=== PATIENT | male | born 1930 | race Caucasian/White ===

== ENCOUNTER → 2016-11-27 | Outpatient (CLI) | payer OTHER, BC ==
[~2016-11-27] MED LIST: ACET325T96 PO; ACET650S10 PR; ALEN70TA4 PO; ALL100 PO; AMB5 PO; ASCO1CAP3 PO; ASPI81TA28 PO; BACI500O11 NAE; BISA10SU5 PR; CARB0.5D8 OP; CHOL20009 PO; COEN100C7 PO; CYAN100020 PO; DSY/150 PO; FERR1TAB13 PO; FINA5TAB4 PO; FLUT1SPR12 NAE; FRS/40 PO; FURO40TA3 PO; GABA-112 PO; GABA1CAP4 PO; GABA1CAP5 PO; HYDRAER4 PR; LCTS240 PO; LPR25 PO; LPT40 PO; LSX20 PO; MAGN1TAB19 PO; MAGN400T6 PO; MAGNSUS5 PO; METO1TAB54 PO; METO25TA3 PO; MOMLX PO; ONDA4TAB46 PO; OXYC-57 PO; PRLSR20 PO; PROP20TA66 PO; PYRI100T4 PO; RXC5 PO; SALI0.658 NAE; SALI1SPR3 NAE; SODIENE PR; SPIR25TA PO; SPIR50TA2 PO; TRAZ50TA35 PO
[2016-11-27 10:22] LABS: BLOOD UREA NITROGEN 75 mg/dl (7-18); BUN/CREATININE RATIO 41.4 (10-20); CARBON DIOXIDE 25 mmol/L (21-32); CHLORIDE 102 mmol/L (98-107); GLUCOSE 106 mg/dl (70-99); POTASSIUM 4.9 mmol/L (3.5-5.1); SODIUM 137 mmol/L (136-145)
== END | disposition home or self-care (01) ==
LOC: C.LABFOXAC 09:09 → EDSTATUS 12-01 11:40
PROVIDERS: ATTEND Internal Medicine
DX: I50.9 Heart failure, unspecified (principal)

== ENCOUNTER → 2016-12-04 | Outpatient (CLI) | payer OTHER, BC ==
[2016-12-04 08:30] LABS: BLOOD UREA NITROGEN 57 mg/dl (7-18); BUN/CREATININE RATIO 29.7 (10-20); CALCIUM 8.1 mg/dl (8.5-10.1); CARBON DIOXIDE 23 mmol/L (21-32); CHLORIDE 108 mmol/L (98-107); GLUCOSE 128 mg/dl (70-99); POTASSIUM 5.1 mmol/L (3.5-5.1); SODIUM 140 mmol/L (136-145)
[2016-12-04 08:32] LABS: HEMATOCRIT 27.3 % (42-52); MEAN CELL VOLUME 96.5 fL (80-100); MEAN CORPUSCULAR HGB CONC 31.1 g/dl (32-36); MEAN PLATELET VOLUME 9.9 fL (7.4-10.4); PLATELET COUNT 102 K/uL (130-400); RED BLOOD COUNT 2.83 M/uL (4.7-6.1)
== END | disposition home or self-care (01) ==
LOC: C.LABFOXDH 07:57
PROVIDERS: ATTEND Internal Medicine
DX: D64.9 Anemia, unspecified (principal)

== ENCOUNTER → 2016-12-12 | Outpatient (CLI) | payer OTHER, BC ==
[2016-12-12 09:39] LABS: MEAN CELL VOLUME 94.3 fL (80-100); MEAN CORPUSCULAR HEMOGLOBIN 29.6 pg (25-34); MEAN CORPUSCULAR HGB CONC 31.4 g/dl (32-36); RED BLOOD COUNT 2.97 M/uL (4.7-6.1); WHITE BLOOD COUNT 3.95 K/uL (4.8-10.8)
[2016-12-12 09:55] LABS: BLOOD UREA NITROGEN 52 mg/dl (7-18); BUN/CREATININE RATIO 30.6 (10-20); CALCIUM 8.3 mg/dl (8.5-10.1); CARBON DIOXIDE 19 mmol/L (21-32); CHLORIDE 111 mmol/L (98-107); GLUCOSE 102 mg/dl (70-99); POTASSIUM 5.5 mmol/L (3.5-5.1); SODIUM 140 mmol/L (136-145)
[2016-12-12 10:06] LABS: MEAN PLATELET VOLUME 10.4 fL (7.4-10.4); PLATELET COUNT 91 K/uL (130-400)
== END | disposition home or self-care (01) ==
LOC: C.LABFOXDH 08:56
PROVIDERS: ATTEND Internal Medicine
DX: I50.22 Chronic systolic (congestive) heart failure (principal)

== ENCOUNTER → 2017-02-09 | Outpatient (CLI) | payer OTHER, BC ==
[~2017-02-09] MED LIST changes: +HYDR1AER23 PR; -HYDRAER4 PR
[2017-02-09 08:01] LABS: HEMATOCRIT 30.3 % (42-52); MEAN CELL VOLUME 91.8 fL (80-100); MEAN CORPUSCULAR HGB CONC 32.7 g/dl (32-36); MEAN PLATELET VOLUME 12.4 fL (7.4-10.4); PLATELET COUNT 83 K/uL (130-400); WHITE BLOOD COUNT 3.54 K/uL (4.8-10.8)
[2017-02-09 08:08] LABS: BLOOD UREA NITROGEN 72 mg/dl (7-18); MAGNESIUM 2.8 mg/dl (1.8-2.4)
[2017-02-09 08:15] LABS: FERRITIN 101.4 ng/ml (8.0-388.0); TOTAL IRON BINDING CAPACITY 347 mcg/dl (250-450)
[2017-02-09 08:17] LABS: BASO % 0.3 %; BASO ABS # 0.01 K/uL (0-0.2); COMPLETE YES; EOS % 2.5 %; IG% 0.3 %; LYMPH % 27.7 %; LYMPH ABS # 0.98 K/uL (1.2-3.4); MONO % 9.6 %; NEUT % 59.6 %
[2017-02-09 08:19] LABS: PLT ESTIMATE DECREASED; POIKILOCYTOSIS PRESENT
--- NOTE | 2017-03-07 13:37 | EDITING REQUIRED CODING QUERY ---
CQSUPPORTING DIAGNOSIS NEEDED A supporting diagnosis is required for the test/procedure performed on this patient in order for us to be reimbursed by the patient's insurance. Please provide a supporting diagnosis for the following test/procedure listed below next to the test name along with your signature. *If there is no additional diagnosis for this patient that would support the following test/procedure please document that below next to the test/procedure. Test(s)/Procedure(s) that require a supporting diagnosis: DOS 02/09/17 FOUR TESTS FOR SERUM IRON STUDIES DX: D64.9 Anemia, unspecified Provider Signature: Date: Thank you Robina Gurrola Health Information Management Once completed, please kindly fax back to [phone] For questions please call [phone]
== END | disposition home or self-care (01) ==
LOC: C.LABFOXDH 07:40
PROVIDERS: ATTEND Internal Medicine Cardiovascular Disease
DX: N18.3 Chronic kidney disease, stage 3 (moderate) (principal); N25.81 Secondary hyperparathyroidism of renal origin; I25.10 Atherosclerotic heart disease of native coronary artery without angina pectoris; D64.9 Anemia, unspecified

== ENCOUNTER → 2017-02-12 | Outpatient (CLI) | payer OTHER, BC ==
[2017-02-12 15:03] LABS: URINE APPEARANCE CLEAR (CLEAR); URINE BILIRUBIN NEG (NEG); URINE COLOR YELLOW; URINE EPITHELIAL CELL AUTO 0-5 /lpf (0-5); URINE NITRITE NEG (NEG); URINE SPECIFIC GRAVITY 1.018 (1.000-1.030); UROBILINOGEN NEG (NEG); ZZUR CULT IF INDIC CLEAN CATCH NO
[2017-02-12 15:08] LABS: MANUAL MICROSCOPIC REQUIRED? NO; REVIEW REQ? NO
[2017-02-12 15:23] LABS: URINE PROTIEN/CREAT RATIO 0.6 (0-0.2); URINE TOTAL PROTEIN 40.4 mg/dl (0-11.9)
== END | disposition home or self-care (01) ==
LOC: C.LAB1850 13:43
PROVIDERS: ATTEND Internal Medicine Nephrology
DX: N28.9 Disorder of kidney and ureter, unspecified (principal)

== ENCOUNTER → 2017-02-14 | Outpatient (CLI) | payer OTHER, BC ==
[~2017-02-14] MED LIST changes: -MAGN1TAB19 PO
--- NOTE | 2017-02-14 13:21 | DIAGNOSTIC IMAGING REPORT ---
C-SPINE ROUTINE W/FLEX EXT CLINICAL HISTORY: NECK PAIN COMPARISON STUDY: Cervical spine CT 09/26/2009 FINDINGS: 8 images of the cervical spine submitted. Straightening of the cervical spine. Alignment remains intact through both flexion and extension. Prevertebral soft tissues and the C1-C2 interval are maintained. No fracture or subluxation. Mild disc space narrowing at C2-C3 and C3-C4. Moderate disc space narrowing at C4-C5. Severe disc space narrowing and small endplate osteophytes at C5-C6 and C6-C7. Severe bilateral neural foraminal narrowing at C3-C4 and C4-C5. IMPRESSION: 1. Straightening of the cervical spine. Alignment remains intact through both flexion and extension. 2. Multilevel degenerative disc disease as described above. 3. Severe bilateral neural foraminal narrowing at C3-C4 and C4-C5. Electronically signed by: Bryan Roman M.D. 02/14/2017 1:19 PM Dictated Date/Time: 02/14/2017 1:16 PM
--- NOTE | 2017-02-14 15:29 | Pain Clinic Return Visit ---
Pain Clinic Return Visit Date of Service Feb 13, 2017. Reason For Visit 1. Diabetic peripheral neuropathy. 2. Cervical spine pain. Subjective Abhijeet Lanza is a 86-year-old male who presents to follow up evaluation. He has history of diabetic peripheral neuropathy and has been experiencing bilateral lower extremity numbness paresthesia and dysesthesia. At the last visit, he was prescribed topical gel to apply to both feet as well as gabapentin for his peripheral neuropathy. His gabapentin dose was recently increased prior to this visit. He reports good efficacy from the combination and reports decreased in the symptoms of diabetic peripheral neuropathy in his feet. He denies any side effects to the use of gabapentin and oxycodone on a when necessary basis. He reports that his peripheral neuropathy is well controlled at present time. However, today he complains of expressing new onset of right-sided cervical spine pain. He reports that his massages next several days ago and has been experiencing moderately severe pain with left lateral rotation or left lateral tilt with the pain being localized in the lateral right cervical spine. He denies any radiation into the upper extremity. He denies any gait disturbance related to his new onset of cervical spine pain. He rates his cervical spine pain as 8/10 when severe. He reports pain to be 0/ 10 when he is immobile. Pain occurs consistently with rotation of his cervical spine to the right side. Pain improves with keeping his head immobile. Denies any fevers, chills, loss of bowel bladder control, saddle anesthesia, any upper extremity motor weakness or distal radiation of the pain. Home Medications Scheduled Alendronate Sodium (Fosamax), 70 MG PO WK Allopurinol (Allopurinol), 1 TAB PO QAM Ascorbic Acid (Vitamin C), 500 MG PO QAM Aspirin (Aspirin Ec), 81 MG PO QAM Atorvastatin (Atorvastatin Calcium), 40 MG PO QAM Cholecalciferol (Vitamin D), 1 TAB PO QAM Coenzyme Q10 (Ubidecarenone) (Coq10), 100 MG PO QAM Cyanocobalamin (Vitamin B12), 1 TAB PO QAM Ferrous Sulfate (Kp Ferrous Sulfate), 1 TAB PO DAILY Finasteride (Proscar), 5 MG PO QAM Gabapentin (Neurontin), 400 MG PO HS Gabapentin (Neurontin), 1 CAP PO HS Propranolol HCl (Propranolol HCl), 40 MG PO TID Pyridoxine (Vitamin B6), 100 MG PO QAM Zolpidem Tartrate (Zolpidem Tartrate), 1 TAB PO HS Scheduled PRN Acetaminophen Tab (Tylenol), 650 MG PO Q4H PRN for RN Carboxymethylcellulose-Glyceri (Optive Sensitive), Unknown Dose OP UD PRN for EYE DISCOMFORT Magnesium Hydroxide (Milk Of Magnesia), 30 ML PO Q2D PRN for RN Oxycodone/Acetaminophen 5MG/325MG (Percocet 5MG/325MG), 1-2 TABLETS PO Q4H PRN for Pain Miscellaneous Medications Gabapentin (Neurontin), 200 MG PO Allergies Coded Allergies: No Known Allergies (Verified , 01/02/17) Review of Systems Denies any recent history of fever, night sweats, unexplained weight loss, or constitutional symptoms. Otherwise, 8 point review of system has been reported to be negative. Objective Height feet, inches. Weight (Kilograms) (Pounds) Physical Exam: Mr. Lanza appears his stated age of 86. He is awake and alert. He is oriented time, place and person. He has poor short-term recall. He sensorium is clear. His cognition is intact. Inspection cervical spine demonstrates exaggerated cervical lordosis. He has decreased range of motion of the cervical spine, especially with right lateral rotation or right tilt. There is crepitus with rotation of the cervical spine in all planes. Provocative testing of the facet joint produces pain in the mid cervical spine on the right side. There is diffuse myofascial tenderness along the posterior and lateral cervical spine muscles. Spurling's maneuver is negative. He demonstrates intact and symmetrical motor strength and sensation in the upper extremities without deficits. Gait is unsteady, guarded and shuffling. Laboratory / Imaging Test 12/12/16 06:10 02/09/17 06:20 02/12/17 00:00 Range/Units Sodium Level 140 136-145 mmol/L Potassium Level 5.5 H 3.5-5.1 mmol/L Chloride Level 111 H 98-107 mmol/L Carbon Dioxide Level 19 L 21-32 mmol/L Anion Gap 10.0 3-11 mmol/L BUN/Creatinine Ratio 30.6 H 10-20 Random Glucose 102 H 70-99 mg/dl Calcium Level 8.3 L 8.5-10.1 mg/dl White Blood Count 3.54 L 4.8-10.8 K/uL Red Blood Count 3.30 L 4.7-6.1 M/uL Hemoglobin 9.9 L 14.0-18.0 g/dL Hematocrit 30.3 L 42-52 % Mean Corpuscular Volume 91.8 80-100 fL Mean Corpuscular Hemoglobin 30.0 25-34 pg Mean Corpuscular Hemoglobin Concent 32.7 32-36 g/dl Platelet Count 83 L 130-400 K/uL Mean Platelet Volume 12.4 H 7.4-10.4 fL Neutrophils (%) (Auto) 59.6 % Lymphocytes (%) (Auto) 27.7 % Monocytes (%) (Auto) 9.6 % Eosinophils (%) (Auto) 2.5 % Basophils (%) (Auto) 0.3 % Neutrophils # (Auto) 2.11 1.4-6.5 K/uL Lymphocytes # (Auto) 0.98 L 1.2-3.4 K/uL Monocytes # (Auto) 0.34 0.11-0.59 K/uL Eosinophils # (Auto) 0.09 0-0.5 K/uL Basophils # (Auto) 0.01 0-0.2 K/uL RDW Standard Deviation 53.8 H 36.4-46.3 fL RDW Coefficient of Variation 16.1 H 11.5-14.5 % Immature Granulocyte % (Auto) 0.3 % Immature Granulocyte # (Auto) 0.01 0.00-0.02 K/uL Platelet Estimate DECREASED L Poikilocytosis PRESENT Blood Urea Nitrogen 72 H 7-18 mg/dl Creatinine 2.30 H 0.60-1.40 mg/dl Estimated GFR () 28.3 Estimated GFR (Non- 24.4 Magnesium Level 2.8 H 1.8-2.4 mg/dl Iron Level 43 35-175 mcg/dl Total Iron Binding Capacity 347 250-450 mcg/dl Transferrin 277 200-360 mg/dl Transferrin % Saturation 11 L 20-50 % Ferritin 101.4 8.0-388.0 ng/ml 25-Hydroxy Vitamin D Total 38.5 30-100 ng/ml Parathyroid Hormone (Intact) 52.3 11.1-79.5 pg/mL Urine Color YELLOW Urine Appearance CLEAR CLEAR Urine pH 5.0 4.5-7.5 Urine Specific [place] 1.018 1.000-1.030 Urine Protein TRACE H NEG Urine Glucose (UA) NEG NEG Urine Ketones NEG NEG Urine Occult Blood NEG NEG Urine Nitrite NEG NEG Urine Bilirubin NEG NEG Urine Urobilinogen NEG NEG Urine Leukocyte Esterase NEG NEG Urine WBC (Auto) 0 0-5 /hpf Urine RBC (Auto) 0-4 0-4 /hpf Urine Hyaline Casts (Auto) 1-5 0-5 /lpf Urine Epithelial Cells (Auto) 0-5 0-5 /lpf Urine Bacteria (Auto) NEG NEG Urine Random Creatinine 71.0 mg/dl Urine Random Total Protein 40.4 H 0-11.9 mg/dl Urine Random Sodium 53 mEq/L Urine Protein/Creatinine Ratio 0.6 H 0-0.2 No cervical spine imaging available. Patient scheduled to undergo cervical spine x-rays at [facility] tomorrow. Assessment 1. Diabetic peripheral polyneuropathy. Improving symptoms her current treatment regimen. 2. Cervical spondylosis. 3. Myofascial pain cervical spine, right side. Recommendations 1. Continue current treatment regimen for the diabetic peripheral polyneuropathy. 2. Recommend physical therapy with soft tissue techniques, electrical stimulation, ultrasound, heat and active and passive range of motion for the cervical spine pain. 3. If physical therapy is not efficacious, would then recommend diagnostic medial branch blocks or intra-articular cervical facet joint injections. 4. [] 5. [] Follow-Up After physical therapy completed. Dragon Voice Recognition This chart was completed in part utilizing [employer] Voice Recognition Software. Random word insertions, pronoun errors, and incomplete sentences are an occasional consequence of this system due to software limitations and ambient noise. Any questions or concerns about the content, text or information contained within the body of this dictation should be directly addressed to the provider for clarification.
== END | disposition home or self-care (01) ==
LOC: C.RAD 11:59
PROVIDERS: ATTEND Internal Medicine
DX: M50.30 Other cervical disc degeneration, unspecified cervical region (principal)

== ENCOUNTER 2017-02-21 12:07 | Inpatient (IN) | payer OTHER, BC ==
[~2017-02-21] VITALS: Ht 175.3 cm; Wt 73.8 kg
[~2017-02-21 12:07] MED LIST changes: -ACET650S10 PR; -BACI500O11 NAE; -BISA10SU5 PR; -DSY/150 PO; -FLUT1SPR12 NAE; -FRS/40 PO; -FURO40TA3 PO; -GABA1CAP4 PO; -HYDR1AER23 PR; -LCTS240 PO; -LPR25 PO; -LSX20 PO; -MAGN400T6 PO; -METO1TAB54 PO; -METO25TA3 PO; -MOMLX PO; -ONDA4TAB46 PO; -PRLSR20 PO; -RXC5 PO; -SALI0.658 NAE; -SALI1SPR3 NAE; -SODIENE PR; -SPIR25TA PO; -SPIR50TA2 PO; -TRAZ50TA35 PO
[2017-02-21] MEDS ORDERED: RAPID SEQUENCE INDUCTION BAG ONE (12:17)
--- NOTE | 2017-02-21 12:44 | DIAGNOSTIC IMAGING REPORT ---
CT SCAN OF THE BRAIN WITHOUT IV CONTRAST CLINICAL HISTORY: Unresponsive. COMPARISON STUDY: CT of the brain dated 06/21/2015. TECHNIQUE: Unenhanced axial CT scan of the brain is performed from the vertex to the skull base. CT DOSE: 1362.80 mGy.cm FINDINGS: Brain parenchyma: There are age-related involutional changes noting moderate confluent subcortical and periventricular microangiopathic change. There is no hemorrhage, mass effect, or evidence of acute territorial ischemia by CT criteria. 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 A chronic lacunar infarct is noted in the left caudate head. Camara-white matter is preserved. No extra-axial fluid collection is seen. Ventricles, sulci, cisterns: Prominent secondary to involutional change. Intracranial vasculature: There is atherosclerotic calcification of the cavernous carotid and vertebral arteries. Calvarium: The skeletal structures are osteopenic. No depressed calvarial fracture is seen. Sinuses and mastoids: Trace mucosal thickening is seen within the left sphenoid sinus. The remaining visualized paranasal sinuses are clear. The mastoid air cells are well pneumatized. Orbits: The bony orbits are grossly intact. IMPRESSION: Senescent changes as above with no hemorrhage, mass effect, or evidence of acute territorial ischemia by CT criteria. Electronically signed by: Wolfgang Howe M.D. 02/21/2017 12:42 PM Dictated Date/Time: 02/21/2017 12:40 PM
--- NOTE | 2017-02-21 12:51 | DIAGNOSTIC IMAGING REPORT ---
CT SCAN OF THE CHEST WITHOUT IV CONTRAST CLINICAL HISTORY: Unresponsive. COMPARISON STUDY: Chest CT scan dated 10/05/2016 and 08/15/2015. CT angiogram of the chest dated 10/05/2016. TECHNIQUE: CT scan of the thorax was performed from the thoracic inlet to the upper abdomen. Images are reviewed in the axial, sagittal, and coronal planes. IV contrast was not administered for this examination as per the referring clinician. The examination is degraded by streak artifact from the patient's arms which could not be elevated above the chest. The examination is also degraded by motion artifact. FINDINGS: Thyroid: Imaged portions of the thyroid gland are normal in size and attenuation. Thoracic aorta: There is atherosclerotic calcification of the thoracic aorta. The aortic arch demonstrates standard 3-vessel anatomy. There is unchanged aneurysmal dilatation of the ascending thoracic aorta which measures up to 6.5 cm in diameter. There is no evidence of intramural hematoma or periaortic hemorrhage. The aortic arch and the descending thoracic aorta are normal in caliber. A dissection flap is again seen within the ascending thoracic aorta as seen on image #[id number]. Heart: The heart is markedly enlarged and without pericardial effusion. There is diminished attenuation of the cardiac blood pool as compared to the myocardium suggesting anemia. The coronary arteries and mitral annulus are densely calcified. Lungs and pleural spaces: Emphysema is observed. There is a small right pleural effusion with associated atelectasis. No airspace consolidation is identified typical for pneumonia. A calcified granuloma is seen at the left lung base. No left pleural effusion is identified. There is no airspace consolidation typical for pneumonia. The trachea and central airways appear clear. A tracheal diverticulum is identified at the thoracic inlet. Mediastinum: There is no mediastinal lymphadenopathy. There are calcification containing subcarinal nodes. Ana: Not well assessed without IV contrast. Axillae: There is no axillary lymphadenopathy. Upper abdomen: The liver is cirrhotic in morphology and heterogeneous in attenuation. There is nodularity of the hepatic surface contour. Upper abdominal ascites is identified. Gynecomastia is noted. Skeletal structures: The skeletal structures are osteopenic. Degenerative change is noted throughout the thoracic spine. Again seen are mild superior endplate compression deformities of T2, T3, and T4. No lytic or blastic bony lesions are identified. IMPRESSION: 1. 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 A focal dissection is unchanged as visualized on this unenhanced examination. There is no CT evidence of aneurysm rupture. 2. Emphysema. A small right pleural effusion is again noted. No airspace consolidation is identified typical for pneumonia. 3. Marked cardiomegaly. 4. Cirrhotic liver morphology and upper abdominal ascites. 5. Additional findings as above. Electronically signed by: Wolfgang Howe M.D. 02/21/2017 12:49 PM Dictated Date/Time: 02/21/2017 12:42 PM
[2017-02-21 13:08] LABS: ISTAT HEMOGLOBIN 11.6 g/dl (14.0-18.0); ISTAT IONIZED CALCIUM 1.24 mmol/l (1.12-1.32)
[2017-02-21 13:09] LABS: HEMATOCRIT 32.9 % (42-52); MEAN CELL VOLUME 94.8 fL (80-100); MEAN CORPUSCULAR HEMOGLOBIN 30.3 pg (25-34); MEAN CORPUSCULAR HGB CONC 31.9 g/dl (32-36); RED BLOOD COUNT 3.47 M/uL (4.7-6.1); WHITE BLOOD COUNT 3.62 K/uL (4.8-10.8)
[2017-02-21 13:11] LABS: MEAN PLATELET VOLUME 10.5 fL (7.4-10.4); PLATELET COUNT 70 K/uL (130-400)
--- NOTE | 2017-02-21 13:11 | DIAGNOSTIC IMAGING REPORT ---
CT SCAN OF THE ABDOMEN AND PELVIS WITHOUT CONTRAST CLINICAL HISTORY: Syncope. Renal failure. Possible ruptured abdominal aortic aneurysm. Unresponsive patient. COMPARISON STUDY: 10/05/2016 TECHNIQUE: CT scan of the abdomen and pelvis was performed from the lung bases to the proximal femurs. Images are reviewed in the axial, sagittal, and coronal planes. IV contrast was not administered for this examination. CT DOSE: FINDINGS: Lower chest: The heart is enlarged. There are coronary artery calcifications. There is a small right pleural effusion. Liver: The liver has a cirrhotic morphology. No focal masses are visualized in this noncontrast study. Gallbladder: Unremarkable. Spleen: Normal in size and attenuation. Pancreas: Unremarkable. Adrenal glands: Unremarkable. Kidneys: The unenhanced kidneys are normal in size without hydronephrosis. There is no contour deforming renal mass lesion. No renal calculi are identified. Bowel: There are no transition zones indicate bowel obstruction. There is colonic diverticulosis. Peritoneum: No free air is visualized. There is low to moderate volume ascites which is decreased when compared the preceding study Vasculature: There is a 51 mm infrarenal abdominal aortic aneurysm. Adenopathy: None. Pelvic viscera: The bladder, and pelvic viscera are unremarkable. Skeletal structures: There is a stable nonaggressive sclerotic lesion with thin the left proximal femur. There are multilevel degenerative changes within the spine IMPRESSION: 1. Cardiomegaly, coronary artery calcifications, and right pleural effusion 2. Cirrhotic liver morphology. Low to moderate volume ascites which has decreased when compared the prior study 3. Stable 51 mm infrarenal abdominal aortic aneurysm. No evidence of rupture on this noncontrast study 4. No evidence of bowel obstruction. No evidence of free air 5. Diverticulosis Electronically signed by: Manas Bautista M.D. 02/21/2017 1:09 PM Dictated Date/Time: 02/21/2017 1:02 PM
[2017-02-21 13:21] LABS: INR 1.3 (0.9-1.1); PROTHROMBIN TIME (PATIENT) 13.5 SECONDS (9.0-12.0)
[2017-02-21 13:29] LABS: CALCIUM 8.7 mg/dl (8.5-10.1); CREATININE 2.1 mg/dl (0.60-1.40)
[2017-02-21 13:35] LABS: BASO % 0.3 %; BASO ABS # 0.01 K/uL (0-0.2); COMPLETE YES; EOS % 1.7 %; IG% 0.3 %; LYMPH % 23.8 %; LYMPH ABS # 0.86 K/uL (1.2-3.4); MONO % 11.6 %; NEUT % 62.3 %; OVALOCYTES 2+
[2017-02-21] MEDS ORDERED: METO25TA3 PO (14:01)
[2017-02-21] MEDS ORDERED: SPIR25TA PO (14:01)
[2017-02-21] MEDS ORDERED: PRLSR20 PO (14:01)
[2017-02-21] MEDS ORDERED: FRS/40 PO (14:01)
[2017-02-21] MEDS ORDERED: TRAZ50TA35 PO (14:01)
[2017-02-21] MEDS ORDERED: NALOXONE HCL 0.4 MG/1 ML VIAL/CARP IV STA (14:55)
[2017-02-21] MEDS ORDERED: ACETAMINOPHEN IV 650 MG in EMPTY BAG 0 ML IV PRN (15:15)
[2017-02-21] MEDS ORDERED: ONDANSETRON INJ 2 MG/ML 2 ML VIAL IV PRN (15:15)
[2017-02-21] MEDS ORDERED: NALOXONE HCL 0.4 MG/1 ML VIAL/CARP ONE (15:42)
--- NOTE | 2017-02-21 15:54 | History and Physical ---
History & Physical Date & Time of Service: Feb 21, 2017 at 15:25 Chief Complaint: Unresponsive Primary Care Physician: Vikas Cook M.D. History of Present Illness Source: family, clinic records, hospital records 86 yo male with history of cirrhosis, aortic aneurysm, aortic stenosis, peripheral neuropathy, chronic pain who presented to the EMS today due to unresponsiveness. The history was obtained from patient's who was present at the time of his episode, however, her history is limited due to dementia. According to his the patient was acting normal this morning when he woke up. He was given his medication by the nurse at [facility] so it is highly unlikely that he took too many medications (he takes Percocet, Neurontin, Ambien which all could be sedating). The patient and his went to breakfast around 11am. While eating the patient became more and more lethargic and then it was as if he just drifted off to sleep but he was completely unresponsive. Again, I asked his if he was complaining of anything this morning like pain or nausea or chest pain or trouble breathing and she said no. He was brought to the ED by EMS and he was bradycardic and borderline hypotensive. Initially there were concerns about his ability to protect his airway so plans were made for intubation but the ED physician confirmed with his PCP that the patient is a DNR, DNI. A grimes was placed and the pain of the catheter woke the patient up and he was able to talk a little bit but quickly drifted back to sleep. CT scan of his brain, chest, abdomen/pelvis showed some chronic problems but nothing acute that would explain his presentation. EKG showed atrial fibrillation with slowed ventricular response, no obvious signs of ischemia. Troponin negative. Cr at baseline at 2.1. Electrolytes normal. WBC normal. Mild chronic anemia and chronic thrombocytopenia. Asked RN to give Narcan 0.4mg IV x 1, no response. Past Medical/Surgical History Medical Problems: (1) Abdominal aortic aneurysm Status: Chronic (2) ATRIAL FIBRILLATION Status: Chronic (3) Back pain, lumbosacral Status: Resolved (4) CA IN SITU SCALP Status: Resolved (5) CORONARY ATHEROSCLEROSIS OF [place] CORONARY VESSEL Status: Chronic (6) Diabetes Status: Chronic (7) Heart disease Status: Chronic (8) Heart murmur Status: Chronic (9) Herpes zoster Status: Resolved (10) Hypertension Status: Chronic (11) HYPERTENSION NOS Status: Chronic (12) Malignant melanoma Status: Resolved Surgical Problems: (1) History of herniorrhaphy Status: Resolved Family History Cancer Heart disease Hypertension Social History Smoking Status: Never Smoker Drug Use: none Marital Status: Housing status: lives with significant other Occupational Status: retired Multi-Drug Resistant Organisms History of MDRO: No Allergies Coded Allergies: No Known Allergies (Verified , 01/02/17) Home Medications Scheduled Alendronate Sodium (Fosamax), 70 MG PO WK Allopurinol (Allopurinol), 1 TAB PO QAM Ascorbic Acid (Vitamin C), 500 MG PO QAM Aspirin (Aspirin Ec), 81 MG PO QAM Atorvastatin (Atorvastatin Calcium), 40 MG PO QAM Cholecalciferol (Vitamin D), 1 TAB PO QAM Coenzyme Q10 (Ubidecarenone) (Coq10), 100 MG PO QAM Cyanocobalamin (Vitamin B12), 1 TAB PO QAM Ferrous Sulfate (Kp Ferrous Sulfate), 1 TAB PO DAILY Finasteride (Proscar), 5 MG PO QAM Gabapentin (Neurontin), 400 MG PO HS Gabapentin (Neurontin), 1 CAP PO HS Metoprolol Succ (Toprol Xl) (Toprol-Xl), 25 MG PO DAILY Omeprazole (Prilosec), 20 MG PO DAILY Propranolol HCl (Propranolol HCl), 40 MG PO TID Pyridoxine (Vitamin B6), 100 MG PO QAM Zolpidem Tartrate (Zolpidem Tartrate), 1 TAB PO HS Scheduled PRN Acetaminophen Tab (Tylenol), 650 MG PO Q4H PRN for RN Carboxymethylcellulose-Glyceri (Optive Sensitive), Unknown Dose OP UD PRN for EYE DISCOMFORT Oxycodone/Acetaminophen 5MG/325MG (Percocet 5MG/325MG), 1-2 TABLETS PO Q4H PRN for Pain Miscellaneous Medications Furosemide (Lasix), 40 MG PO Gabapentin (Neurontin), 200 MG PO Spironolactone (Aldactone), 25 MG PO Trazodone Hcl (Trazodone), 50 MG PO Review of Systems cannot review because patient without any verbal responses Physical Exam Vital Signs Date Time Temp Pulse Resp B/P Pulse Ox O2 Delivery O2 Flow Rate FiO2 02/21/17 13:31 56 24 115/74 Nasal Cannula 4.0 02/21/17 13:16 66 18 123/75 98 Diffusion Mask 10.0 02/21/17 12:16 36.4 64 22 115/81 83 Non-Rebreather 10.0 General Appearance: WD/WN, no apparent distress Head: normocephalic, atraumatic Eyes: normal inspection, PERRL, sclerae normal ENT: + pertinent finding (dry tongue and mucous membranes) Neck: supple, no adenopathy, no JVD, trachea midline Respiratory/Chest: chest non-tender, lungs clear, normal breath sounds, no respiratory distress, no accessory muscle use Cardiovascular: no edema, no gallop, no JVD, normal peripheral pulses, + systolic murmur (harsh, 4 of 6), + irregularly irregular Abdomen/GI: normal bowel sounds, non tender, soft, no organomegaly Back: normal inspection, no CVA tenderness, no muscle spasm, normal range of motion Neurologic/Psych: + pertinent finding (lethargic, will wake to noxious and verbal stimuli but quickly asleep again) Skin: warm/dry, no rash, + pertinent finding (venous stasis changes in lower legs) Diagnostics Laboratory Results Results Past 24 Hours Test 02/21/17 12:49 02/21/17 12:55 Range/Units White Blood Count 3.62 4.8-10.8 K/uL Red Blood Count 3.47 4.7-6.1 M/uL Hemoglobin 10.5 14.0-18.0 g/dL Hematocrit 32.9 42-52 % Mean Corpuscular Volume 94.8 80-100 fL Mean Corpuscular Hemoglobin 30.3 25-34 pg Mean Corpuscular Hemoglobin Concent 31.9 32-36 g/dl Platelet Count 70 130-400 K/uL Mean Platelet Volume 10.5 7.4-10.4 fL Neutrophils (%) (Auto) 62.3 % Lymphocytes (%) (Auto) 23.8 % Monocytes (%) (Auto) 11.6 % Eosinophils (%) (Auto) 1.7 % Basophils (%) (Auto) 0.3 % Neutrophils # (Auto) 2.26 1.4-6.5 K/uL Lymphocytes # (Auto) 0.86 1.2-3.4 K/uL Monocytes # (Auto) 0.42 0.11-0.59 K/uL Eosinophils # (Auto) 0.06 0-0.5 K/uL Basophils # (Auto) 0.01 0-0.2 K/uL RDW Standard Deviation 56.2 36.4-46.3 fL RDW Coefficient of Variation 16.2 11.5-14.5 % Immature Granulocyte % (Auto) 0.3 % Immature Granulocyte # (Auto) 0.01 0.00-0.02 K/uL Ovalocytes 2+ Prothrombin Time 13.5 9.0-12.0 SECONDS Prothromb Time International Ratio 1.3 0.9-1.1 Activated Partial Thromboplast Time 26.8 21.0-31.0 SECONDS Partial Thromboplastin Ratio 1.0 Sodium Level 140 136-145 mmol/L Potassium Level 5.0 3.5-5.1 mmol/L Chloride Level 106 98-107 mmol/L Carbon Dioxide Level 29 21-32 mmol/L Anion Gap 5.0 18.0 16-25 mmol/L Blood Urea Nitrogen 57 7-18 mg/dl Creatinine 2.10 0.60-1.40 mg/dl Est Creatinine Clear Calc Drug Dose 26.6 ml/min Estimated GFR () 31.6 Estimated GFR (Non- 27.3 BUN/Creatinine Ratio 27.0 10-20 Random Glucose 116 70-99 mg/dl Calcium Level 8.7 8.5-10.1 mg/dl Total Bilirubin 0.5 0.2-1 mg/dl Direct Bilirubin 0.2 0-0.2 mg/dl Aspartate Amino Transf (AST/SGOT) 29 15-37 U/L Alanine Aminotransferase (ALT/SGPT) 29 12-78 U/L Alkaline Phosphatase 145 45-117 U/L Troponin I 0.020 0-0.045 ng/ml Total Protein 7.7 6.4-8.2 gm/dl Albumin 3.7 3.4-5.0 gm/dl Bedside Hemoglobin 11.6 14.0-18.0 g/dl Bedside Hematocrit 34 42-52 % Bedside Sodium 140 135-144 mEq/L Bedside Potassium 5.1 3.3-5.0 mEq/L Bedside Chloride 102 101-112 mEq/L Bedside Total CO2 26 24-31 mEq/l Bedside Blood Urea Nitrogen 52 7-18 mg/dl Bedside Creatinine 2.0 0.6-1.3 mg/dl Bedside Glucose (other) 112 70-99 mg/dl Bedside Ionized Calcium (Pilar) 1.24 1.12-1.32 mmol/l Diagnostic Radiology CT HEAD IMPRESSION: Senescent changes as above with no hemorrhage, mass effect, or evidence of acute territorial ischemia by CT criteria. CT ABDOMEN/PELVIS IMPRESSION: 1. Cardiomegaly, coronary artery calcifications, and right pleural effusion 2. Cirrhotic liver morphology. Low to moderate volume ascites which has decreased when compared the prior study 3. Stable 51 mm infrarenal abdominal aortic aneurysm. No evidence of rupture on this noncontrast study 4. No evidence of bowel obstruction. No evidence of free air 5. Diverticulosis CT CHEST IMPRESSION: 1. 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 A focal dissection is unchanged as visualized on this unenhanced examination. There is no CT evidence of aneurysm rupture. 2. Emphysema. A small right pleural effusion is again noted. No airspace consolidation is identified typical for pneumonia. 3. Marked cardiomegaly. 4. Cirrhotic liver morphology and upper abdominal ascites. 5. Additional findings as above. EKG atrial fibrillation with slowed ventricular response Impression Assessment and Plan 86 yo male with unresponsiveness, started 11am, no apparent etiology - Encephalopathy, unclear etiology: no obvious infectious cause with normal WBC , no infection seen in lungs or abdomen on CT will check UA and urine culture could be cardiac ischemia, cycle enzymes and repeat EKG in the AM, admit to tele could be stroke, will check MRI brain doubt narcotics overdose as the patient does not administer his own medications and Narcan did not improve his mental state could be polypharmacy with Percocet, Ambien and Neurontin in elderly patient with CKD for now will give supportive care with fluid and follow up on testing - CKD stage IV: stable with Cr 2.1, will give gentle fluids since too lethargic to eat/drink - Aortic aneurysm: stable according to prior scans, certainly with multiple comorbidities he is too high risk for intervention - Aortic stenosis: severe on echo in 2016 with EF 50-55% - Chronic pain: follows with pain clinic, prescribed Neurontin and Percocet PRN , could be playing role in somnolence Neurontin is newer prescription - Atrial fibrillation: rates controlled, typically takes metoprolol but will hold while lethargic - Cirrhosis: evident with thrombocytopenia, INR 1.[address] scan typically takes Lasix and Spironolactone but will hold given lethargy - DVT prophylaxis: chemical contraindicated with low platelets DNR, DNI Level of Care Telemetry Advanced Directives Existing Living Will: Yes Resuscitation Status DO NOT RESUSCITATE VTE Prophylaxis VTE Risk Assessment Done? Y/N: Yes Risk Level: High Given or contraindicated: Contraindicated Additional Copies To Vikas Cook M.D.
--- NOTE | 2017-02-21 16:08 | EMERGENCY ROOM VISIT NOTE ---
History Report prepared by Rg: Elida Cunningham Under the Supervision of: Dr. Mau Loera M.D. First contact with patient: 12:11 Stated Complaint: UNRESPONSIVE History of Present Illness The patient is a 86 year old male who presents to the Emergency Room with complaints of sudden altered mental status that was noticed prior to arrival. The history is limited secondary to the patient's altered mental status. The patient came to the ED via ambulance from [facility]. [facility] were with [facility] then left to do something else and when they came back the patient was unresponsive so an ambulance was called. Per EMS , the patient was hypotensive with a blood sugar of 106. Currently, the patient responds to verbal stimuli and does not voice any complaints beside arm pain where blood work is being drawn. EMS states that the patient has a history of an abdominal aortic aneurysm. According to paperwork from [facility] the patient is DNR. Source of History: patient History Limited By: AMS Onset: EMBEDDED SOFTWARE ARCHITECT Position: other (global) Quality: other (altered mental status) Timing: other (sudden) Review of Systems See HPI for pertinent positives & negatives. A total of 10 systems reviewed and were otherwise negative. 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 (9) Diabetes (10) GI bleed (11) Heart disease (12) Heart murmur (13) Herpes zoster (14) Hypertension (15) HYPERTENSION NOS (16) Inguinal hernia (17) Malignant melanoma Surgical Problems: (1) History of herniorrhaphy Family History Cancer Heart disease Hypertension Social History Smoking Status: Never Smoker Alcohol Use: occasionally Drug Use: none Marital Status: Housing Status: lives with significant other Occupation Status: retired Current/Historical Medications Scheduled Alendronate Sodium (Fosamax), 70 MG PO WK Allopurinol (Allopurinol), 1 TAB PO QAM Ascorbic Acid (Vitamin C), 500 MG PO QAM Aspirin (Aspirin Ec), 81 MG PO QAM Atorvastatin (Atorvastatin Calcium), 40 MG PO QAM Cholecalciferol (Vitamin D), 1 TAB PO QAM Coenzyme Q10 (Ubidecarenone) (Coq10), 100 MG PO QAM Cyanocobalamin (Vitamin B12), 1 TAB PO QAM Ferrous Sulfate (Kp Ferrous Sulfate), 1 TAB PO DAILY Finasteride (Proscar), 5 MG PO QAM Gabapentin (Neurontin), 400 MG PO HS Gabapentin (Neurontin), 1 CAP PO HS Metoprolol Succ (Toprol Xl) (Toprol-Xl), 25 MG PO DAILY Omeprazole (Prilosec), 20 MG PO DAILY Propranolol HCl (Propranolol HCl), 40 MG PO TID Pyridoxine (Vitamin B6), 100 MG PO QAM Zolpidem Tartrate (Zolpidem Tartrate), 1 TAB PO HS Scheduled PRN Acetaminophen Tab (Tylenol), 650 MG PO Q4H PRN for RN Carboxymethylcellulose-Glyceri (Optive Sensitive), Unknown Dose OP UD PRN for EYE DISCOMFORT Oxycodone/Acetaminophen 5MG/325MG (Percocet 5MG/325MG), 1-2 TABLETS PO Q4H PRN for Pain Miscellaneous Medications Furosemide (Lasix), 40 MG PO Gabapentin (Neurontin), 200 MG PO Spironolactone (Aldactone), 25 MG PO Trazodone Hcl (Trazodone), 50 MG PO Allergies Coded Allergies: No Known Allergies (Verified , 01/02/17) Physical Exam Vital Signs Date Time Temp Pulse Resp B/P Pulse Ox O2 Delivery O2 Flow Rate FiO2 02/21/17 15:40 52 20 102/56 100 Nasal Cannula 4.0 02/21/17 13:31 56 24 115/74 Nasal Cannula 4.0 02/21/17 13:16 66 18 123/75 98 Diffusion Mask 10.0 02/21/17 12:16 36.4 64 22 115/81 83 Non-Rebreather 10.0 Physical Exam GENERAL: Patient is acutely ill appearing. HEENT: No acute trauma, normocephalic atraumatic, mucous membranes moist, no nasal congestion, no scleral icterus. NECK: No stridor, no adenopathy, no meningismus, trachea is midline. LUNGS: Dyspneic. Clear to auscultation and equal bilaterally. No wheeze, no rhonchi. HEART: Regular rate and rhythm. No murmurs, rubs, gallops appreciated. ABDOMEN: Soft, distended, nontender, bowel sounds positive, no masses appreciated, no peritonitis. BACK: No midline tenderness, no CVA tenderness EXTREMITIES: Weakly moves arms and legs, no cyanosis, no edema. NEUROLOGIC: Obtunded, awakens to loud verbal stimuli with simple one word answers, no acute motor or sensory deficits, no focal weakness, cranial nerves grossly intact. SKIN: Pale, no rash, no jaundice, no diaphoresis. Medical Decision & Procedures ER Provider Diagnostic Interpretation: Radiology results and stated below per my review and radiologist interpretation: CT SCAN OF THE BRAIN WITHOUT IV CONTRAST CLINICAL HISTORY: Unresponsive. COMPARISON STUDY: CT of the brain dated 06/21/2015. TECHNIQUE: Unenhanced axial CT scan of the brain is performed from the vertex to the skull base. CT DOSE: 1362.80 mGy.cm FINDINGS: Brain parenchyma: There are age-related involutional changes noting moderate confluent subcortical and periventricular microangiopathic change. There is no hemorrhage, mass effect, or evidence of acute territorial ischemia by CT criteria. 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 A chronic lacunar infarct is noted in the left caudate head. [place]-white matter is preserved. No extra-axial fluid collection is seen. Ventricles, sulci, cisterns: Prominent secondary to involutional change. Intracranial vasculature: There is atherosclerotic calcification of the cavernous carotid and vertebral arteries. Calvarium: The skeletal structures are osteopenic. No depressed calvarial fracture is seen. Sinuses and mastoids: Trace mucosal thickening is seen within the left sphenoid sinus. The remaining visualized paranasal sinuses are clear. The mastoid air cells are well pneumatized. Orbits: The bony orbits are grossly intact. IMPRESSION: Senescent changes as above with no hemorrhage, mass effect, or evidence of acute territorial ischemia by CT criteria. Electronically signed by: Wolfgang Howe M.D. 02/21/2017 12:42 PM Dictated Date/Time: 02/21/2017 12:[address] SCAN OF THE CHEST WITHOUT IV CONTRAST CLINICAL HISTORY: Unresponsive. COMPARISON STUDY: Chest CT scan dated 10/05/2016 and 08/15/2015. CT angiogram of the chest dated 10/05/2016. TECHNIQUE: CT scan of the thorax was performed from the thoracic inlet to the upper abdomen. Images are reviewed in the axial, sagittal, and coronal planes. IV contrast was not administered for this examination as per the referring clinician. The examination is degraded by streak artifact from the patient's arms which could not be elevated above the chest. The examination is also degraded by motion artifact. FINDINGS: Thyroid: Imaged portions of the thyroid gland are normal in size and attenuation. Thoracic aorta: There is atherosclerotic calcification of the thoracic aorta. The aortic arch demonstrates standard 3-vessel anatomy. There is unchanged aneurysmal dilatation of the ascending thoracic aorta which measures up to 6.5 cm in diameter. There is no evidence of intramural hematoma or periaortic hemorrhage. The aortic arch and the descending thoracic aorta are normal in caliber. A dissection flap is again seen within the ascending thoracic aorta as seen on image #[id number]. Heart: The heart is markedly enlarged and without pericardial effusion. There is diminished attenuation of the cardiac blood pool as compared to the myocardium suggesting anemia. The coronary arteries and mitral annulus are densely calcified. Lungs and pleural spaces: Emphysema is observed. There is a small right pleural effusion with associated atelectasis. No airspace consolidation is identified typical for pneumonia. A calcified granuloma is seen at the left lung base. No left pleural effusion is identified. There is no airspace consolidation typical for pneumonia. The trachea and central airways appear clear. A tracheal diverticulum is identified at the thoracic inlet. Mediastinum: There is no mediastinal lymphadenopathy. There are calcification containing subcarinal nodes. Ana: Not well assessed without IV contrast. Axillae: There is no axillary lymphadenopathy. Upper abdomen: The liver is cirrhotic in morphology and heterogeneous in attenuation. There is nodularity of the hepatic surface contour. Upper abdominal ascites is identified. Gynecomastia is noted. Skeletal structures: The skeletal structures are osteopenic. Degenerative change is noted throughout the thoracic spine. Again seen are mild superior endplate compression deformities of T2, T3, and T4. No lytic or blastic bony lesions are identified. IMPRESSION: 1. 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 A focal dissection is unchanged as visualized on this unenhanced examination. There is no CT evidence of aneurysm rupture. 2. Emphysema. A small right pleural effusion is again noted. No airspace consolidation is identified typical for pneumonia. 3. Marked cardiomegaly. 4. Cirrhotic liver morphology and upper abdominal ascites. 5. Additional findings as above. Electronically signed by: Wolfgang Howe M.D. 02/21/2017 12:49 PM Dictated Date/Time: 02/21/2017 12:[address] SCAN OF THE ABDOMEN AND PELVIS WITHOUT CONTRAST IMPRESSION: 1. Cardiomegaly, coronary artery calcifications, and right pleural effusion 2. Cirrhotic liver morphology. Low to moderate volume ascites which has decreased when compared the prior study 3. Stable 51 mm infrarenal abdominal aortic aneurysm. No evidence of rupture on this noncontrast study 4. No evidence of bowel obstruction. No evidence of free air 5. Diverticulosis Electronically signed by: Manas Bautista M.D. 02/21/2017 1:09 PM Dictated Date/Time: 02/21/2017 1:02 PM Laboratory Results 02/21/17 12:49 Red Blood Count 3.47, Mean Corpuscular Volume 94.8, Mean Corpuscular Hemoglobin 30.3, Mean Corpuscular Hemoglobin Concent 31.9, Mean Platelet Volume 10.5, Neutrophils (%) (Auto) 62.3, Lymphocytes (%) (Auto) 23.8, Monocytes (%) (Auto) 11.6, Eosinophils (%) (Auto) 1.7, Basophils (%) (Auto) 0.3, Neutrophils # (Auto ) 2.26, Lymphocytes # (Auto) 0.86, Monocytes # (Auto) 0.42, Eosinophils # (Auto ) 0.06, Basophils # (Auto) 0.01 02/21/17 12:49 Test 02/21/17 12:49 02/21/17 12:55 White Blood Count 3.62 K/uL (4.8-10.8) Red Blood Count 3.47 M/uL (4.7-6.1) Hemoglobin 10.5 g/dL (14.0-18.0) Hematocrit 32.9 % (42-52) Mean Corpuscular Volume 94.8 fL (80-100) Mean Corpuscular Hemoglobin 30.3 pg (25-34) Mean Corpuscular Hemoglobin Concent 31.9 g/dl (32-36) Platelet Count 70 K/uL (130-400) Mean Platelet Volume 10.5 fL (7.4-10.4) Neutrophils (%) (Auto) 62.3 % Lymphocytes (%) (Auto) 23.8 % Monocytes (%) (Auto) 11.6 % Eosinophils (%) (Auto) 1.7 % Basophils (%) (Auto) 0.3 % Neutrophils # (Auto) 2.26 K/uL (1.4-6.5) Lymphocytes # (Auto) 0.86 K/uL (1.2-3.4) Monocytes # (Auto) 0.42 K/uL (0.11-0.59) Eosinophils # (Auto) 0.06 K/uL (0-0.5) Basophils # (Auto) 0.01 K/uL (0-0.2) RDW Standard Deviation 56.2 fL (36.4-46.3) RDW Coefficient of Variation 16.2 % (11.5-14.5) Immature Granulocyte % (Auto) 0.3 % Immature Granulocyte # (Auto) 0.01 K/uL (0.00-0.02) Ovalocytes 2+ Prothrombin Time 13.5 SECONDS (9.0-12.0) Prothromb Time International Ratio 1.3 (0.9-1.1) Activated Partial Thromboplast Time 26.8 SECONDS (21.0-31.0) Partial Thromboplastin Ratio 1.0 Est Creatinine Clear Calc Drug Dose 26.6 ml/min Estimated GFR () 31.6 Estimated GFR (Non- 27.3 BUN/Creatinine Ratio 27.0 (10-20) Calcium Level 8.7 mg/dl (8.5-10.1) Total Bilirubin 0.5 mg/dl (0.2-1) Direct Bilirubin 0.2 mg/dl (0-0.2) Aspartate Amino Transf (AST/SGOT) 29 U/L (15-37) Alanine Aminotransferase (ALT/SGPT) 29 U/L (12-78) Alkaline Phosphatase 145 U/L (45-117) Troponin I 0.020 ng/ml (0-0.045) Total Protein 7.7 gm/dl (6.4-8.2) Albumin 3.7 gm/dl (3.4-5.0) Bedside Hemoglobin 11.6 g/dl (14.0-18.0) Bedside Hematocrit 34 % (42-52) Bedside Sodium 140 mEq/L (135-144) Bedside Potassium 5.1 mEq/L (3.3-5.0) Bedside Chloride 102 mEq/L (101-112) Bedside Total CO2 26 mEq/l (24-31) Anion Gap 18.0 mmol/L (16-25) Bedside Blood Urea Nitrogen 52 mg/dl (7-18) Bedside Creatinine 2.0 mg/dl (0.6-1.3) Bedside Glucose (other) 112 mg/dl (70-99) Bedside Ionized Calcium (Pilar) 1.24 mmol/l (1.12-1.32) Laboratory results as reviewed by me. Medications Administered Medications (Trade) Dose Ordered Sig/Jossie Route Start Time Stop Time Status Last Admin Dose Admin Naloxone HCl (Narcan Inj) 0.4 mg STK-MED ONCE .ROUTE 02/21/17 15:42 02/21/17 15:43 DC 02/21/17 15:38 0.4 MG ECG Indication: altered mental status Rate (beats per minute): 59 Rhythm: atrial fibrillation Findings: no acute ischemic change, other (decreased voltage) ED Course 1209: The patient was evaluated in room B1. A complete history and physical exam was performed. 1211: Discussed the patient's case with Dr. Cook - [facility]. He confirms that the patient is DNI and DNR. He adds that the patient was discharged from [facility] recently for a GI bleed. He was intubated there and made it clear that he does not want intubation again. 1214: FAST ultrasound revealed diffuse free fluid throughout abdomen. 1221: A review of the patient's chart makes it very clear that he is not interested in treatment of his aortic aneurysm. 1222: I discussed the patient's case with his family. They agree that the patient has made it clear to them and his PCP that he would not want to be intubated. However, the patient's family would like to consider intubation if it is only for a short while. 1317: I reassessed the patient. He is awake and answering all questions. He is also requesting a meal tray. Upon reexamination, the patient has a questionable left lower lip droop though this appears to be secondary to the mask he is wearing because it is overcome by voluntary muscles. The patient has no weakness of his arms or legs. He does not have any other neurological deficits and does not remember what happened. 1420: Discussed the patient's case with Dr. Adiel Coker [facility] [place]. The patient will be evaluated for further treatment and disposition. 1422: Upon reevaluation, the patient is resting comfortably. Discussed results and treatment plan with the patient and his family. They verbalized understanding and agreement with the treatment plan. The patient will be evaluated for further management. Medical Decision Differential: Toxicological, Infectious, Stroke, SAH, Trauma, Electrolyte Abnormality, Hypoglycemia, Alcohol Intoxication, Drug Intoxication, Cardiac Abnormality, Sepsis, Meningitis/Encephalitis, Trauma, Excited Delirium, Serotonin Syndrome, Psychiatric, amongst other pathologies entertained. 86 yr old male arrives via ems for episode of unresponsiveness. EMS notes hypotensive, hypoxic, unresponsive on their arrival. BP and oxygenation improved by arrival though essentially unresponsive. Bedside US with diffuse free fluid. Known thoracic aneurysm. Recent heavy GI bleed. Chronic renal insufficiency and thrombocytopenia. He is in no way a candidate thus in this case stroke alert not called. DNR (per pt paperwork and Dr Cook). Immediately sent to CT for head/chest/abdo without any acute things found. Labwork with similar results to that from several months ago. EKG without stemi. Initial trop negative. After 45 min in department patient began awakening and responding. Answering all questions and stable. Given prolonged unresponsive without acute findings will need to come in for further work-up and evaluation. No clear infectious etiology. Doesn't appear to have meningitis but regardless I do not feel that LP would be safe. Consults Time Called: 1210 Consulting Physician: Dr. Cook - Family Medicine Returned Call: [phone] Discussed the patient's case with Dr. Joey Coker [facility]. He confirms that the patient is DNI and DNR. He adds that the patient was discharged from [facility] recently for a GI bleed. He was intubated there and made it clear that he does not want intubation again. Additional Consults: Time Called: 1341 Consulted Physician: Dr. Adiel HANNA Returned Call: [phone] Additional Comments: Discussed the patient's case with Dr. Adiel HANNA. The patient will be evaluated for further treatment and disposition. Impression Primary Impression: Altered mental status Additional Impressions: Hypotension Hypoxia Critical Care I have personally spent greater than 35 minutes of critical care time in the direct management of this patient. This was a life/limb threatening event. This includes time spent evaluating patient, direct bedside care, chart review, placing orders, interpretation of diagnostic studies, discussion with consultants, patient, and family members, as well as other required patient management activities. This 35 minutes is in excess of all separately billable procedures. Scribe Attestation The scribe's documentation has been prepared under my direction and personally reviewed by me in its entirety. I confirm that the note above accurately reflects all work, treatment, procedures, and medical decision making performed by me. Departure Information Dispostion Being Evaluated By Hospitalist Referrals Vikas Cook M.D. (PCP) Stroke History Time Last Known Well 2 hours EMBEDDED SOFTWARE ARCHITECT Stroke t-PA Criteria Reviewed Does NOT meet criteria for t-PA Reason t-PA Not Given Treatment provided - N/A (Patient had massive hemorrhage within the last few months, so not a candidate for t-PA) Problem Qualifiers Primary Impression: Altered mental status Altered mental status type: unspecified Qualified Codes: R41.82 - Altered mental status, unspecified Additional Impressions: Hypotension Hypotension type: unspecified hypotension type Qualified Codes: I95.9 - Hypotension, unspecified
[2017-02-21 16:34] VITALS: O2SAT 100
[2017-02-21 16:36] LABS: URINE APPEARANCE CLEAR (CLEAR); URINE BILIRUBIN NEG (NEG); URINE COLOR YELLOW; URINE EPITHELIAL CELL AUTO 0-5 /lpf (0-5); URINE NITRITE NEG (NEG); URINE SPECIFIC GRAVITY 1.011 (1.000-1.030); UROBILINOGEN NEG (NEG); ZZUR CULT IF INDIC CLEAN CATCH NO
[2017-02-21 16:40] LABS: MANUAL MICROSCOPIC REQUIRED? NO; REVIEW REQ? NO
[2017-02-21 18:22] VITALS: Ht 175.3 cm; Wt 73.8 kg
[2017-02-21 19:49] VITALS: BP 85/55; PULSE 64; TEMP 36.6; O2SAT 99
[2017-02-21] MEDS: SODIUM CHLORIDE 0.9% 1000ML 1,000 ML IV SCH (20:18)
--- NOTE | 2017-02-21 20:26 | DIAGNOSTIC IMAGING REPORT ---
Brain MRI WITHOUT CONTRAST HISTORY: Mental status change Encephalopathy TECHNIQUE: Multiplanar multisequence MRI of the brain was performed without the use of contrast. COMPARISON STUDY: None. FINDINGS: Limited study due to the patient's ability to cooperate. Diffusion-weighted images show no evidence for a small remainder the study shows evidence for generalized atrophy and considerable chronic small vessel change. There is mild compensatory prominence of the ventricular system. There is no evidence of midline shift. Acute/subacute infarct anterior right thalamus. IMPRESSION: Small acute/subacute infarct anterior right thalamus. Generalized atrophy. Electronically signed by: Jim Rutherford M.D. 02/21/2017 8:23 PM Dictated Date/Time: 02/21/2017 8:21 PM
[2017-02-21 21:26] VITALS: BP 80/55; PULSE 95; O2SAT 100
[2017-02-21 23:17] VITALS: BP 96/59; PULSE 57; TEMP 36.5; O2SAT 95
[2017-02-22 04:00] VITALS: BP 102/65; PULSE 56; TEMP 36.9; O2SAT 98
[2017-02-22] MEDS: SODIUM CHLORIDE 0.9% 1000ML 1,000 ML IV SCH ×2 (06:28→11:49)
[2017-02-22 07:26] VITALS: BP 104/65; PULSE 64; TEMP 36.5; O2SAT 98
[2017-02-22 08:05] LABS: HEMATOCRIT 33.6 % (42-52); MEAN CELL VOLUME 94.1 fL (80-100); RED BLOOD COUNT 3.57 M/uL (4.7-6.1); WHITE BLOOD COUNT 4.26 K/uL (4.8-10.8)
[2017-02-22 08:14] LABS: INR 1.2 (0.9-1.1)
[2017-02-22 08:19] LABS: BASO % 0.2 %; BASO ABS # 0.01 K/uL (0-0.2); COMPLETE YES; EOS % 1.9 %; IG% 0.2 %; LYMPH % 24.6 %; LYMPH ABS # 1.05 K/uL (1.2-3.4); MEAN CORPUSCULAR HGB CONC 31.8 g/dl (32-36); MEAN PLATELET VOLUME 10.8 fL (7.4-10.4); MONO % 10.1 %; PLATELET COUNT 78 K/uL (130-400)
[2017-02-22 08:37] LABS: BUN/CREATININE RATIO 29.8 (10-20); CALCIUM 9.5 mg/dl (8.5-10.1); CREATININE 1.9 mg/dl (0.60-1.40); POTASSIUM 4.9 mmol/L (3.5-5.1)
--- NOTE | 2017-02-22 08:58 | Clinical Documentation Query ---
See documentation - patient had a massive LGI bleed on just an 81mg aspirin. This is documented in his notes as to why we're not using antithrombotic. Tried to make it clear in the notes, but please let me know if it's not as obviously documented as I thought. Please Document One of the Following Exceptions: Stroke NOT MET - Antithrombotic by end of Day 2 * Less than 18 years of age * LOS < 2 days or > 120 days * Comfort Measures Only documented by Physician/SUSTAINABILITY ENGINEER/PA on day of or after arrival * Enrolled in clinical trials * Admitted for Elective Carotid Intervention * Discharged before end of day 2 * Patients with IV OR IA Thrombolytic (t-PA) Therapy Administered at This Hospital or Within 24 Hours Prior to Arrival * Documented reason for Not giving antithrombolytic by end of Day 2 Thank You, Yoseph Li, RN [phone]
[2017-02-22 10:07] LABS: MANUAL MICROSCOPIC REQUIRED? YES; REVIEW REQ? NO; URINE APPEARANCE CLOUDY (CLEAR); URINE BILIRUBIN NEG (NEG); URINE COLOR RED; URINE NITRITE NEG (NEG); UROBILINOGEN NEG (NEG)
[2017-02-22 10:29] LABS: URINE RBC >30 /hpf (0-4)
[2017-02-22 10:30] LABS: URINE BACTERIA NEG (NEG); URINE WBC >30 /hpf (0-5)
[2017-02-22 11:23] VITALS: BP 113/67; PULSE 63; TEMP 36.5; O2SAT 98
--- NOTE | 2017-02-22 13:01 | Family Medicine Progress Note ---
Progress Note Date of Service Feb 22, 2017. Subjective Pt evaluation today including: conversation w/ patient, physical exam, chart review, lab review, review of studies, review of inpatient medication list Voiding: no voiding problems (hematuria noted), no incontinence Mr Lanza feels back to his baseline this morning when seen. Does not remember anything about unresponsive episode. He reports no change in his vision, speech , hearing, extremity weakness or sensation. He does have chronic peripheral neuropathy mainly in his toes but also in finger tips b/l. All Other Systems: Reviewed and Negative Medications Current Inpatient Medications Medications (Trade) Dose Ordered Sig/Jossie Route Start Time Stop Time Status Last Admin Dose Admin Sodium Chloride (Nss 1000ml) 1,000 ml @ 100 mls/hr Q10H IV 02/21/17 15:04 03/23/17 15:03 02/22/17 11:49 100 MLS/HR Ondansetron HCl 4 mg 4 mg Q6H PRN IV 02/21/17 15:15 03/23/17 15:14 Acetaminophen/ Empty Bag (Ofirmev Iv/ Empty Iv Bag 100ml) 65 ml @ 260 mls/hr Q6H PRN IV 02/21/17 15:15 03/23/17 15:14 Objective Vital Signs Date Time Temp Pulse Resp B/P Pulse Ox O2 Delivery O2 Flow Rate FiO2 02/22/17 11:23 36.5 63 18 113/67 98 Room Air 02/22/17 07:26 36.5 64 20 104/65 98 Room Air 02/22/17 04:48 Room Air 02/22/17 04:00 36.9 56 18 102/65 98 Room Air 02/22/17 00:01 Room Air 02/21/17 23:17 36.5 57 18 96/59 95 Nasal Cannula 2.0 02/21/17 21:26 95 22 80/55 100 Nasal Cannula 2.0 02/21/17 20:00 Nasal Cannula 2.0 02/21/17 19:49 36.6 64 18 85/55 99 Nasal Cannula 4.0 02/21/17 18:36 Nasal Cannula 2.0 02/21/17 16:34 59 20 122/76 100 02/21/17 16:27 59 20 122/76 100 Nasal Cannula 4.0 02/21/17 15:40 52 20 102/56 100 Nasal Cannula 4.0 02/21/17 13:31 56 24 115/74 Nasal Cannula 4.0 02/21/17 13:16 66 18 123/75 98 Diffusion Mask 10.0 Physical Exam General Appearance: WD/WN, no apparent distress Eyes: normal inspection, PERRL, EOMI ENT: hearing grossly normal, + pertinent finding (geographic tongue noted, moist mucus membranes) Neck: supple, + JVD Respiratory/Chest: lungs clear, normal breath sounds, no respiratory distress, no accessory muscle use Cardiovascular: no murmur, + irregularly irregular Abdomen: normal bowel sounds, non tender, soft Extremities: no pedal edema, no calf tenderness 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 as tested (no facial droop/numbness, TPZ and SCM intact, tongue movements intact, uvula central), no motor/sensory deficits (MRC 5/5 in upper and lower extremity b/l), alert, normal mood/affect, oriented x 3 Skin: normal color, warm/dry, no rash Laboratory Results 02/22/17 07:57 Red Blood Count 3.57, Mean Corpuscular Volume 94.1, Mean Corpuscular Hemoglobin 30.0, Mean Corpuscular Hemoglobin Concent 31.8, Mean Platelet Volume 10.8, Neutrophils (%) (Auto) 63.0, Lymphocytes (%) (Auto) 24.6, Monocytes (%) (Auto) 10.1, Eosinophils (%) (Auto) 1.9, Basophils (%) (Auto) 0.2, Neutrophils # (Auto ) 2.68, Lymphocytes # (Auto) 1.05, Monocytes # (Auto) 0.43, Eosinophils # (Auto ) 0.08, Basophils # (Auto) 0.01 02/22/17 07:57 Test 02/21/17 12:49 02/21/17 12:55 02/21/17 14:10 02/22/17 05:25 Ovalocytes 2+ Activated Partial Thromboplast Time 26.8 SECONDS (21.0-31.0) Partial Thromboplastin Ratio 1.0 Direct Bilirubin 0.2 mg/dl (0-0.2) Bedside Hemoglobin 11.6 g/dl (14.0-18.0) Bedside Hematocrit 34 % (42-52) Bedside Sodium 140 mEq/L (135-144) Bedside Potassium 5.1 mEq/L (3.3-5.0) Bedside Chloride 102 mEq/L (101-112) Bedside Total CO2 26 mEq/l (24-31) Bedside Blood Urea Nitrogen 52 mg/dl (7-18) Bedside Creatinine 2.0 mg/dl (0.6-1.3) Bedside Glucose (other) 112 mg/dl (70-99) Bedside Ionized Calcium ([place]ilar) 1.24 mmol/l (1.12-1.32) Urine WBC (Auto) 1-5 /hpf (0-5) Urine RBC (Auto) >30 /hpf (0-4) Urine Hyaline Casts (Auto) 0 /lpf (0-5) Urine Epithelial Cells (Auto) 0-5 /lpf (0-5) Urine Bacteria (Auto) NEG (NEG) Troponin I 0.024 ng/ml (0-0.045) Test 02/22/17 07:27 02/22/17 07:57 02/22/17 09:30 Bedside Glucose 138 mg/dl (70-99) White Blood Count 4.26 K/uL (4.8-10.8) Red Blood Count 3.57 M/uL (4.7-6.1) Hemoglobin 10.7 g/dL (14.0-18.0) Hematocrit 33.6 % (42-52) Mean Corpuscular Volume 94.1 fL (80-100) Mean Corpuscular Hemoglobin 30.0 pg (25-34) Mean Corpuscular Hemoglobin Concent 31.8 g/dl (32-36) Platelet Count 78 K/uL (130-400) Mean Platelet Volume 10.8 fL (7.4-10.4) Neutrophils (%) (Auto) 63.0 % Lymphocytes (%) (Auto) 24.6 % Monocytes (%) (Auto) 10.1 % Eosinophils (%) (Auto) 1.9 % Basophils (%) (Auto) 0.2 % Neutrophils # (Auto) 2.68 K/uL (1.4-6.5) Lymphocytes # (Auto) 1.05 K/uL (1.2-3.4) Monocytes # (Auto) 0.43 K/uL (0.11-0.59) Eosinophils # (Auto) 0.08 K/uL (0-0.5) Basophils # (Auto) 0.01 K/uL (0-0.2) RDW Standard Deviation 55.7 fL (36.4-46.3) RDW Coefficient of Variation 16.0 % (11.5-14.5) Immature Granulocyte % (Auto) 0.2 % Immature Granulocyte # (Auto) 0.01 K/uL (0.00-0.02) Prothrombin Time 13.0 SECONDS (9.0-12.0) Prothromb Time International Ratio 1.2 (0.9-1.1) Anion Gap 5.0 mmol/L (3-11) Est Creatinine Clear Calc Drug Dose 26.9 ml/min Estimated GFR () 35.7 Estimated GFR (Non- 30.8 BUN/Creatinine Ratio 29.8 (10-20) Calcium Level 9.5 mg/dl (8.5-10.1) Total Bilirubin 0.5 mg/dl (0.2-1) Aspartate Amino Transf (AST/SGOT) 30 U/L (15-37) Alanine Aminotransferase (ALT/SGPT) 28 U/L (12-78) Alkaline Phosphatase 151 U/L (45-117) Ammonia 15.0 umol/L (11-32) Total Protein 7.8 gm/dl (6.4-8.2) Albumin 3.8 gm/dl (3.4-5.0) Globulin 4.0 gm/dl (2.5-4.0) Albumin/Globulin Ratio 1.0 (0.9-2) Urine Color RED Urine Appearance CLOUDY (CLEAR) Urine pH 6.0 (4.5-7.5) Urine Specific [place] 1.020 (1.000-1.030) Urine Protein 2+ (NEG) Urine Glucose (UA) NEG (NEG) Urine Ketones NEG (NEG) Urine Occult Blood 3+ (NEG) Urine Nitrite NEG (NEG) Urine Bilirubin NEG (NEG) Urine Urobilinogen NEG (NEG) Urine Leukocyte Esterase NEG (NEG) Urine RBC >30 /hpf (0-4) Urine WBC >30 /hpf (0-5) Urine Epithelial Cells 5-10 /lpf (0-5) Urine Bacteria NEG (NEG) Assessment and Plan 86 yo with multiple co-morbidities presents with unresponsive episode, tachycardia and hypotension from [place]. Unresponsive episode secondary to hypotension likely iatrogenic - We will but back on his lasix today 40->20mg. Hold off on metoprolol unless he becomes tachycardic. Hold off spironolactone (taking for ascites). - Hold other potentially sedating medications; gabapentin, opiates, benzos - orthostatics QS Subacute stroke on MRI - likely incidental, appears asymptomatic from this on examination. No real options for treatment. Due to chronic atrial fibrillation - He is not for aspirin or anticoagulation due to severe life threatening GI bleeds (only was on aspirin at this time). Hypertension control as above ( currently is hypotensive with an episode outside hospital that brought him in and one last night). 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 d/c fluids due to aortic stenosis, UO adequate Gross hematuria - will check previous notes. Consider heme referral if ongoing. Consider vitamin K (although has potential to make CVA worse). Infrarenal aortic aneurysm - stable according to prior scans, certainly with multiple comorbidities he is too high risk for intervention Aortic stenosis - severe on echo in 2016 with EF 50-55% Chronic pain - follows with pain clinic, prescribed Neurontin and Percocet PRN, could be playing role in somnolence - holding both due to unresponsive episode Atrial fibrillation - rates controlled, typically takes metoprolol but will hold due to unresponsive hypotensive episode Liver cirrhosis - evident with thrombocytopenia, INR 1.[address] scan - typically takes Lasix and Spironolactone. Will hold spironolactone given hypotensive episodes and restart lower dose of lasix @ 20 mg today - stop statin, CVAs likely embolic from atrial fibrillation rather than atherosclerotic disease VTE Prophylaxis - falls risk with SCDs and TEDs therefore not for these - Thrombocytopenia and recent lifethretening GI bleed make chemical prophylaxis contraindicated Disposition - PT, OT, discharge planning. Will probably require a few days in hospital to stabilize BP and orthostatic risk. Then will likely need rehab placement Resident Physician Supervision Note: I interviewed and examined the patient. Discussed with Dr. Lea and agree with findings and plan as documented in the note. Any exceptions or clarifications are listed here: None Documented By: Kevin Razo feeling better, doesn't seem to remember much of yesterday's events. does remember me from prior stays, and reviews his last GI bleed stay with accuracy. ros otherwise negative except for as above vitals noted nad breathing unlabored, sitting in chair, no pallor or icterus MRI noted a/p unresponsive - appearing most likely due to small stroke (due to no other significant pathology being present) -- as he is not a candidate for tPA, anticoagulation, or even antiplatelet (his october GI bleed led to the better part of 30 units transfusion per him (and documented 13 units here prior to transfer to tertiary care)) - therefore secondary risk reduction all will be lipids, BP, sugar management - all parameters reviewed and are at goal for risk. continue to follow clinically hematuria - not appearing infected. send culture for completeness. no sx c/w stone. will have to review w pt and review outpt charts regarding ?any prior urology eval - if not then will need to refer as outpt (or if progressively worsens then as inpt) Resident Tracking Resident Involvement: Resident Care Provided Care Provided: Adult Hospital Medicine
[2017-02-22] MEDS ORDERED: FUROSEMIDE 40 MG TAB PO ONE (13:30)
[2017-02-22] MEDS ORDERED: NURSING VERBAL MED ORDER ONE (14:45)
[2017-02-22 15:38] VITALS: BP 111/70; PULSE 82; TEMP 37.2; O2SAT 94
[2017-02-22 19:21] VITALS: BP 136/81; PULSE 84; TEMP 36.9; O2SAT 97
[2017-02-22] MEDS ORDERED: TRAZODONE HCL 50 MG TAB PO SCH (21:00)
[2017-02-22] MEDS: PANTOprazole SOD 40 MG TAB PO SCH (21:54)
[2017-02-22] MEDS: ACETAMINOPHEN 325 MG TAB PO PRN (21:58)
[2017-02-23 00:28] VITALS: BP 119/74; PULSE 95; TEMP 36.5; O2SAT 94
--- NOTE | 2017-02-23 05:34 | Clinical Documentation Query ---
CLINICAL DOCUMENTATION QUERY 86 year old male who presents to the Emergency Room with complaints of sudden altered mental status manifested by unresponsiveness and lethargy. Encephalopathy was well documented at time of admission but has fallen off the record. Patient is being diagnosed with iatrogenic hypotension and stroke. (X) Encephalopathy in setting of iatrogenic hypotension treated and resolved ( ) Encephalopathy ruled out Please clarify and document your clinical opinion in the progress notes and discharge summary. Terms such as "probable", "suspected", "likely", "questionable", "possible", or "still to be ruled out" are acceptable. IF IN AGREEMENT, YOU MUST DOCUMENT ABOVE DIAGNOSTIC STATEMENT IN DAILY PROGRESS NOTES AND DISCHARGE SUMMARY. This document is not part of the patient's record. Thank You, Yoseph Li RN [phone]
[2017-02-23 08:00] VITALS: BP 120/76; PULSE 94; TEMP 36.6; O2SAT 95
[2017-02-23] MEDS ORDERED: ALLOPURINOL 100 MG TAB PO SCH (08:00)
[2017-02-23] MEDS ORDERED: FUROSEMIDE 40 MG TAB PO SCH (08:00)
[2017-02-23] MEDS ORDERED: CYANOCOBALAMIN 500 MCG TAB (VIT B-12) PO SCH (08:00)
[2017-02-23] MEDS ORDERED: FERROUS SULFATE 325 MG TAB PO SCH (08:00)
[2017-02-23] MEDS ORDERED: CHOLECALCIFEROL 1000 INTER.UNIT TAB PO SCH (08:00)
[2017-02-23] MEDS ORDERED: FINASTERIDE 5 MG TAB PO SCH (08:00)
[2017-02-23] MEDS ORDERED: PYRIDOXINE HCL 50 MG TAB PO SCH (08:00)
[2017-02-23 08:14] LABS: HEMATOCRIT 30.9 % (42-52); MEAN CELL VOLUME 93.6 fL (80-100); WHITE BLOOD COUNT 3.49 K/uL (4.8-10.8)
[2017-02-23] MEDS: PANTOprazole SOD 40 MG TAB PO SCH (08:20)
[2017-02-23 08:21] LABS: ESTIMATED AVERAGE GLUCOSE 140 mg/dl; HA1C FLAG Normal (Normal)
[2017-02-23 08:23] LABS: INR 1.3 (0.9-1.1); PARTIAL THROMBOPLASTIN RATIO 1.1; PROTHROMBIN TIME (PATIENT) 13.8 SECONDS (9.0-12.0)
[2017-02-23] MEDS: ACETAMINOPHEN 325 MG TAB PO PRN (08:23)
[2017-02-23 08:26] LABS: BASO % 0.3 %; BASO ABS # 0.01 K/uL (0-0.2); COMPLETE YES; EOS % 2.3 %; LYMPH % 20.3 %; LYMPH ABS # 0.71 K/uL (1.2-3.4); MEAN PLATELET VOLUME 11.3 fL (7.4-10.4); MONO % 11.7 %; NEUT % 65.4 %; PLATELET COUNT 81 K/uL (130-400)
[2017-02-23 08:46] LABS: BUN/CREATININE RATIO 30.6 (10-20); CHOLESTEROL/HDL RATIO 2.2; CREATININE 1.6 mg/dl (0.60-1.40); POTASSIUM 4.6 mmol/L (3.5-5.1)
[2017-02-23 08:56] LABS: CALCIUM 8.8 mg/dl (8.5-10.1)
[2017-02-23] MEDS ORDERED: ATORVASTATIN 40 MG TAB PO SCH (09:00)
[2017-02-23] MEDS ORDERED: NON-FORMULARY MEDICATION (Coenzyme Q10 (Ubidecarenone) (Coq10) 100 MG) PO SCH (09:00)
--- NOTE | 2017-02-23 10:11 | Family Medicine Progress Note ---
Progress Note Date of Service Feb 23, 2017. Medications Current Inpatient Medications Medications (Trade) Dose Ordered Sig/Jossie Route Start Time Stop Time Status Last Admin Dose Admin Ondansetron HCl 4 mg 4 mg Q6H PRN IV 02/21/17 15:15 03/23/17 15:14 Acetaminophen/ Empty Bag (Ofirmev Iv/ Empty Iv Bag 100ml) 65 ml @ 260 mls/hr Q6H PRN IV 02/21/17 15:15 03/23/17 15:14 Acetaminophen (Tylenol Tab) 650 mg Q4H PRN PO 02/22/17 12:45 03/24/17 12:44 02/23/17 08:23 650 MG Allopurinol (Zyloprim Tab) 100 mg QAM PO 02/23/17 08:00 03/25/17 08:59 02/23/17 08:18 100 MG Finasteride (Proscar Tab) 5 mg QAM PO 02/23/17 08:00 03/25/17 08:59 02/23/17 08:20 5 MG Furosemide (Lasix Tab) 40 mg DAILY PO 02/23/17 08:00 03/25/17 08:59 02/23/17 08:19 40 MG Pyridoxine HCl (Vitamin B-6 Tab) 100 mg QAM PO 02/23/17 08:00 03/25/17 08:59 02/23/17 08:19 100 MG Trazodone HCl (Desyrel Tab) 50 mg HS PO 02/22/17 21:00 03/24/17 20:59 02/22/17 21:54 50 MG Cholecalciferol (Vitamin D Tab) 2,000 inter.unit QAM PO 02/23/17 08:00 03/25/17 08:59 02/23/17 08:20 2,000 INTER.UNIT Cyanocobalamin (Vitamin B-12 Tab) 1,000 mcg QAM PO 02/23/17 08:00 03/25/17 08:59 02/23/17 08:19 1,000 MCG Ferrous Sulfate (Feosol Tab) 325 mg QAM PO 02/23/17 08:00 03/25/17 08:59 02/23/17 08:19 325 MG Pantoprazole Sodium (Protonix Tab) 40 mg BID PO 02/22/17 20:00 03/24/17 20:59 02/23/17 08:20 40 MG Objective Vital Signs Date Time Temp Pulse Resp B/P Pulse Ox O2 Delivery O2 Flow Rate FiO2 02/23/17 08:00 36.6 94 20 120/76 95 Room Air 02/23/17 00:28 36.5 95 20 119/74 94 Room Air 02/23/17 00:00 Room Air 02/22/17 19:21 36.9 84 17 136/81 97 Room Air 02/22/17 16:00 Room Air 02/22/17 15:38 37.2 82 19 111/70 94 Room Air 02/22/17 12:00 Room Air 02/22/17 11:23 36.5 63 18 113/67 98 Room Air Laboratory Results 02/23/17 08:01 Red Blood Count 3.30, Mean Corpuscular Volume 93.6, Mean Corpuscular Hemoglobin 30.0, Mean Corpuscular Hemoglobin Concent 32.0, Mean Platelet Volume 11.3, Neutrophils (%) (Auto) 65.4, Lymphocytes (%) (Auto) 20.3, Monocytes (%) (Auto) 11.7, Eosinophils (%) (Auto) 2.3, Basophils (%) (Auto) 0.3, Neutrophils # (Auto ) 2.28, Lymphocytes # (Auto) 0.71, Monocytes # (Auto) 0.41, Eosinophils # (Auto ) 0.08, Basophils # (Auto) 0.01 02/23/17 08:01 Test 02/22/17 19:59 02/23/17 08:01 Bedside Glucose 125 mg/dl (70-99) White Blood Count 3.49 K/uL (4.8-10.8) Red Blood Count 3.30 M/uL (4.7-6.1) Hemoglobin 9.9 g/dL (14.0-18.0) Hematocrit 30.9 % (42-52) Mean Corpuscular Volume 93.6 fL (80-100) Mean Corpuscular Hemoglobin 30.0 pg (25-34) Mean Corpuscular Hemoglobin Concent 32.0 g/dl (32-36) Platelet Count 81 K/uL (130-400) Mean Platelet Volume 11.3 fL (7.4-10.4) Neutrophils (%) (Auto) 65.4 % Lymphocytes (%) (Auto) 20.3 % Monocytes (%) (Auto) 11.7 % Eosinophils (%) (Auto) 2.3 % Basophils (%) (Auto) 0.3 % Neutrophils # (Auto) 2.28 K/uL (1.4-6.5) Lymphocytes # (Auto) 0.71 K/uL (1.2-3.4) Monocytes # (Auto) 0.41 K/uL (0.11-0.59) Eosinophils # (Auto) 0.08 K/uL (0-0.5) Basophils # (Auto) 0.01 K/uL (0-0.2) RDW Standard Deviation 55.2 fL (36.4-46.3) RDW Coefficient of Variation 16.1 % (11.5-14.5) Immature Granulocyte % (Auto) 0.0 % Immature Granulocyte # (Auto) 0.00 K/uL (0.00-0.02) Prothrombin Time 13.8 SECONDS (9.0-12.0) Prothromb Time International Ratio 1.3 (0.9-1.1) Activated Partial Thromboplast Time 27.7 SECONDS (21.0-31.0) Partial Thromboplastin Ratio 1.1 Anion Gap 5.0 mmol/L (3-11) Est Creatinine Clear Calc Drug Dose 31.9 ml/min Estimated GFR () 43.9 Estimated GFR (Non- 37.9 BUN/Creatinine Ratio 30.6 (10-20) Estimated Average Glucose 140 mg/dl Hemoglobin A1c 6.5 % (4.5-5.6) Calcium Level 8.8 mg/dl (8.5-10.1) Iron Level 54 mcg/dl (35-175) Total Iron Binding Capacity 323 mcg/dl (250-450) Ferritin 113.0 ng/ml (8.0-388.0) Total Bilirubin 0.7 mg/dl (0.2-1) Aspartate Amino Transf (AST/SGOT) 29 U/L (15-37) Alanine Aminotransferase (ALT/SGPT) 25 U/L (12-78) Alkaline Phosphatase 124 U/L (45-117) Total Protein 7.1 gm/dl (6.4-8.2) Albumin 3.5 gm/dl (3.4-5.0) Globulin 3.6 gm/dl (2.5-4.0) Albumin/Globulin Ratio 1.0 (0.9-2) Triglycerides Level 54 mg/dl (0-150) Cholesterol Level 82 mg/dl (0-200) HDL Cholesterol 38 mg/dl LDL Cholesterol, Calculated 33 mg/dl VLDL Cholesterol, Calculated 11 mg/dl Cholesterol/HDL Ratio 2.2 Assessment and Plan DRAFT Resident Tracking Resident Involvement: Resident Care Provided Care Provided: Adult [facility] Medicine
[2017-02-23 10:47] LABS: OVALOCYTES 2+; TEAR DROP CELLS 1+
--- NOTE | 2017-02-23 11:33 | Discharge Instructions ---
Discharge Instructions Date of Service Feb 23, 2017. Admission Reason for Admission: Altered Mental Status Discharge Discharge Diagnosis / Problem: Encephalopathy in the setting of iatrogenic hypotension Discharge Goals Goal(s): Improve function Activity Recommendations Activity Limitations: resume your previous activity (take it slowly when getting up, make sure you are not too dizzy) . Instructions / Follow-Up Instructions / Follow-Up You were diagnosed with an unresponsive episodes related to hypotension due to medications. We have stopped your spironolactone. Please continue to take the metoprolol and furosemide as prescribed. Other sedating medications have also been discontinued but may be considered restarting as long as you remain well such as gabapentin, zolpidem and Percocet. We recommend follow up in pain clinic regarding these medications. In order to obtain a urine sample a straight cath was performed while in the ER. You have had hematuria since then. As this is improving, there is no signs of you becoming more anemic from this, the post void residual was 90ml and this is a known previous problem we will investigate this further as an outpatient. It is likely traumatic related with concurrent known longstanding problems of low platelets and mildly elevated INR. Of note an MRI was done as part of your overall workup. This showed a acute/ subacute stroke in the right thalamus. You appear asymptomatic from this and back at your baseline. This is not thought to be the cause of your current admission and unresponsive episode. Unfortunately given your history of life threatening GI bleed (on aspirin) and current hematuria (on no blood thinners) anticoagulation is contraindicated despite your atrial fibrillation. Given cholesterol panel was excellent, stroke was mostly embolic rather than atherosclerotic and concurrent liver cirrhosis and advanced age we recommend stopping the statin but this should be discussed further with your PCP. Please have repeat H&H and BMP on Sunday to check the hematuria is not making you anemic and potassium is normal (as stopping spironolactone). We will arrange a follow up appointment with urology for next week regarding the hematuria. Current Hospital Diet Patient's current hospital diet: AHA Diet (Heart Healthy) Discharge Diet Recommended Diet: AHA Diet (Heart Healthy), Low Sodium Diet (2gm Na) Pending Studies Studies pending at discharge: no Laboratory Results Hemoglobin A1c Test 02/23/17 08:01 Range/Units Estimated Average Glucose 140 mg/dl Hemoglobin A1c 6.5 H 4.5-5.6 % Lipid Panel Test 02/23/17 08:01 Range/Units Triglycerides Level 54 0-150 mg/dl Cholesterol Level 82 0-200 mg/dl HDL Cholesterol 38 mg/dl Cholesterol/HDL Ratio 2.2 LDL Cholesterol, Calculated 33 mg/dl Medical Emergencies . Who to Call and When: Medical Emergencies: If at any time you feel your situation is an emergency, please call 911 immediately. . Non-Emergent Contact Non-Emergency issues call your: Primary Care Provider Call Non-Emergent contact if: you have a fever, your pain is not controlled . . "Provider Documentation" section prepared by Jay Lea. . VTE Core Measure Inpt VTE Proph given/why not?: Contraindicated (hematuria and GI bleed) Resident Tracking Resident Involvement: Resident Care Provided Care Provided: Adult Hospital Medicine
[2017-02-23] MEDS ORDERED: PRLSR20 PO (11:41)
[2017-02-23] MEDS ORDERED: METOPROLOL SUCC 25MG EXT REL TAB PO ONE (12:30)
--- NOTE | 2017-02-23 13:04 | Discharge Instructions ---
Discharge Instructions Date of Service Feb 23, 2017. Admission Reason for Admission: Altered Mental Status Activity Recommendations . Current Hospital Diet Patient's current hospital diet: AHA Diet (Heart Healthy) Laboratory Results Hemoglobin A1c Test 02/23/17 08:01 Range/Units Estimated Average Glucose 140 mg/dl Hemoglobin A1c 6.5 H 4.5-5.6 % Lipid Panel Test 02/23/17 08:01 Range/Units Triglycerides Level 54 0-150 mg/dl Cholesterol Level 82 0-200 mg/dl HDL Cholesterol 38 mg/dl Cholesterol/HDL Ratio 2.2 LDL Cholesterol, Calculated 33 mg/dl Medical Emergencies . Who to Call and When: Medical Emergencies: If at any time you feel your situation is an emergency, please call 911 immediately. . Non-Emergent Contact . . "Provider Documentation" section prepared by Jay Lea. . VTE Core Measure Inpt VTE Proph given/why not?: Contraindicated (hematuria and GI bleed)
[2017-02-23 13:38] VITALS: BP 120/76; PULSE 94; TEMP 36.6; O2SAT 95
[2017-02-24] MEDS ORDERED: METOPROLOL SUCC 25MG EXT REL TAB PO SCH (08:00)
--- NOTE | 2017-02-24 18:04 | Progress Note ---
Progress Note Date of Service Feb 23, 2017. Progress Note please see Dr Lea R2's full dc summary for further details feeling better really wants to return to SNF no complaints, ros otherwise negative except for as above vitals noted nad breathing unlabored no pallor or icterus altered mental status likely due to low BP - BP meds reduced, doing better, continue to folllow up as outpt CVA - no benefit from inpt neuro consult due to known modified risks and absolute inability to even use asa 81mg (bled ~30units LGI bleed w asa late last year, prior LGI bleeds on coumadin) stable for return to SNF
[2017-02-26] MEDS ORDERED: RXC5 PO (20:06)
--- NOTE | 2017-03-04 22:48 | Discharge Summary ---
Discharge Summary Date of Service Feb 23, 2017. Discharge Summary Admission Date: Feb 21, 2017 at 15:11 Discharge Date: Feb 23, 2017 Principal Diagnosis: Unresponsive episode secondary to hypotension/sedating medication Problems/Secondary Diagnoses: Subacute stroke on MRI - likely incidental, appears asymptomatic from this on examination. No real options for treatment. Due to chronic atrial fibrillation - He is not for aspirin or anticoagulation due to severe life threatening GI bleeds (only was on aspirin at this time). Hypertension control as above ( currently is hypotensive with an episode outside hospital that brought him in and one last night). 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 UO adequate Gross hematuria - patient reports chronic. Consider heme referral if ongoing. Consider vitamin K (although has potential to make CVA worse). Infrarenal aortic aneurysm - stable according to prior scans, certainly with multiple comorbidities he is too high risk for intervention Aortic stenosis - severe on echo in 2016 with EF 50-55% Chronic pain - follows with pain clinic, prescribed Neurontin and Percocet PRN, could be playing role in somnolence Atrial fibrillation - rate controlled on metoprolol Liver cirrhosis - evident with thrombocytopenia, INR 1.[address] scan - typically takes Lasix and Spironolactone. Will hold spironolactone given hypotensive episodes and restart lower dose of lasix @ 20 mg today - stop statin, CVAs likely embolic from atrial fibrillation rather than atherosclerotic disease Medication Reconciliation Changed Medications: Omeprazole (Prilosec) 20 Mg Capcr 20 MG PO BID for 30 Days, #60 CAP (Changed from: DAILY) Continued Medications: Acetaminophen Tab (Tylenol) 325 Mg Tab 650 MG PO Q4H PRN for RN, TAB Allopurinol (Allopurinol) 100 Mg Tab 100 MG PO QAM Ascorbic Acid (Vitamin C) 500 Mg Cap 500 MG PO QAM Cholecalciferol (Vitamin D) 2,000 Unit Tab 2000 UNIT PO QAM Coenzyme Q10 (Ubidecarenone) (Coq10) 100 Mg Cap 100 MG PO QAM Cyanocobalamin (Vitamin B12) 1,000 Mcg Tab 1000 MCG PO QAM Ferrous Sulfate (Kp Ferrous Sulfate) 325 Mg Tab 325 MG PO BID for anemia, TAB Finasteride (Proscar) 5 Mg Tab 5 MG PO QAM, TAB Furosemide (Lasix) 40 Mg Tab 40 MG PO UD PRN for IF WT >OR= 164 LBS, TAB Metoprolol Succ (Toprol Xl) (Toprol-Xl) 25 Mg Tabcr 25 MG PO Q12, #30 TAB Pyridoxine (Vitamin B6) 100 Mg Tab 100 MG PO QAM, TAB Discontinued Medications: Aspirin (Aspirin Ec) 81 Mg Tab 81 MG PO QAM Atorvastatin (Atorvastatin Calcium) 40 Mg Tab 40 MG PO QAM, #30 TAB Gabapentin (Neurontin) 400 Mg Cap 400 MG PO HS, CAP Gabapentin (Neurontin) 400 Mg Cap 1 CAP PO HS for 30 Days, CAP 2 Refills Gabapentin (Neurontin) 100 Mg Cap 200 MG PO, CAP Oxycodone/Acetaminophen 5MG/325MG (Percocet 5MG/325MG) Tab 1-2 TABLETS PO Q4H PRN for Pain, TAB PAIN Propranolol HCl (Propranolol HCl) 20 Mg Tab 40 MG PO TID, #90 TAB Spironolactone (Aldactone) 25 Mg Tab 25 MG PO, TAB Zolpidem Tartrate (Zolpidem Tartrate) 5 Mg Tab 1 TAB PO HS Discharge Exam Please see progress note from 23 February Hospital Course 86 yo with multiple co-morbidities presents with unresponsive episode, tachycardia and hypotension from [place]. He recovered well and was back to his baseline mental state the following day. Likely iatrogenic from sedating medications and antihypertensives. Subactue stroke noted on MRI but he was completely back to his baseline the following morning without any residual deficits therefore this is thought to be an incidental finding rather than the cause of his unresponsive episode. Either way he cannot take any aspirin, plavix , or anticoagulation due to recent life threatening GI bleed and ongoing hematuria. He is now back to his baseline mental state and will discharged to [facility] for rehabilitation. Total Time Spent: Less than 30 minutes This includes examination of the patient, discharge planning, medication reconciliation, and communication with other providers. Discharge Instructions Please refer to the electronic Patient Visit Report (Discharge Instructions) for additional information. Follow-Up Please have repeat H&H and BMP on Sunday to check the hematuria is not making you anemic and potassium is normal (as stopping spironolactone). We will arrange a follow up appointment with urology for next week regarding the hematuria. Follow up with doctors at [facility]. Additional Copies To Vikas Cook M.D.
[2017-06-11] MEDS ORDERED: FURO40TA3 PO (11:18)
[2017-06-11] MEDS ORDERED: LCTS240 PO (11:18)
[2017-06-11] MEDS ORDERED: SPIR50TA2 PO (11:20)
== END 2017-02-23 15:14 | disposition home or self-care (01) | DRG 314 ==
LOC: ENRESERVDT → ENRESERVTM → EDBD 12:07 → C.EDB 12:08 → C.2T 15:11 → C.4E 02-22 17:35
PROVIDERS: ADMIT Internal Medicine; ATTEND Family Medicine
PROC: 0T9B70Z Drainage of Bladder with Drainage Device, Via Natural or Artificial Opening (ICD-10-PCS; principal; 2017-02-21)
DX: I95.89 Other hypotension (principal); G93.40 Encephalopathy, unspecified; I63.9 Cerebral infarction, unspecified; N18.4 Chronic kidney disease, stage 4 (severe); I12.9 Hypertensive chronic kidney disease with stage 1 through stage 4 chronic kidney disease, or unspecified chronic kidney disease; R31.0 Gross hematuria; I71.2 Thoracic aortic aneurysm, without rupture; I71.4 Abdominal aortic aneurysm, without rupture; I70.0 Atherosclerosis of aorta; G89.29 Other chronic pain; G62.9 Polyneuropathy, unspecified; I48.2 Chronic atrial fibrillation; K74.60 Unspecified cirrhosis of liver; D69.6 Thrombocytopenia, unspecified; Z66 Do not resuscitate; Z87.19 Personal history of other diseases of the digestive system; Z79.82 Long term (current) use of aspirin; Z79.83 Long term (current) use of bisphosphonates; Z79.899 Other long term (current) drug therapy; Z82.49 Family history of ischemic heart disease and other diseases of the circulatory system

== ENCOUNTER 2017-02-25 08:54 | Emergency (ER) | payer OTHER, BC ==
[~2017-02-25] VITALS: Ht 170.2 cm; Wt 73.0 kg
[~2017-02-25 08:54] MED LIST changes: -AMB5 PO; -ASPI81TA28 PO; +FRS/40 PO; -GABA-112 PO; -GABA1CAP5 PO; -LPT40 PO; -MAGNSUS5 PO; +METO25TA3 PO; -OXYC-57 PO; +PRLSR20 PO; -PROP20TA66 PO; +TRAZ50TA35 PO
[2017-02-25 08:58] VITALS: TEMP 37; Ht 170.2 cm; Wt 73.0 kg
[2017-02-25] MEDS ORDERED: FLUT1SPR12 NAE (09:53)
[2017-02-25] MEDS ORDERED: DSY/150 PO (09:53)
[2017-02-25] MEDS ORDERED: ACET650S10 PR (09:53)
[2017-02-25] MEDS ORDERED: SODIENE PR (09:53)
[2017-02-25] MEDS ORDERED: ONDA4TAB46 PO (09:53)
[2017-02-25] MEDS ORDERED: BISA10SU5 PR (09:53)
[2017-02-25] MEDS ORDERED: MAGN400T6 PO (09:53)
[2017-02-25] MEDS ORDERED: MOMLX PO (09:53)
[2017-02-25] MEDS ORDERED: HYDR1AER23 PR (09:54)
[2017-02-25] MEDS ORDERED: LIDOCAINE HCL 2% VISC SOLN 20 ML UDC MT STA (10:13)
[2017-02-25] MEDS ORDERED: LIDOCAINE HCL 2% JELLY 30 ML TUBE EXT ONE (10:19)
[2017-02-25 10:47] LABS: MANUAL MICROSCOPIC REQUIRED? YES; REVIEW REQ? NO; URINE APPEARANCE TURBID (CLEAR); URINE BILIRUBIN NEG (NEG); URINE COLOR RED; URINE NITRITE NEG (NEG); URINE PH 6.5 (4.5-7.5); UROBILINOGEN NEG (NEG)
[2017-02-25 10:48] LABS: URINE RBC >30 /hpf (0-4)
[2017-02-25 10:51] LABS: URINE BACTERIA NEG (NEG)
[2017-02-25 10:55] LABS: HEMATOCRIT 31.1 % (42-52); MEAN CELL VOLUME 92.8 fL (80-100); MEAN CORPUSCULAR HEMOGLOBIN 29.6 pg (25-34); MEAN CORPUSCULAR HGB CONC 31.8 g/dl (32-36); RED BLOOD COUNT 3.35 M/uL (4.7-6.1); WHITE BLOOD COUNT 3.41 K/uL (4.8-10.8)
[2017-02-25 11:07] LABS: INR 1.3 (0.9-1.1); PROTHROMBIN TIME (PATIENT) 13.5 SECONDS (9.0-12.0)
[2017-02-25 11:11] LABS: BUN/CREATININE RATIO 28.8 (10-20); CREATININE 1.6 mg/dl (0.60-1.40); POTASSIUM 4.5 mmol/L (3.5-5.1)
[2017-02-25 11:31] LABS: MEAN PLATELET VOLUME 10.1 fL (7.4-10.4); PLATELET COUNT 87 K/uL (130-400)
[2017-02-25 11:34] LABS: COMPLETE YES; EOS % 2.1 %; IG% 0.3 %; LYMPH % 29.9 %; LYMPH ABS # 1.02 K/uL (1.2-3.4); MONO % 8.2 %; NEUT % 59.5 %; OVALOCYTES 2+; PLT ESTIMATE DECREASED
[2017-02-25 13:42] VITALS: BP 120/80; PULSE 75; O2SAT 95
--- NOTE | 2017-02-25 16:38 | EMERGENCY ROOM VISIT NOTE ---
History Report prepared by Rg: Eduarda Hickey Under the Supervision of: Dr. Adiel Henry M.D. First contact with patient: 09:59 Chief Complaint: HEMATURIA Stated Complaint: BLEED-FROM PENIS Nursing Triage Summary: pt was discharged from hospital a couple days ago, has hemauria since discharge.pt had catheter while in hospital was removed prior to discharge. pt has hx of enlarged prostate. this am at 0500 staff at [facility] noticed large clots in urine. sent here for eval History of Present Illness The patient is an 86 year old male who presents to the Emergency Room with complaints of persistent hematuria starting a couple days ago. He was discharged from the hospital yesterday and has been having continued hematuria. He reports dysuria. He has pain in his groin and abdomen around his bladder even when he is not urinating. He feels a pressure like he has to urinate. There has been blood and clots in his urine. He has experienced some epistaxis recently. He denies any rectal bleeding, fever, or vomiting. He has a history of prostate problems for the past 6 years. Source of History: patient Onset: couple days ago Position: other (urinary) Symptom Intensity: moderate Quality: other (hematuria) Timing: other (persistent) Associated Symptoms: + abdominal pain, No fevers, No vomiting Note: Pt reports dysuria, groin pain, epistaxis. Pt denies rectal bleeding. Review of Systems See HPI for pertinent positives & negatives. A total of 10 systems reviewed and were otherwise negative. 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 (9) Diabetes (10) GI bleed (11) Heart disease (12) Heart murmur (13) Herpes zoster (14) Hypertension (15) HYPERTENSION NOS (16) Inguinal hernia (17) Malignant melanoma Surgical Problems: (1) History of herniorrhaphy Family History Cancer Heart disease Hypertension Social History Smoking Status: Never Smoker Alcohol Use: occasionally Drug Use: none Marital Status: Housing Status: lives with significant other Occupation Status: retired Current/Historical Medications Scheduled Allopurinol (Allopurinol), 100 MG PO QAM Ascorbic Acid (Vitamin C), 500 MG PO QAM Cholecalciferol (Vitamin D), 2,000 UNIT PO QAM Coenzyme Q10 (Ubidecarenone) (Coq10), 100 MG PO QAM Cyanocobalamin (Vitamin B12), 1,000 MCG PO QAM Ferrous Sulfate (Kp Ferrous Sulfate), 325 MG PO BID Finasteride (Proscar), 5 MG PO QAM Fluticasone Propionate (Nasal) (Flonase Allergy Relief Ch), 2 SPRAY LUIS DAILY Magnesium Oxide (Mag-Ox), 400 MG PO QAM Metoprolol Succ (Toprol Xl) (Toprol-Xl), 25 MG PO Q12 Omeprazole (Prilosec), 20 MG PO BID Pyridoxine (Vitamin B6), 100 MG PO QAM Trazodone HCl (Trazodone HCl), 150 MG PO HS Scheduled PRN Acetaminophen (Tylenol), 650 MG [place] Q4 PRN for ELEVATED TEMPERATURE Acetaminophen Tab (Tylenol), 650 MG PO Q4H PRN for RN Bisacodyl (Bisacodyl), 10 MG [place] DAILY PRN for Constipation Furosemide (Lasix), 40 MG PO UD PRN for IF WT >OR= 164 LBS Hydrocortisone/Pramoxine (Proctofoam Hc), 1 APPL [place] Q6 PRN for HEMORRHOID PAIN Magnesium Hydroxide (Milk of Magnesia), 30 ML PO DAILY PRN for 2 DAYS NO BM Ondansetron Hcl (Zofran), 4 MG PO Q6 PRN for Nausea Sodium Phosphate/Biphosphate (Fleet Enema), 1 EA [place] DAILY PRN for Constipation Allergies Coded Allergies: No Known Allergies (Verified , 01/02/17) Physical Exam Vital Signs Date Time Temp Pulse Resp B/P Pulse Ox O2 Delivery O2 Flow Rate FiO2 02/25/17 13:42 75 18 120/80 95 Room Air 02/25/17 12:56 77 18 123/80 95 Room Air 02/25/17 11:50 86 18 120/75 93 Room Air 02/25/17 10:49 75 18 106/73 97 Room Air 02/25/17 08:58 37.0 67 18 101/69 93 Room Air Physical Exam Constitutional: Vital signs reviewed. Eyes: Pupils are equal round reactive to light. Conjunctiva are noninjected. ENT: Pharynx is clear without erythema or exudate. Mucous membranes are moist. Neck supple without meningeal signs. Respiratory: Clear to auscultation bilaterally. Breath sounds are equal bilaterally. Cardiovascular: Regular rate and rhythm. No rubs or gallops. GI: Soft, nondistended with mild suprapubic tenderness and fullness. Bowel sounds are present. :No blood at the urethral meatus. Musculoskeletal: No peripheral edema. No lower extremity tenderness. Integumentary: No cyanosis. Neurological: The patient is awake and alert. No focal deficits. Psychiatric: Normal affect. Medical Decision & Procedures Laboratory Results 02/25/17 10:45 Red Blood Count 3.35, Mean Corpuscular Volume 92.8, Mean Corpuscular Hemoglobin 29.6, Mean Corpuscular Hemoglobin Concent 31.8, Mean Platelet Volume 10.1, Neutrophils (%) (Auto) 59.5, Lymphocytes (%) (Auto) 29.9, Monocytes (%) (Auto) 8.2, Eosinophils (%) (Auto) 2.1, Basophils (%) (Auto) 0.0, Neutrophils # (Auto) 2.03, Lymphocytes # (Auto) 1.02, Monocytes # (Auto) 0.28, Eosinophils # (Auto) 0.07, Basophils # (Auto) 0.00 02/25/17 10:45 Test 02/25/17 10:30 02/25/17 10:45 Urine Color RED Urine Appearance TURBID (CLEAR) Urine pH 6.5 (4.5-7.5) Urine Specific [place] 1.020 (1.000-1.030) Urine Protein 3+ (NEG) Urine Glucose (UA) NEG (NEG) Urine Ketones NEG (NEG) Urine Occult Blood 3+ (NEG) Urine Nitrite NEG (NEG) Urine Bilirubin NEG (NEG) Urine Urobilinogen NEG (NEG) Urine Leukocyte Esterase NEG (NEG) Urine RBC >30 /hpf (0-4) Urine WBC 10-30 /hpf (0-5) Urine Epithelial Cells 5-10 /lpf (0-5) Urine Bacteria NEG (NEG) White Blood Count 3.41 K/uL (4.8-10.8) Red Blood Count 3.35 M/uL (4.7-6.1) Hemoglobin 9.9 g/dL (14.0-18.0) Hematocrit 31.1 % (42-52) Mean Corpuscular Volume 92.8 fL (80-100) Mean Corpuscular Hemoglobin 29.6 pg (25-34) Mean Corpuscular Hemoglobin Concent 31.8 g/dl (32-36) Platelet Count 87 K/uL (130-400) Mean Platelet Volume 10.1 fL (7.4-10.4) Neutrophils (%) (Auto) 59.5 % Lymphocytes (%) (Auto) 29.9 % Monocytes (%) (Auto) 8.2 % Eosinophils (%) (Auto) 2.1 % Basophils (%) (Auto) 0.0 % Neutrophils # (Auto) 2.03 K/uL (1.4-6.5) Lymphocytes # (Auto) 1.02 K/uL (1.2-3.4) Monocytes # (Auto) 0.28 K/uL (0.11-0.59) Eosinophils # (Auto) 0.07 K/uL (0-0.5) Basophils # (Auto) 0.00 K/uL (0-0.2) RDW Standard Deviation 55.4 fL (36.4-46.3) RDW Coefficient of Variation 16.2 % (11.5-14.5) Immature Granulocyte % (Auto) 0.3 % Immature Granulocyte # (Auto) 0.01 K/uL (0.00-0.02) Platelet Estimate DECREASED Ovalocytes 2+ Prothrombin Time 13.5 SECONDS (9.0-12.0) Prothromb Time International Ratio 1.3 (0.9-1.1) Activated Partial Thromboplast Time 26.4 SECONDS (21.0-31.0) Partial Thromboplastin Ratio 1.0 Anion Gap 8.0 mmol/L (3-11) Est Creatinine Clear Calc Drug Dose 29.8 ml/min Estimated GFR () 43.9 Estimated GFR (Non- 37.9 BUN/Creatinine Ratio 28.8 (10-20) Calcium Level 9.0 mg/dl (8.5-10.1) Laboratory results as reviewed by me. Medications Administered Medications (Trade) Dose Ordered Sig/Jossie Route Start Time Stop Time Status Last Admin Dose Admin Lidocaine HCl (Xylocaine Jelly 2%) 30 ml STK-MED ONCE EXT 02/25/17 10:19 02/25/17 10:20 DC 02/25/17 10:19 30 ML ED Course 1007: The patient was evaluated in room A10. A complete history and physical exam was performed. 1019: Lidocaine HCl 30 ml EXT. 1110: I reevaluated the patient. He is feeling better. He is draining bloody urine after Mendoza catheter placement. 1140: I discussed the patient's case with Dr. Chun, [facility] - hospitalist. He would like to bring the patient in for irrigation of the bladder. 1144: Upon reevaluation, the patient is resting comfortably. I discussed tonight 's findings with him. He verbalized agreement of the treatment plan. He will be evaluated for further management by the [facility] hospitalist service. 1158: Dr. Chun has evaluated the patient. The Mendoza catheter is clearing up and he recommends the patient be discharged home. The nurses have irrigated the Mendoza and the patient will be discharged home. Medical Decision This is an 86-year-old male who presents with hematuria. Differential diagnosis includes coagulopathy, renal failure, UTI, bladder mass, kidney mass. I did perform a limited focused review of portions of the patient's old chart on the electronic medical record. The patient was admitted on February 21 for unresponsiveness. He had a Mendoza catheter placed at that time because he was unresponsive. 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 His creatinine was 1.6. He was found to have gross hematuria during his hospitalization. He is not on any blood thinners including aspirin because of his prior history of GI bleed. I did evaluate the patient as noted above. He is presenting with fullness to his bladder any gross hematuria. IV access was established. I did order and review the patient's blood work as noted in the electronic medical record. He has no acute change in his blood tests. He does have chronic anemia as well as an INR 1.3. A Mendoza catheter was placed. It did drain gross blood. It was irrigated and cleared up. Urinalysis did not show signs of infection. A urine culture was sent. I did discuss the case with Dr. Chun who had admitted the patient previously. Initially his plan was to admit for irrigation but when he assessed the patient and the Mendoza was clear he felt the [facility]. The patient was happy with this plan and discharged with the Mendoza in place. Consults Time Called: 1134 Consulting Physician: Dr. Chun, [facility] - hospitalist Returned Call: 1140 I discussed the patient's case with him. He would like to bring the patient in for irrigation of the bladder. Impression Primary Impression: Gross hematuria Additional Impression: Urinary retention Scribe Attestation The scribe's documentation has been prepared under my direct and personally reviewed by me in its entirety. I confirm that the note above accurately reflects all work, treatment, procedures, and medical decision making performed by me. Departure Information Dispostion Home / Self-Care Referrals Vikas Cook M.D. (PCP) Forms HOME CARE DOCUMENTATION FORM, IMPORTANT VISIT INFORMATION, WORK / SCHOOL INSTRUCTIONS Patient Instructions ED Hematuria, My [facility] Additional Instructions You have been examined and treated today on an emergency basis only. This is not a substitute for, or an effort to provide, complete comprehensive medical care. It is impossible to recognize and treat all injuries or illnesses in a single emergency department visit. It is therefore important that you follow up closely with your physician tomorrow. Call as soon as possible for an appointment. Return for worsening symptoms or if you develop fever, vomiting, abdominal pain or any other concerning symptoms. Problem Qualifiers
[2017-02-26] MEDS ORDERED: RXC5 PO (20:06)
[2017-06-11] MEDS ORDERED: FURO40TA3 PO (11:18)
[2017-06-11] MEDS ORDERED: LCTS240 PO (11:18)
[2017-06-11] MEDS ORDERED: SPIR50TA2 PO (11:20)
== END 2017-02-25 13:40 | disposition home or self-care (01) ==
LOC: EDBD 08:54 → C.EDA 08:55
DX: R31.0 Gross hematuria (principal); R33.9 Retention of urine, unspecified; I71.4 Abdominal aortic aneurysm, without rupture; I25.10 Atherosclerotic heart disease of native coronary artery without angina pectoris; E11.9 Type 2 diabetes mellitus without complications; I10 Essential (primary) hypertension; Z85.820 Personal history of malignant melanoma of skin; Z98.890 Other specified postprocedural states; Z82.49 Family history of ischemic heart disease and other diseases of the circulatory system; Z79.899 Other long term (current) drug therapy

== ENCOUNTER 2017-02-26 17:57 | Inpatient (IN) | payer OTHER, BC ==
[~2017-02-26] VITALS: Ht 170.2 cm; Wt 72.0 kg
[~2017-02-26 17:57] MED LIST changes: +ALEN70TA4 PO; +AMB5 PO; +ASPI81TA28 PO; -BACI500O11 NAE; +CARB0.5D8 OP; -FURO40TA3 PO; -GABA1CAP4 PO; +GABA1CAP5 PO; -LCTS240 PO; -LPR25 PO; +LPT40 PO; -LSX20 PO; +MAGN1TAB19 PO; +MAGNSUS5 PO; -METO1TAB54 PO; +OXYC-57 PO; +PROP20TA66 PO; -RXC5 PO; -SALI0.658 NAE; -SALI1SPR3 NAE; +SPIR25TA PO; -SPIR50TA2 PO; +TRAZ50TA35 PO
[2017-02-26] MEDS ORDERED: SODIUM CHLORIDE 0.9% 1000ML 500 ML IV STA (18:25)
--- NOTE | 2017-02-26 18:42 | EMERGENCY ROOM VISIT NOTE ---
History Report prepared by Rg: Elida Cunningham Under the Supervision of: Dr. Wolfgang Nguyen M.D. First contact with patient: 18:17 Chief Complaint: HEMATURIA Stated Complaint: HEMATURIA Nursing Triage Summary: sent over from [facility] r/t hematuria History of Present Illness The patient is a 86 year old male who presents to the Emergency Room with complaints of persistent hematuria that started a few days ago. He is also experiencing pain when he tries to urinate. The patient denies fevers, vomiting , and weakness. The patient was seen in the ED yesterday for hematuria and burning with urination. A Mendoza catheter was placed while he was in the ED. Yesterday, the patient had a hemoglobin of 9.9, creatinine of 1.6, his urine sample was grossly blood, and his urine culture is negative so far. According to the note from the patient's visit yesterday, the patient was going to be admitted but his symptoms resolved just prior to setting up admission so they let him go home. The patient was also in the hospital and discharged on February 23. According to his records, the bleeding was present when he left the hospital on February 23. The patient is not on any blood thinners. Source of History: patient Onset: a few days ago Quality: other (hematuria) Timing: other (persistent) Associated Symptoms: No fevers, No vomiting, No weakness Note: pain with urination Review of Systems See HPI for pertinent positives & negatives. A total of 10 systems reviewed and were otherwise negative. 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 (9) Diabetes (10) GI bleed (11) Heart disease (12) Heart murmur (13) Herpes zoster (14) Hypertension (15) HYPERTENSION NOS (16) Inguinal hernia (17) Malignant melanoma Surgical Problems: (1) History of herniorrhaphy Family History Cancer Heart disease Hypertension Social History Smoking Status: Never Smoker Alcohol Use: occasionally Drug Use: none Marital Status: Housing Status: lives with significant other Occupation Status: retired Current/Historical Medications Scheduled Allopurinol (Allopurinol), 100 MG PO QAM Ascorbic Acid (Vitamin C), 500 MG PO QAM Cholecalciferol (Vitamin D), 2,000 UNIT PO QAM Coenzyme Q10 (Ubidecarenone) (Coq10), 100 MG PO QAM Cyanocobalamin (Vitamin B12), 1,000 MCG PO QAM Ferrous Sulfate (Kp Ferrous Sulfate), 325 MG PO BID Finasteride (Proscar), 5 MG PO QAM Fluticasone Propionate (Nasal) (Flonase Allergy Relief Ch), 2 SPRAY [place] DAILY Magnesium Oxide (Mag-Ox), 400 MG PO QAM Metoprolol Succ (Toprol Xl) (Toprol-Xl), 25 MG PO Q12 Omeprazole (Prilosec), 20 MG PO BID Pyridoxine (Vitamin B6), 100 MG PO QAM Trazodone HCl (Trazodone HCl), 150 MG PO HS Scheduled PRN Acetaminophen (Tylenol), 650 MG [place] Q4 PRN for ELEVATED TEMPERATURE Acetaminophen Tab (Tylenol), 650 MG PO Q4H PRN for RN Bisacodyl (Bisacodyl), 10 MG [place] DAILY PRN for Constipation Furosemide (Lasix), 40 MG PO UD PRN for IF WT >OR= 164 LBS Hydrocortisone/Pramoxine (Proctofoam Hc), 1 APPL [place] Q6 PRN for HEMORRHOID PAIN Magnesium Hydroxide (Milk of Magnesia), 30 ML PO DAILY PRN for 2 DAYS NO BM Ondansetron Hcl (Zofran), 4 MG PO Q6 PRN for Nausea Sodium Phosphate/Biphosphate (Fleet Enema), 1 EA [place] DAILY PRN for Constipation Allergies Coded Allergies: No Known Allergies (Verified , 01/02/17) Physical Exam Vital Signs Date Time Temp Pulse Resp B/P Pulse Ox O2 Delivery O2 Flow Rate FiO2 02/26/17 18:01 37.2 72 14 113/75 94 Room Air Physical Exam GENERAL: Patient is in no acute distress. HEENT: No acute trauma, normocephalic atraumatic, mucous membranes moist, no nasal congestion, no scleral icterus. NECK: No stridor, no adenopathy, no meningismus, trachea is midline. LUNGS: Clear to auscultation bilaterally, no wheeze, no rhonchi, breath sounds equal. HEART: 4/6 systolic murmur with regular rate and rhythm. ABDOMEN: Soft, nontender, bowel sounds positive, no hernias, no peritonitis. GROIN: No cellulitis, Mendoza catheter draining gross blood. EXTREMITIES: No cyanosis or edema, full range of motion of all the joints without pain or difficulty, no signs for acute trauma. NEUROLOGIC: Some dementia noted, moving all extremities, awake and alert. SKIN: No rash, no jaundice, no diaphoresis. Medical Decision & Procedures Laboratory Results 02/26/17 19:09 Red Blood Count 3.10, Mean Corpuscular Volume 93.5, Mean Corpuscular Hemoglobin 29.7, Mean Corpuscular Hemoglobin Concent 31.7, Mean Platelet Volume 10.5, Neutrophils (%) (Auto) 64.1, Lymphocytes (%) (Auto) 23.9, Monocytes (%) (Auto) 9.4, Eosinophils (%) (Auto) 2.2, Basophils (%) (Auto) 0.2, Neutrophils # (Auto) 2.86, Lymphocytes # (Auto) 1.07, Monocytes # (Auto) 0.42, Eosinophils # (Auto) 0.10, Basophils # (Auto) 0.01 02/26/17 19:09 Test 02/26/17 19:09 White Blood Count 4.47 K/uL (4.8-10.8) Red Blood Count 3.10 M/uL (4.7-6.1) Hemoglobin 9.2 g/dL (14.0-18.0) Hematocrit 29.0 % (42-52) Mean Corpuscular Volume 93.5 fL (80-100) Mean Corpuscular Hemoglobin 29.7 pg (25-34) Mean Corpuscular Hemoglobin Concent 31.7 g/dl (32-36) Platelet Count 91 K/uL (130-400) Mean Platelet Volume 10.5 fL (7.4-10.4) Neutrophils (%) (Auto) 64.1 % Lymphocytes (%) (Auto) 23.9 % Monocytes (%) (Auto) 9.4 % Eosinophils (%) (Auto) 2.2 % Basophils (%) (Auto) 0.2 % Neutrophils # (Auto) 2.86 K/uL (1.4-6.5) Lymphocytes # (Auto) 1.07 K/uL (1.2-3.4) Monocytes # (Auto) 0.42 K/uL (0.11-0.59) Eosinophils # (Auto) 0.10 K/uL (0-0.5) Basophils # (Auto) 0.01 K/uL (0-0.2) RDW Standard Deviation 56.1 fL (36.4-46.3) RDW Coefficient of Variation 16.4 % (11.5-14.5) Immature Granulocyte % (Auto) 0.2 % Immature Granulocyte # (Auto) 0.01 K/uL (0.00-0.02) Platelet Estimate DECREASED Prothrombin Time 13.4 SECONDS (9.0-12.0) Prothromb Time International Ratio 1.2 (0.9-1.1) Activated Partial Thromboplast Time 25.6 SECONDS (21.0-31.0) Partial Thromboplastin Ratio 1.0 Anion Gap 7.0 mmol/L (3-11) Est Creatinine Clear Calc Drug Dose 31.8 ml/min Estimated GFR () 47.5 Estimated GFR (Non- 41.0 BUN/Creatinine Ratio 29.5 (10-20) Calcium Level 8.8 mg/dl (8.5-10.1) Total Bilirubin 0.5 mg/dl (0.2-1) Aspartate Amino Transf (AST/SGOT) 34 U/L (15-37) Alanine Aminotransferase (ALT/SGPT) 32 U/L (12-78) Alkaline Phosphatase 122 U/L (45-117) Total Protein 7.3 gm/dl (6.4-8.2) Albumin 3.5 gm/dl (3.4-5.0) Globulin 3.8 gm/dl (2.5-4.0) Albumin/Globulin Ratio 0.9 (0.9-2) Laboratory results reviewed by me. Medications Administered Medications (Trade) Dose Ordered Sig/Jossie Route Start Time Stop Time Status Last Admin Dose Admin Sodium Chloride (Nss 1000ml) 500 ml @ 999 mls/hr Q31M STAT IV 02/26/17 18:25 02/26/17 18:55 DC 02/26/17 19:28 999 MLS/HR Lidocaine HCl (Xylocaine Jelly 2%) 30 ml STK-MED ONCE EXT 02/26/17 19:07 02/26/17 19:08 DC 02/26/17 19:12 30 ML ED Course 1821: The patient was evaluated in room A3. A complete history and physical exam was performed. 1824: Ordered Sodium Chloride 500 ml @ 999 mls/hr IV 1942: Nursing staff informed me that the patient is now hooked up to a three- way Mendoza catheter for continuous irrigation. 1944: Upon reexamination the patient is resting comfortably. I discussed results and treatment plan with the patient. He verbalizes agreement and understanding. The patient will be evaluated for further management.. 1950: Discussed the patient's case with Dr. Lyn HANNA. The patient will be evaluated for further management. Medical Decision Differential diagnoses considered include bladder malignancy, urethral tear, UTI , renal mass, electrolyte imbalance, anemia, coagulopathy. There is no leukocytosis, in fact, the white count is slightly low. Hemoglobin is low and slightly lower than it was yesterday. The number is not in need of emergent correction though. Platelet count somewhat low but not critical and actually, this is where his platelet count has been running lately. There was some renal insufficiency/dehydration by renal panel testing, no significant electrolyte abnormality requiring correction. No concerning coagulopathy. There was no hepatitis. Urine culture from yesterday has not grown any organisms. The patient was bleeding heavily from the Mendoza. It was removed. A new one was placed but we could still not irrigate secondary to clotting. A three-way Mendoza catheter was eventually placed and continuous bladder irrigation was ordered. The patient requires admission/observation. He is bleeding profusely from the penis. He has dropped his hemoglobin. Outpatient care is no longer appropriate. He has failed outpatient management. I did speak to the patient and case management. The on-call hospitalist was consulted. Consults Time Called: 1948 Consulting Physician: Dr. Lyn HANNA Returned Call: 1950 Discussed the patient's case with Dr. Lyn HANNA. The patient will be evaluated for further management. Impression Primary Impression: Hematuria Additional Impressions: Failure of outpatient treatment Thrombocytopenia Anemia Scribe Attestation The scribe's documentation has been prepared under my direction and personally reviewed by me in its entirety. I confirm that the note above accurately reflects all work, treatment, procedures, and medical decision making performed by me. Departure Information Dispostion Being Evaluated By Hospitalist Referrals Tyler Miller (PCP) Patient Instructions My [facility] Problem Qualifiers Additional Impressions: Anemia Anemia type: unspecified type Qualified Codes: D64.9 - Anemia, unspecified
[2017-02-26] MEDS ORDERED: LIDOCAINE HCL 2% JELLY 30 ML TUBE EXT ONE (19:07)
[2017-02-26 19:20] LABS: MEAN CELL VOLUME 93.5 fL (80-100); MEAN CORPUSCULAR HEMOGLOBIN 29.7 pg (25-34); MEAN CORPUSCULAR HGB CONC 31.7 g/dl (32-36); WHITE BLOOD COUNT 4.47 K/uL (4.8-10.8)
[2017-02-26 19:33] LABS: INR 1.2 (0.9-1.1); PROTHROMBIN TIME (PATIENT) 13.4 SECONDS (9.0-12.0)
[2017-02-26 19:41] LABS: BUN/CREATININE RATIO 29.5 (10-20); CALCIUM 8.8 mg/dl (8.5-10.1); CREATININE 1.5 mg/dl (0.60-1.40); POTASSIUM 4.5 mmol/L (3.5-5.1)
[2017-02-26 19:44] LABS: ALB/GLOB RATIO 0.9 (0.9-2)
[2017-02-26 19:52] LABS: MEAN PLATELET VOLUME 10.5 fL (7.4-10.4); PLATELET COUNT 91 K/uL (130-400)
[2017-02-26 19:53] LABS: BASO % 0.2 %; BASO ABS # 0.01 K/uL (0-0.2); COMPLETE YES; EOS % 2.2 %; IG% 0.2 %; LYMPH % 23.9 %; LYMPH ABS # 1.07 K/uL (1.2-3.4); MONO % 9.4 %; NEUT % 64.1 %; PLT ESTIMATE DECREASED
[2017-02-26] MEDS ORDERED: RXC5 PO ×2 (20:06)
[2017-02-26] MEDS ORDERED: ACETAMINOPHEN 325 MG TAB PO PRN (20:30)
[2017-02-26] MEDS ORDERED: ALUMINUM/MAGNESIUM/SIMETH (MAALOX MAX) 30 ML UDC PO PRN (20:30)
[2017-02-26] MEDS ORDERED: HYDROCORTISONE PR PRN (20:30)
[2017-02-26] MEDS ORDERED: OXYCODONE HCL IR 5 MG TAB (IMMEDIATE RELEASE) PO PRN (20:30)
[2017-02-26] MEDS ORDERED: BISACODYL 10 MG SUPP PR PRN (20:30)
[2017-02-26] MEDS ORDERED: POLYETHYLENE (MIRALAX) 17 GM PACK PO PRN (20:30)
[2017-02-26] MEDS ORDERED: ONDANSETRON 4 MG TAB PO PRN (20:30)
[2017-02-26] MEDS ORDERED: ONDANSETRON INJ 2 MG/ML 2 ML VIAL IV PRN (20:30)
[2017-02-26] MEDS ORDERED: FUROSEMIDE 40 MG TAB PO PRN (20:30)
[2017-02-26] MEDS ORDERED: PRAMOXINE 1% PR PRN (20:30)
[2017-02-26] MEDS ORDERED: MAGNESIUM HYDROXIDE SUSP 30 ML UDC PO PRN (20:30)
[2017-02-26] MEDS ORDERED: MoRPHine SULFATE 2 MG/ML CARP IV PRN (20:45)
[2017-02-26] MEDS: METOPROLOL SUCC 25MG EXT REL TAB PO SCH (21:00)
[2017-02-26] MEDS: TRAZODONE HCL 50 MG TAB PO SCH (21:00)
[2017-02-26 21:05] VITALS: BP 147/89; PULSE 102; TEMP 36.7; O2SAT 99
--- NOTE | 2017-02-26 21:08 | History and Physical ---
History & Physical Date & Time of Service: Feb 26, 2017 at 20:47 Chief Complaint: Hematuria Primary Care Physician: Tyler Miller History of Present Illness Source: patient Is a pleasant 86-year-old gentleman, who presents to the emergency department with reji hematuria, and passing clots from his penis. He is resident at [facility]. He is unclear on how long exactly the symptoms of them are not for, stating "I think this might of been going on for years I mentioned at the somewhat a few months ago". He states it is been worsening for the past week. He also states he is having waxing and waning 5/10 burning pain from his penis, with intense urgency to void. He feels in the past week the pain has been happening more frequently. In between the bouts of pain, his pain rating is a 0/10. In addition to penile pain, he describes a similar burning 5/10 pain in the suprapubic area, but does not radiate to the flanks or the back. He currently denies any other sources of bleeding, including epistaxis, gingival bleeding, rectal bleeding. He doesn't think this is ever happened to him before. He does not have any concurrent nausea, vomiting, diarrhea, constipation. He states that he has had a very slight nonproductive cough for the past several days. He denies any other upper or lower respiratory symptoms. He denies chest pain, palpitations, lightheadedness, dizziness, or worsening lower extremity edema. Patient is noted to have atrophic fibrillation with RVR. He is previous he been on Coumadin but this was stopped due to high bleeding risk and previous bleed on Coumadin. He is currently not on any blood thinners. Review of the EMR shows that he was also here yesterday for similar complaints. He did have a Mendoza catheter placed at that time, and it was noted that the blood and clot were aggressively clearing therefore results really discharged back home to [facility]. He is also admitted 4 days ago, with an apparent episode of unresponsiveness. There was concern that he may have ruptured a chronic abdominal aortic aneurysm, but the CT imaging from that admission was negative. 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 Status: Chronic (6) Diabetes Status: Chronic (7) Heart disease Status: Chronic (8) Heart murmur Status: Chronic (9) Herpes zoster Status: Resolved (10) Hypertension Status: Chronic (11) HYPERTENSION NOS Status: Chronic (12) Malignant melanoma Status: Resolved Surgical Problems: (1) History of herniorrhaphy Status: Resolved Family History Cancer Heart disease Hypertension Social History Smoking Status: Never Smoker Smokeless Tobacco Use: No Alcohol Use: none Drug Use: none Marital Status: Housing status: lives with significant other (At [facility]) Occupational Status: retired Multi-Drug Resistant Organisms History of MDRO: No Allergies Coded Allergies: No Known Allergies (Verified , 01/02/17) Home Medications Scheduled Allopurinol (Allopurinol), 100 MG PO QAM Ascorbic Acid (Vitamin C), 500 MG PO QAM Cholecalciferol (Vitamin D), 2,000 UNIT PO QAM Coenzyme Q10 (Ubidecarenone) (Coq10), 100 MG PO QAM Cyanocobalamin (Vitamin B12), 1,000 MCG PO QAM Ferrous Sulfate (Kp Ferrous Sulfate), 325 MG PO BID Finasteride (Proscar), 5 MG PO QAM Fluticasone Propionate (Nasal) (Flonase Allergy Relief Ch), 2 SPRAY LUIS DAILY Magnesium Oxide (Mag-Ox), 400 MG PO QAM Metoprolol Succ (Toprol Xl) (Toprol-Xl), 25 MG PO Q12 Omeprazole (Prilosec), 20 MG PO BID Pyridoxine (Vitamin B6), 100 MG PO QAM Trazodone HCl (Trazodone HCl), 150 MG PO HS Scheduled PRN Acetaminophen (Tylenol), 650 MG AL Q4 PRN for ELEVATED TEMPERATURE Acetaminophen Tab (Tylenol), 650 MG PO Q4H PRN for RN Bisacodyl (Bisacodyl), 10 MG AL DAILY PRN for Constipation Furosemide (Lasix), 40 MG PO UD PRN for IF WT >OR= 164 LBS Hydrocortisone/Pramoxine (Proctofoam Hc), 1 APPL AL Q6 PRN for HEMORRHOID PAIN Magnesium Hydroxide (Milk of Magnesia), 30 ML PO DAILY PRN for 2 DAYS NO BM Ondansetron Hcl (Zofran), 4 MG PO Q6 PRN for Nausea Oxycodone HCl (Oxycodone HCl), 5 MG PO Q4 PRN for Pain Sodium Phosphate/Biphosphate (Fleet Enema), 1 EA AL DAILY PRN for Constipation Review of Systems A 10 point review of systems is otherwise negative unless stated above in the history of present illness Physical Exam Vital Signs Date Time Temp Pulse Resp B/P Pulse Ox O2 Delivery O2 Flow Rate FiO2 02/26/17 19:45 89 18 150/96 93 Room Air 02/26/17 18:01 37.2 72 14 113/75 94 Room Air General Appearance: WD/WN, + mild distress, + moderate distress, + pertinent finding (patient has reads of having no pain, but then pain intensifies for 20- 30 seconds) Head: normocephalic, atraumatic Eyes: normal inspection, EOMI, + pertinent finding (mild pallor of the conjunctiva) ENT: hearing grossly normal, pharynx normal Neck: supple, no adenopathy, no JVD Respiratory/Chest: lungs clear, no respiratory distress Cardiovascular: no edema, no JVD, no murmur Abdomen/GI: normal bowel sounds, non tender, soft, + tenderness (reports tenderness in the suprapubic area; no flank pain) Genitourinary - Male: normal male genitalia, normal phallus, + pertinent finding (three-way Mendoza draining grossly sanguinous fluid, no clots apparent) Back: no CVA tenderness, no muscle spasm Extremities/Musculoskelatal: no calf tenderness, no pedal edema Neurologic/Psych: alert, normal mood/affect, oriented x 3 Skin: normal color, warm/dry, no rash Diagnostics Laboratory Results Results Past 24 Hours Test 02/26/17 19:09 02/26/17 20:34 Range/Units White Blood Count 4.47 4.8-10.8 K/uL Red Blood Count 3.10 4.7-6.1 M/uL Hemoglobin 9.2 14.0-18.0 g/dL Hematocrit 29.0 42-52 % Mean Corpuscular Volume 93.5 80-100 fL Mean Corpuscular Hemoglobin 29.7 25-34 pg Mean Corpuscular Hemoglobin Concent 31.7 32-36 g/dl Platelet Count 91 130-400 K/uL Mean Platelet Volume 10.5 7.4-10.4 fL Neutrophils (%) (Auto) 64.1 % Lymphocytes (%) (Auto) 23.9 % Monocytes (%) (Auto) 9.4 % Eosinophils (%) (Auto) 2.2 % Basophils (%) (Auto) 0.2 % Neutrophils # (Auto) 2.86 1.4-6.5 K/uL Lymphocytes # (Auto) 1.07 1.2-3.4 K/uL Monocytes # (Auto) 0.42 0.11-0.59 K/uL Eosinophils # (Auto) 0.10 0-0.5 K/uL Basophils # (Auto) 0.01 0-0.2 K/uL RDW Standard Deviation 56.1 36.4-46.3 fL RDW Coefficient of Variation 16.4 11.5-14.5 % Immature Granulocyte % (Auto) 0.2 % Immature Granulocyte # (Auto) 0.01 0.00-0.02 K/uL Platelet Estimate DECREASED Prothrombin Time 13.4 9.0-12.0 SECONDS Prothromb Time International Ratio 1.2 0.9-1.1 Activated Partial Thromboplast Time 25.6 21.0-31.0 SECONDS Partial Thromboplastin Ratio 1.0 Sodium Level 144 136-145 mmol/L Potassium Level 4.5 3.5-5.1 mmol/L Chloride Level 111 98-107 mmol/L Carbon Dioxide Level 26 21-32 mmol/L Anion Gap 7.0 3-11 mmol/L Blood Urea Nitrogen 44 7-18 mg/dl Creatinine 1.50 0.60-1.40 mg/dl Est Creatinine Clear Calc Drug Dose 31.8 ml/min Estimated GFR () 47.5 Estimated GFR (Non- 41.0 BUN/Creatinine Ratio 29.5 10-20 Random Glucose 113 70-99 mg/dl Calcium Level 8.8 8.5-10.1 mg/dl Total Bilirubin 0.5 0.2-1 mg/dl Aspartate Amino Transf (AST/SGOT) 34 15-37 U/L Alanine Aminotransferase (ALT/SGPT) 32 12-78 U/L Alkaline Phosphatase 122 45-117 U/L Total Protein 7.3 6.4-8.2 gm/dl Albumin 3.5 3.4-5.0 gm/dl Globulin 3.8 2.5-4.0 gm/dl Albumin/Globulin Ratio 0.9 0.9-2 Impression Assessment and Plan Documented By: Chace Mendoza 86-year-old male, with a history of coronary artery disease, A. fib, stable abdominal aortic aneurysm, hypertension and diabetes, who presents with repeat episode of gross hematuria, as well as passing clots. He was seen yesterday in the emergency department but was ultimately discharged because blood from the Mendoza was clearing up. Unfortunately symptoms have recurred indicating failed outpatient treatment and need for admission for further evaluation. Review of his hemoglobin does show that it is overall stable over the past several days. Nonetheless with the same and is content in the catheter bag, it would be prudent to monitor serial H&H's, consent the patient for receiving blood products, and transfusing as necessary. At this time involving urology and the case for further recommendations as needed. Our plan for him is as follows: Gross hematuria - Hemoglobin stable at 9 - We'll repeat H&H at midnight - Patient to be consented for PRBCs; transfusion threshold 8.0 - Continues irrigation catheter placed - Urology has been consulted; further recommendations will be appreciated Patient may require cystoscopy Given the ongoing bleeding, I will keep the patient nothing by mouth starting now - Morphine 2 mg every 4 hours as needed for severe bouts of pain - Patient not on any blood thinners; INR 1.2; anticoagulation is contraindicated at this time - Patient has had CT scan done on February 21; will wait for urology recommendations before proceeding with additional CT scanning - We'll order bladder/renal ultrasound for limited evaluation of possible etiologies Chronic kidney disease - Creatinine on arrival 1.5 - Patient's renal function appears to have been stable since approximately 2015 - Continue to monitor daily BMP - Nephrotoxins Abdominal aortic aneurysm - Had a CT scan done at last admission, on February 21 Review of report indicates that he has a stable 51 mm infrarenal AAA - Would consider possibility of possible fistulation; patient may require repeat scanning; will wait for urology to evaluate Atrial Fibrillation - Continue metoprolol - Remains rate controlled - Anticoagulation is contraindicated at this time Coronary Artery Disease - Patient is only on metoprolol at this time - Patient does not have aspirin, or statin on chart - Patient currently denies any complaints of chest pain Diabetes - Patient's home med list do not indicate any diabetic medications - Will start sliding scale - Every 6 hour blood sugars as patient is nothing by mouth Hypertension - Continue metoprolol DVT prophylaxis - SCD - Formed clots clinic coagulation is contraindicated at this time CODE STATUS - DO NOT RESUSCITATE Disposition - [facility] - OT and PT orders have been placed; goal would be do for patient to return to [facility], Resident Physician Supervision Note: Pt seen/examined independently. I discussed the case with the resident and agree with the findings and plan as documented in the note. Any exceptions or clarifications are listed here: 86 y/o M AF, CAD, HTN, AAA - presents w/hamturia - recently evaluated for same but had cleared up prior to full urology eval. He is now passing reji blood with clots and required a 3 way w/irrigation. He is anemic but this appears stable as does his renal function which is impaired at baseline O/E AAO x 3 S1,2 irr CTA NT/ND P: 3 way cath placed for continuous irrigation NPO after midnight pending urology eval He is not currently taking anticoagulants or ASA Resuscitation Status DO NOT RESUSCITATE VTE Prophylaxis VTE Risk Assessment Done? Y/N: Yes Risk Level: Moderate Given or contraindicated: Contraindicated (ongoing bleeding)
[2017-02-26] MEDS: SODIUM CHLORIDE 0.45% 1000ML 1,000 ML IV SCH (22:28)
[2017-02-26 23:08] VITALS: BP 147/89; PULSE 102; TEMP 36.7; O2SAT 99; Ht 170.2 cm; Wt 72.0 kg
[2017-02-27 00:49] LABS: HEMATOCRIT 28.5 % (42-52)
[2017-02-27] MEDS: MoRPHine SULFATE 2 MG/ML CARP IV PRN ×3 (02:40→07:51)
[2017-02-27] MEDS: SODIUM CHLORIDE 0.45% 1000ML 1,000 ML IV SCH ×4 (04:52→22:38)
[2017-02-27 05:49] LABS: HEMATOCRIT 24.6 % (42-52); MEAN CELL VOLUME 94.6 fL (80-100); MEAN CORPUSCULAR HEMOGLOBIN 30.8 pg (25-34); MEAN CORPUSCULAR HGB CONC 32.5 g/dl (32-36)
[2017-02-27 05:52] LABS: MEAN PLATELET VOLUME 9.4 fL (7.4-10.4); PLATELET COUNT 74 K/uL (130-400)
[2017-02-27 06:03] LABS: INR 1.2 (0.9-1.1); PROTHROMBIN TIME (PATIENT) 13.3 SECONDS (9.0-12.0)
[2017-02-27 06:23] LABS: BUN/CREATININE RATIO 28.6 (10-20); CALCIUM 8.3 mg/dl (8.5-10.1); CREATININE 1.4 mg/dl (0.60-1.40)
--- NOTE | 2017-02-27 06:31 | DIAGNOSTIC IMAGING REPORT ---
BLADDER ULTRASONOGRAPHY CLINICAL HISTORY: Hematuria COMPARISON STUDY: No previous studies for comparison. FINDINGS: There is indwelling Mendoza catheter. The bladder was empty. This limits the evaluation for bladder masses. Single images of each kidney were acquired. There is no hydronephrosis. IMPRESSION: 1. No evidence of hydronephrosis 2. Mendoza catheter within the bladder Electronically signed by: Manas Bautista M.D. 02/27/2017 6:29 AM Dictated Date/Time: 02/27/2017 6:28 AM
[2017-02-27 07:25] VITALS: BP 167/92; PULSE 75; TEMP 36.7; O2SAT 93
[2017-02-27 07:28] VITALS: BP 112/74; PULSE 111; TEMP 36.6
[2017-02-27] MEDS: MAGNESIUM OXIDE 400 MG TAB PO SCH (07:38)
[2017-02-27] MEDS: ALLOPURINOL 100 MG TAB PO SCH (07:38)
[2017-02-27] MEDS: FLUTICASONE PROPIONATE NA SPR 16 GM BTL NAE SCH (07:38)
[2017-02-27] MEDS: PANTOprazole SOD 40 MG TAB PO SCH ×2 (07:38→20:09)
[2017-02-27] MEDS: PYRIDOXINE HCL 50 MG TAB PO SCH (07:39)
[2017-02-27] MEDS: FERROUS SULFATE 325 MG TAB PO SCH ×2 (07:39→20:10)
[2017-02-27] MEDS: FINASTERIDE 5 MG TAB PO SCH (07:39)
[2017-02-27] MEDS: METOPROLOL SUCC 25MG EXT REL TAB PO SCH ×2 (07:39→20:10)
[2017-02-27 07:45] VITALS: BP 109/72; PULSE 118; TEMP 36.6
[2017-02-27] MEDS ORDERED: LIDOCAINE HCL 2% JELLY 30 ML TUBE EXT PRN (08:00)
[2017-02-27 08:15] VITALS: BP 132/86; PULSE 111; TEMP 36.7
[2017-02-27] MEDS: OXYBUTYNIN CHLORIDE 5 MG TAB PO SCH ×3 (08:29→20:09)
[2017-02-27 08:45] VITALS: BP 130/84; PULSE 106; TEMP 36.7
[2017-02-27] MEDS ORDERED: HYDROmorphone INJ 1 MG/ML SYR ONE (09:00)
[2017-02-27] MEDS ORDERED: NURSING VERBAL MED ORDER ONE (09:20)
[2017-02-27] MEDS: INSULIN ASPART 100 UNITS/ML 3 ML PEN SC SCH ×4 (09:26→21:00)
--- NOTE | 2017-02-27 10:20 | Urology Consultation ---
History General Date of Service: Feb 27, 2017. Chief Complaint: gross hematuria Primary Care Physician: Tyler Miller Pt seen a urologist before?: Yes (Dr. Mcbride) If yes, why?: BPH History of Present Illness 86 yo male presents to [facility] from [facility] for 2 days of gross hematuria with clot retention. 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 Currently on finasteride. He is currently with a 20Fr grimes catheter in place with CBI running. Grimes draining bright brady colored urine with multiple clots and blood noted around his meatus as well. The pt c/o severe pain with bladder spasms. Per nursing reports, he has had episodes of severe pain and spasms throughout the night. Multiple attempts to irrigate grimes catheter have been made with intermittent improvement and worsening of the bleeding. Per the pt, he thinks he has had episodes of intermittent hematuria for several months. H&H this morning of 8.0 and 24.6. Receiving [address] on 02-21 negative for stone or hydro. Bladder u/s on admission negative for clots. Imaging Imaging: CT Laboratory Last 24 Hours Test 02/26/17 19:09 02/27/17 00:20 02/27/17 05:15 02/27/17 07:27 White Blood Count 4.47 K/uL 4.10 K/uL Red Blood Count 3.10 M/uL 2.60 M/uL Hemoglobin 9.2 g/dL 9.3 g/dL 8.0 g/dL Hematocrit 29.0 % 28.5 % 24.6 % Mean Corpuscular Volume 93.5 fL 94.6 fL Mean Corpuscular Hemoglobin 29.7 pg 30.8 pg Mean Corpuscular Hemoglobin Concent 31.7 g/dl 32.5 g/dl Platelet Count 91 K/uL 74 K/uL Mean Platelet Volume 10.5 fL 9.4 fL Neutrophils (%) (Auto) 64.1 % Lymphocytes (%) (Auto) 23.9 % Monocytes (%) (Auto) 9.4 % Eosinophils (%) (Auto) 2.2 % Basophils (%) (Auto) 0.2 % Neutrophils # (Auto) 2.86 K/uL Lymphocytes # (Auto) 1.07 K/uL Monocytes # (Auto) 0.42 K/uL Eosinophils # (Auto) 0.10 K/uL Basophils # (Auto) 0.01 K/uL RDW Standard Deviation 56.1 fL 56.9 fL RDW Coefficient of Variation 16.4 % 16.5 % Immature Granulocyte % (Auto) 0.2 % Immature Granulocyte # (Auto) 0.01 K/uL Platelet Estimate DECREASED Prothrombin Time 13.4 SECONDS 13.3 SECONDS Prothromb Time International Ratio 1.2 1.2 Activated Partial Thromboplast Time 25.6 SECONDS Partial Thromboplastin Ratio 1.0 Sodium Level 144 mmol/L 143 mmol/L Potassium Level 4.5 mmol/L 4.0 mmol/L Chloride Level 111 mmol/L 111 mmol/L Carbon Dioxide Level 26 mmol/L 27 mmol/L Anion Gap 7.0 mmol/L 5.0 mmol/L Blood Urea Nitrogen 44 mg/dl 40 mg/dl Creatinine 1.50 mg/dl 1.40 mg/dl Est Creatinine Clear Calc Drug Dose 31.8 ml/min 34.1 ml/min Estimated GFR () 47.5 51.6 Estimated GFR (Non- 41.0 44.5 BUN/Creatinine Ratio 29.5 28.6 Random Glucose 113 mg/dl 116 mg/dl Calcium Level 8.8 mg/dl 8.3 mg/dl Total Bilirubin 0.5 mg/dl Aspartate Amino Transf (AST/SGOT) 34 U/L Alanine Aminotransferase (ALT/SGPT) 32 U/L Alkaline Phosphatase 122 U/L Total Protein 7.3 gm/dl Albumin 3.5 gm/dl Globulin 3.8 gm/dl Albumin/Globulin Ratio 0.9 Bedside Glucose 109 mg/dl Problem List Medical Problems: (1) Aortic aneurysm Status: Acute (2) Failure of outpatient treatment Status: Acute (3) Hematuria Status: Acute (4) Hypotension Status: Acute (5) Hypoxia Status: Acute (6) Inguinal hernia Status: Acute (7) PNA (pneumonia) Status: Acute (8) Severe anemia Status: Acute (9) Thrombocytopenia Status: Acute (10) Unstable angina Status: Acute Past History A Fib, BPH, coronary artery disease, diabetes, hypertension, other (melanoma, chronic back pain, hydrocele, heart murmur) Past Surgical History: orthopedic surgery (carpal tunnel release), tonsillectomy, other (hernia repair, cataract surgery) Family History Cancer Heart disease Hypertension Social History Hx Tobacco Use In Past Year?: No Smoking: non-smoker Alcohol: never Drug use: none Marital status: Housing status: lives with significant other (At [facility]) Occupation status: retired History of MDRO No Allergies Coded Allergies: No Known Allergies (Verified , 01/02/17) Medications Home Medications: Home Meds and Scripts Medications Dose Route/Sig Max Daily Dose Days Date Category Oxycodone HCl 5 Mg Tab 5 Mg PO Q4 PRN 02/26/17 Reported Proctofoam Hc (Hydrocortisone/Pramoxine) Aer 1 Appl OH Q6 PRN 02/25/17 Reported Milk of Magnesia (Magnesium Hydroxide) 30 Ml Susp 30 Ml PO DAILY PRN 02/25/17 Reported Fleet Enema (Sodium Phosphate/Biphosphate) Amy 1 Ea [place] DAILY PRN 02/25/17 Reported Bisacodyl 10 Mg Sup 10 Mg OH DAILY PRN 02/25/17 Reported Tylenol (Acetaminophen) 650 Mg Supp 650 Mg OH Q4 PRN 02/25/17 Reported Zofran (Ondansetron HCl) 4 Mg Tab 4 Mg PO Q6 PRN 02/25/17 Reported Mag-Ox (Magnesium Oxide) 400 Mg Tab 400 Mg PO QAM 02/25/17 Reported Flonase Allergy Relief Ch (Fluticasone Propionate (Nasal)) 50 Mcg/Act Spr 2 Crucible LUIS DAILY 02/25/17 Reported Trazodone HCl 150 Mg Tab 150 Mg PO HS 02/25/17 Reported Prilosec (Omeprazole) 20 Mg Capcr 20 Mg PO BID 30 02/23/17 Rx Lasix (Furosemide) 40 Mg Tab 40 Mg PO UD PRN 02/21/17 Reported Toprol-Xl (Metoprolol Succinate) 25 Mg Tabcr 25 Mg PO Q12 02/21/17 Reported Kp Ferrous Sulfate (Ferrous Sulfate) 325 Mg Tab 325 Mg PO BID 10/18/16 Reported Tylenol (Acetaminophen) 325 Mg Tab 650 Mg PO Q4H PRN 06/27/16 Reported Vitamin C (Ascorbic Acid) 500 Mg Cap 500 Mg PO QAM 06/27/16 Reported Vitamin B6 (Pyridoxine HCl) 100 Mg Tab 100 Mg PO QAM 06/27/16 Reported Coq10 (Coenzyme Q10 (Ubidecarenone)) 100 Mg Cap 100 Mg PO QAM 06/27/16 Reported Vitamin B12 (Cyanocobalamin) 1,000 Mcg Tab 1,000 Mcg PO QAM 11/03/15 Reported Vitamin D (Cholecalciferol) 2,000 Unit Tab 2,000 Unit PO QAM 11/03/15 Reported Proscar (Finasteride) 5 Mg Tab 5 Mg PO QAM 11/03/15 Reported Allopurinol 100 Mg Tab 100 Mg PO QAM 11/03/15 Reported Inpatient Medications: Current Inpatient Medications Medications (Trade) Dose Ordered Sig/Jossie Route Start Time Stop Time Status Last Admin Dose Admin Acetaminophen (Tylenol Tab) 650 mg Q4H PRN PO 02/26/17 20:30 03/28/17 20:29 Al Hydrox/Mg Hydrox/Simethicone (Maalox Max Susp) 15 ml Q4H PRN PO 02/26/17 20:30 03/28/17 20:29 Magnesium Hydroxide (Milk Of Magnesia Susp) 30 ml Q6H PRN PO 02/26/17 20:30 03/28/17 20:29 Polyethylene (Miralax Powder Packet) 17 gm DAILY PRN PO 02/26/17 20:30 03/28/17 20:29 Ondansetron HCl (Zofran Inj) 4 mg Q6H PRN IV 02/26/17 20:30 03/28/17 20:29 Allopurinol (Zyloprim Tab) 100 mg QAM PO 02/27/17 08:00 03/29/17 08:59 02/27/17 07:38 100 MG Bisacodyl (Dulcolax Supp) 10 mg DAILY PRN [place] 02/26/17 20:30 03/28/17 20:29 Finasteride (Proscar Tab) 5 mg QAM PO 02/27/17 08:00 03/29/17 08:59 02/27/17 07:39 5 MG Fluticasone Propionate (Flonase Nasal Crucible) 1 sprays DAILY LUIS 02/27/17 08:00 03/29/17 08:59 02/27/17 07:38 1 SPRAYS Furosemide (Lasix Tab) 40 mg UD PRN PO 02/26/17 20:30 03/28/17 20:29 Magnesium Oxide (Mag-Ox Tab) 400 mg QAM PO 02/27/17 08:00 03/29/17 08:59 02/27/17 07:38 400 MG Metoprolol Succinate (Toprol Xl Tab) 25 mg Q12H PO 02/26/17 21:00 03/28/17 20:59 02/27/17 07:39 25 MG Ondansetron HCl (Zofran Tab) 4 mg Q6 PRN PO 02/26/17 20:30 03/28/17 20:29 Oxycodone HCl (Roxicodone Immediate Rel Tab) 5 mg Q4 PRN PO 02/26/17 20:30 03/12/17 20:29 02/27/17 03:04 5 MG Pyridoxine HCl (Vitamin B-6 Tab) 100 mg QAM PO 02/27/17 08:00 03/29/17 08:59 02/27/17 07:39 100 MG Ferrous Sulfate (Feosol Tab) 325 mg BID PO 02/26/17 21:00 03/28/17 20:59 02/27/17 07:39 325 MG Hydrocortisone/ Pramoxine (Proctofoam Hc) 1 gm Q6 PRN [place] 02/26/17 20:30 03/28/17 20:29 Pantoprazole Sodium (Protonix Tab) 40 mg BID PO 02/26/17 21:00 03/28/17 20:59 02/27/17 07:38 40 MG Trazodone HCl (Desyrel Tab) 150 mg HS PO 02/26/17 21:00 03/28/17 20:59 Insulin Aspart SLIDING SCALE G... ACHS SC 02/27/17 06:30 03/29/17 06:29 Sodium Chloride (1/2 Nss 1000ml) 1,000 ml @ 150 mls/hr Q6H40M IV 02/26/17 22:00 03/28/17 21:59 02/27/17 04:52 150 MLS/HR Morphine Sulfate (MoRPHine SULFATE INJ) 2 mg Q2H PRN IV 02/27/17 02:47 03/13/17 02:46 02/27/17 07:51 2 MG Oxybutynin Chloride (Ditropan Tab) 5 mg TID PO 02/27/17 08:00 03/29/17 07:59 02/27/17 08:29 5 MG Lidocaine HCl (Xylocaine Jelly 2%) 5 ml UD PRN EXT 02/27/17 08:00 03/29/17 07:59 Review of Systems Review of Systems Constitutional: No chills, No fever Eyes: No double vision Neurological: No dizzy Endocrine: No excessive thirst Gastrointestinal: + abdominal pain (suprapubic pain and bladder spasms), No nausea, No vomiting Cardiovascular: No chest pain Respiratory: No shortness of breath Skin: No rash Musculoskeletal: + arthritis Male : + blood in urine Physical Exam Vital Signs: Vital Signs Past 12 Hours Date Time Temp Pulse Resp B/P Pulse Ox O2 Delivery O2 Flow Rate FiO2 02/27/17 07:28 36.6 111 20 112/74 02/27/17 07:25 36.7 75 18 167/92 93 Room Air 02/27/17 00:00 Room Air 02/26/17 23:08 36.7 102 20 147/89 99 Room Air 02/26/17 21:05 36.7 102 20 147/89 99 Room Air 02/26/17 20:57 75 20 105/63 93 Room Air Physical Exam: General Appearance: + moderate distress, + severe distress (crying out with pain with bladder spasms) Eyes: bilateral eyes normal inspection ENT: hearing grossly normal Neck: no JVD Respiratory/Chest: no respiratory distress, no accessory muscle use Cardiovascular: no JVD Extremities: normal inspection Neurologic/Psychiatric: alert, normal mood/affect, oriented x 3 Skin: normal color Assessment & Plan Assessment & Plan A/P: Gross hematuria Grimes catheter irrigated by Dr. Brooks this morning. Significant clot return noted. Draining brady colored urine. Continue CBI for now. Hand irrigate PRN. Pain management per primary service. I have added oxybutynin for bladder spasms. Continue finasteride. Continue to monitor H&H. Transfusions PRN. Thanks for the consult. Will continue to follow along with primary service. The pt was seen and assessed with Dr. Brooks this morning.
--- NOTE | 2017-02-27 10:23 | Progress Note ---
Progress Note Date of Service Feb 27, 2017. 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 CBI running - with relatively clear urine in the tubing, however, he had notable amounts of clot on a towel around the penis and darker urine in the bag - manual irrigation attempted with successful irrigation of ~200cc of old clot - confirmed catheter positioning after taking down the balloon and irrigating with the balloon down and repositioning the catheter. - urine cleared to a light pink color. - he received a blood transfusion shortly before my evaluation - he also received dilaudid and was relatively comfortable appearing - plan for continued CBI and observation now - if further hemoglobin drop or clot irrigation, we will have to consider possible clot evacuation and fulguration - he has a moderately large abdominal aortic aneurysm, and in turn, BP control will be paramount
--- NOTE | 2017-02-27 10:38 | Clinical Documentation Query ---
QUERY 1 OF [address] CASPER, In your clinical opinion is this patient being managed for: (Y ) Acute blood loss anemia ( ) Other explanation of clinical findings (Please Explain) ( ) Unable to determine (Please Define) ( ) Need to Discuss ( ) Not Agree The medical record reflects the following clinical findings, treatment, and risk factors. Clinical Indicators: 86 yo male presenting with persistent hematuria. Hgb 9.2, Hct 29, dropping to Hgb 8.0/Hct 24.6 on repeat Treatment:1U PRBC, CBI, urology consult, monitor H/H's Risk Factors: hematuria QUERY 2 OF 2 In your clinical opinion does this patient have: (x ) Chronic kidney disease, stage 3-4 ( ) Other explanation of clinical findings (Please Explain) ( ) Unable to determine (Please Define) ( ) Need to Discuss ( ) Not Agree The medical record reflects the following clinical findings, treatment, and risk factors. Clinical Indicators: H/P indicates pt with CKD with stable renal function since Dec 2015. GFR range is 27-49. Prior admission indicates pt with CKD stage 3-4 Treatment: avoid nephrotoxins, monitor PRP's Risk Factors: age, HTN, A fib, DM Please clarify and document your clinical opinion in the progress notes and discharge summary. Terms such as "probable", "suspected", "likely", "questionable", "possible", or "still to be ruled out" are acceptable. IF IN AGREEMENT, YOU MUST DOCUMENT ABOVE DIAGNOSTIC STATEMENT IN DAILY PROGRESS NOTES AND DISCHARGE SUMMARY. This document is not part of the patient's record. Thank You, Alexia Rios, RN [phone]
--- NOTE | 2017-02-27 10:40 | Clinical Documentation Query ---
QUERY 1 OF [address] HICKS, In your clinical opinion is this patient being managed for: (X) Acute blood loss anemia ( ) Other explanation of clinical findings (Please Explain) ( ) Unable to determine (Please Define) ( ) Need to Discuss ( ) Not Agree The medical record reflects the following clinical findings, treatment, and risk factors. Clinical Indicators: 86 yo male presenting with persistent hematuria. Hgb 9.2, Hct 29, dropping to Hgb 8.0/Hct 24.6 on repeat Treatment:1U PRBC, CBI, urology consult, monitor H/H's Risk Factors: hematuria QUERY 2 OF 2 In your clinical opinion does this patient have: (X) Chronic kidney disease, stage 3-4 ( ) Other explanation of clinical findings (Please Explain) ( ) Unable to determine (Please Define) ( ) Need to Discuss ( ) Not Agree The medical record reflects the following clinical findings, treatment, and risk factors. Clinical Indicators: H/P indicates pt with CKD with stable renal function since Dec 2015. GFR range is 27-49. Prior admission indicates pt with CKD stage 3-4 Treatment: avoid nephrotoxins, monitor PRP's Risk Factors: age, HTN, A fib, DM Please clarify and document your clinical opinion in the progress notes and discharge summary. Terms such as "probable", "suspected", "likely", "questionable", "possible", or "still to be ruled out" are acceptable. IF IN AGREEMENT, YOU MUST DOCUMENT ABOVE DIAGNOSTIC STATEMENT IN DAILY PROGRESS NOTES AND DISCHARGE SUMMARY. This document is not part of the patient's record. Thank You, Alexia Rios, RN [phone]
--- NOTE | 2017-02-27 11:04 | Family Medicine Progress Note ---
Progress Note Date of Service Feb 27, 2017. Subjective Pt evaluation today including: conversation w/ patient, physical exam, chart review, lab review, review of studies, conversation w/ clothing consultant, review of inpatient medication list Pain: significant pain with urination, PO Intake: NPO Voiding: grimes catheter in place Per nurse, patient has significant pain with urination, gross hematuria with passage of clots. Per patient, some improvement with pain medication. Patient remains on Continuous Bladder Irrigation. Pt denies fevers, chest pain, shortness of breath, nausea, vomiting, diarrhea, and melena. Constitutional: No chills, No fever Respiratory: No cough, No shortness of breath, No wheezing Cardiovascular: No chest pain, No edema, No palpitations Abdomen: No constipation, No diarrhea, No nausea, No pain, No vomiting Male : + dysuria, + hematuria, No urinary frequency Heme: + abnormal bleeding/bruising Skin: No itch, No rash Medications Current Inpatient Medications Medications (Trade) Dose Ordered Sig/Jossie Route Start Time Stop Time Status Last Admin Dose Admin Acetaminophen (Tylenol Tab) 650 mg Q4H PRN PO 02/26/17 20:30 03/28/17 20:29 Al Hydrox/Mg Hydrox/Simethicone (Maalox Max Susp) 15 ml Q4H PRN PO 02/26/17 20:30 03/28/17 20:29 Magnesium Hydroxide (Milk Of Magnesia Susp) 30 ml Q6H PRN PO 02/26/17 20:30 03/28/17 20:29 Polyethylene (Miralax Powder Packet) 17 gm DAILY PRN PO 02/26/17 20:30 03/28/17 20:29 Ondansetron HCl (Zofran Inj) 4 mg Q6H PRN IV 02/26/17 20:30 03/28/17 20:29 Allopurinol (Zyloprim Tab) 100 mg QAM PO 02/27/17 08:00 03/29/17 08:59 02/27/17 07:38 100 MG Bisacodyl (Dulcolax Supp) 10 mg DAILY PRN [place] 02/26/17 20:30 03/28/17 20:29 Finasteride (Proscar Tab) 5 mg QAM PO 02/27/17 08:00 03/29/17 08:59 02/27/17 07:39 5 MG Fluticasone Propionate (Flonase Nasal [place]) 1 sprays DAILY LUIS 02/27/17 08:00 03/29/17 08:59 02/27/17 07:38 1 SPRAYS Furosemide (Lasix Tab) 40 mg UD PRN PO 02/26/17 20:30 03/28/17 20:29 Magnesium Oxide (Mag-Ox Tab) 400 mg QAM PO 02/27/17 08:00 03/29/17 08:59 02/27/17 07:38 400 MG Metoprolol Succinate (Toprol Xl Tab) 25 mg Q12H PO 02/26/17 21:00 03/28/17 20:59 02/27/17 07:39 25 MG Ondansetron HCl (Zofran Tab) 4 mg Q6 PRN PO 02/26/17 20:30 03/28/17 20:29 Oxycodone HCl (Roxicodone Immediate Rel Tab) 5 mg Q4 PRN PO 02/26/17 20:30 03/12/17 20:29 02/27/17 03:04 5 MG Pyridoxine HCl (Vitamin B-6 Tab) 100 mg QAM PO 02/27/17 08:00 03/29/17 08:59 02/27/17 07:39 100 MG Ferrous Sulfate (Feosol Tab) 325 mg BID PO 02/26/17 21:00 03/28/17 20:59 02/27/17 07:39 325 MG Hydrocortisone/ Pramoxine (Proctofoam Hc) 1 gm Q6 PRN NV 02/26/17 20:30 03/28/17 20:29 Pantoprazole Sodium (Protonix Tab) 40 mg BID PO 02/26/17 21:00 03/28/17 20:59 02/27/17 07:38 40 MG Trazodone HCl (Desyrel Tab) 150 mg HS PO 02/26/17 21:00 03/28/17 20:59 Insulin Aspart SLIDING SCALE G... ACHS SC 02/27/17 06:30 03/29/17 06:29 Sodium Chloride (1/2 Nss 1000ml) 1,000 ml @ 150 mls/hr Q6H40M IV 02/26/17 22:00 03/28/17 21:59 02/27/17 04:52 150 MLS/HR Morphine Sulfate (MoRPHine SULFATE INJ) 2 mg Q2H PRN IV 02/27/17 02:47 03/13/17 02:46 02/27/17 07:51 2 MG Oxybutynin Chloride (Ditropan Tab) 5 mg TID PO 02/27/17 08:00 03/29/17 07:59 02/27/17 08:29 5 MG Lidocaine HCl (Xylocaine Jelly 2%) 5 ml UD PRN EXT 02/27/17 08:00 03/29/17 07:59 Objective Vital Signs Date Time Temp Pulse Resp B/P Pulse Ox O2 Delivery O2 Flow Rate FiO2 02/27/17 07:28 36.6 111 20 112/74 02/27/17 07:25 36.7 75 18 167/92 93 Room Air 02/27/17 00:00 Room Air 02/26/17 23:08 36.7 102 20 147/89 99 Room Air 02/26/17 21:05 36.7 102 20 147/89 99 Room Air 02/26/17 20:57 75 20 105/63 93 Room Air 02/26/17 19:45 89 18 150/96 93 Room Air 02/26/17 18:01 37.2 72 14 113/75 94 Room Air Physical Exam General Appearance: WD/WN, no apparent distress Eyes: normal inspection, PERRL, EOMI Neck: supple, no carotid bruits, trachea midline Respiratory/Chest: lungs clear, normal breath sounds, no respiratory distress Cardiovascular: regular rate, rhythm, no murmur Abdomen: normal bowel sounds, non tender, soft Neurologic/Psychiatric: alert, normal mood/affect Skin: normal color, warm/dry Laboratory Results Results Past 24 Hours Test 02/26/17 19:09 02/27/17 00:20 02/27/17 05:15 02/27/17 07:27 Range/Units White Blood Count 4.47 4.10 4.8-10.8 K/uL Red Blood Count 3.10 2.60 4.7-6.1 M/uL Hemoglobin 9.2 9.3 8.0 14.0-18.0 g/dL Hematocrit 29.0 28.5 24.6 42-52 % Mean Corpuscular Volume 93.5 94.6 80-100 fL Mean Corpuscular Hemoglobin 29.7 30.8 25-34 pg Mean Corpuscular Hemoglobin Concent 31.7 32.5 32-36 g/dl Platelet Count 91 74 130-400 K/uL Mean Platelet Volume 10.5 9.4 7.4-10.4 fL Neutrophils (%) (Auto) 64.1 % Lymphocytes (%) (Auto) 23.9 % Monocytes (%) (Auto) 9.4 % Eosinophils (%) (Auto) 2.2 % Basophils (%) (Auto) 0.2 % Neutrophils # (Auto) 2.86 1.4-6.5 K/uL Lymphocytes # (Auto) 1.07 1.2-3.4 K/uL Monocytes # (Auto) 0.42 0.11-0.59 K/uL Eosinophils # (Auto) 0.10 0-0.5 K/uL Basophils # (Auto) 0.01 0-0.2 K/uL RDW Standard Deviation 56.1 56.9 36.4-46.3 fL RDW Coefficient of Variation 16.4 16.5 11.5-14.5 % Immature Granulocyte % (Auto) 0.2 % Immature Granulocyte # (Auto) 0.01 0.00-0.02 K/uL Platelet Estimate DECREASED Prothrombin Time 13.4 13.3 9.0-12.0 SECONDS Prothromb Time International Ratio 1.2 1.2 0.9-1.1 Activated Partial Thromboplast Time 25.6 21.0-31.0 SECONDS Partial Thromboplastin Ratio 1.0 Sodium Level 144 143 136-145 mmol/L Potassium Level 4.5 4.0 3.5-5.1 mmol/L Chloride Level 111 111 98-107 mmol/L Carbon Dioxide Level 26 27 21-32 mmol/L Anion Gap 7.0 5.0 3-11 mmol/L Blood Urea Nitrogen 44 40 7-18 mg/dl Creatinine 1.50 1.40 0.60-1.40 mg/dl Est Creatinine Clear Calc Drug Dose 31.8 34.1 ml/min Estimated GFR () 47.5 51.6 Estimated GFR (Non- 41.0 44.5 BUN/Creatinine Ratio 29.5 28.6 10-20 Random Glucose 113 116 70-99 mg/dl Calcium Level 8.8 8.3 8.5-10.1 mg/dl Total Bilirubin 0.5 0.2-1 mg/dl Aspartate Amino Transf (AST/SGOT) 34 15-37 U/L Alanine Aminotransferase (ALT/SGPT) 32 12-78 U/L Alkaline Phosphatase 122 45-117 U/L Total Protein 7.3 6.4-8.2 gm/dl Albumin 3.5 3.4-5.0 gm/dl Globulin 3.8 2.5-4.0 gm/dl Albumin/Globulin Ratio 0.9 0.9-2 Bedside Glucose 109 70-99 mg/dl Test 02/27/17 11:00 Range/Units Assessment and Plan Gross hematuria - Follow serial h/h -Transfuse if Hbg <8 - Maintain Continuous Bladder irrigation catheter placed - Urology completed irrigation and manual clot removal - Morphine 2 mg every 4 hours -Urology considering further clot evacuation and fulguration tmr Chronic kidney disease - Creatinine stable, 1.4 <--1.5 - Continue to monitor daily BMP Abdominal aortic aneurysm - CT 02/21: stable 51 mm infrarenal AAA - stable asx, - will wait for urology to evaluate bladder prior to possible further evaluation Atrial Fibrillation - Continue metoprolol - Remains rate controlled - Anticoagulation held Coronary Artery Disease -Con't metoprolol - Not on aspirin or statin Diabetes - sliding scale - Every 6 hour blood sugars as patient is nothing by mouth Hypertension - Continue metoprolol DVT prophylaxis - SCD - Anticoagulation held for bleeding CODE STATUS - DO NOT RESUSCITATE [facility]; - plan to return to [facility] Physician Supervision Note: I was present with Dr. Lilly during the history and exam. I discussed the case with the resident and agree with the findings and plan as documented in the note. Any exceptions or clarifications are listed here: Upon my exam, the patient was resting comfortably; he was actually sleeping but awakens to voice. His pain seems better controlled compared to what nursing describes earlier today. His urine appears bloody; he has some blood leaking around his Grimes; there is also a few clots that of past outside of the Grimes catheter. We'll continue bladder irrigation; monitor hemoglobin; transfuse to keep greater than 8. Urology consultation appreciated. Documented By: Omid Canales Continued [facility] stay due to: other (gross hematuria, anemia) Resident Tracking Resident Involvement: Resident Care Provided Care Provided: Adult [facility] Medicine
[2017-02-27 11:26] LABS: HEMATOCRIT 27.2 % (42-52)
[2017-02-27 14:45] VITALS: BP 119/81; PULSE 81; TEMP 36.6; O2SAT 98
[2017-02-27 17:07] LABS: HEMATOCRIT 26.9 % (42-52)
[2017-02-27] MEDS: TRAZODONE HCL 50 MG TAB PO SCH (20:10)
[2017-02-27 23:18] LABS: HEMATOCRIT 25.8 % (42-52)
[2017-02-28] VITALS (7 sets, daily range): BP systolic 107–129; BP diastolic 66–82; PULSE 63–81; TEMP 36.6–37; O2SAT 90–97
[2017-02-28] MEDS: SODIUM CHLORIDE 0.45% 1000ML 1,000 ML IV SCH ×3 (05:23→20:26)
[2017-02-28 07:09] LABS: MEAN CELL VOLUME 93.4 fL (80-100); MEAN CORPUSCULAR HGB CONC 32.1 g/dl (32-36); RED BLOOD COUNT 2.57 M/uL (4.7-6.1)
[2017-02-28 07:14] LABS: MEAN PLATELET VOLUME 10.8 fL (7.4-10.4); PLATELET COUNT 74 K/uL (130-400)
--- NOTE | 2017-02-28 07:31 | Progress Note ---
Subjective Date of Service: Feb 28, 2017. Subjective Pt evaluation today including: chart review, lab review Voiding: grimes catheter in place (patent, draining clear, yellow urine with CBI running) 86 yo male with gross hematuria. Per nursing, grimes irrigated for large amount of clot overnight. Currently draining clear, yellow urine with CBI running. H&H dropped to 7.7 and 24.0 this morning. Pt sleeping this morning, and not disturbed. Problem List Medical Problems: (1) Aortic aneurysm Status: Acute (2) Failure of outpatient treatment Status: Acute (3) Hematuria Status: Acute (4) Hypotension Status: Acute (5) Hypoxia Status: Acute (6) Inguinal hernia Status: Acute (7) PNA (pneumonia) Status: Acute (8) Severe anemia Status: Acute (9) Thrombocytopenia Status: Acute (10) Unstable angina Status: Acute Review of Systems Pt sleeping, and not disturbed. Objective Vital Signs Date Time Temp Pulse Resp B/P Pulse Ox O2 Delivery O2 Flow Rate FiO2 02/28/17 07:18 36.8 67 18 108/69 96 Room Air 02/28/17 01:02 37.0 78 20 107/66 90 Room Air 02/28/17 00:00 Room Air 02/27/17 20:00 Room Air 02/27/17 17:15 Room Air 02/27/17 14:45 36.6 81 18 119/81 98 Room Air 02/27/17 11:26 Room Air 02/27/17 08:45 36.7 106 18 130/84 02/27/17 08:15 36.7 111 20 132/86 02/27/17 07:45 36.6 118 18 109/72 02/27/17 07:28 36.6 111 20 112/74 Physical Exam General Appearance: no apparent distress Eyes: normal inspection ENT: hearing grossly normal Neck: no JVD Respiratory/Chest: no respiratory distress, no accessory muscle use Cardiovascular: no JVD Extremities: normal inspection Neurologic/Psychiatric: + pertinent finding (Pt sleeping. ) Skin: normal color Laboratory Results Last 24 Hours Test 02/27/17 11:15 02/27/17 11:28 02/27/17 16:21 02/27/17 16:50 Hemoglobin 8.7 g/dL 8.3 g/dL Hematocrit 27.2 % 26.9 % Bedside Glucose 113 mg/dl 109 mg/dl Test 02/27/17 20:18 02/27/17 23:10 02/28/17 06:20 Bedside Glucose 106 mg/dl Hemoglobin 8.3 g/dL 7.7 g/dL Hematocrit 25.8 % 24.0 % White Blood Count 3.60 K/uL Red Blood Count 2.57 M/uL Mean Corpuscular Volume 93.4 fL Mean Corpuscular Hemoglobin 30.0 pg Mean Corpuscular Hemoglobin Concent 32.1 g/dl RDW Standard Deviation 56.5 fL RDW Coefficient of Variation 16.6 % Platelet Count 74 K/uL Mean Platelet Volume 10.8 fL Assessment and Plan A/P: Gross hematuria AFVSS. Hematuria improved this morning. Will leave CBI running for now. Transfuse PRN per primary service. Continue to monitor H&H. Will also keep him NPO. Call for worsening bleeding again. May need to go to OR for cysto and clot evac if bleeding persists and continues to need transfusion. Will continue to follow along with primary service at this time. Continued [facility] stay due to: other (gross hematuria, anemia)
[2017-02-28 07:46] LABS: CREATININE 1.3 mg/dl (0.60-1.40); POTASSIUM 3.8 mmol/L (3.5-5.1)
[2017-02-28] MEDS: FERROUS SULFATE 325 MG TAB PO SCH ×2 (08:00→20:28)
[2017-02-28] MEDS: ALLOPURINOL 100 MG TAB PO SCH (08:00)
[2017-02-28] MEDS: METOPROLOL SUCC 25MG EXT REL TAB PO SCH ×2 (08:01→20:30)
[2017-02-28] MEDS: PANTOprazole SOD 40 MG TAB PO SCH ×2 (08:01→20:28)
[2017-02-28] MEDS: OXYBUTYNIN CHLORIDE 5 MG TAB PO SCH ×3 (08:01→20:29)
[2017-02-28] MEDS: MAGNESIUM OXIDE 400 MG TAB PO SCH (08:01)
[2017-02-28] MEDS: FLUTICASONE PROPIONATE NA SPR 16 GM BTL NAE SCH (08:02)
[2017-02-28] MEDS: PYRIDOXINE HCL 50 MG TAB PO SCH (08:02)
[2017-02-28] MEDS: FINASTERIDE 5 MG TAB PO SCH (08:02)
[2017-02-28] MEDS: INSULIN ASPART 100 UNITS/ML 3 ML PEN SC SCH ×4 (08:02→21:00)
--- NOTE | 2017-02-28 11:30 | Family Medicine Progress Note ---
Progress Note Date of Service Feb 28, 2017. Subjective Pt evaluation today including: conversation w/ patient, physical exam, chart review, lab review, review of studies, review of inpatient medication list Pain: suprapubic pain Patient reported pain significantly improved thought still has some suprapubic pain. Per nurse, clots removed overnight from catheter. Per nurse, as of this morning no gross blood from catheter. Patient denies fevers, chills, STILL, N/V, diarrhea, constipation. Constitutional: No chills, No fever, No weakness Respiratory: No cough, No hemoptysis, No shortness of breath Cardiovascular: No chest pain Abdomen: + problem reported (suprapubic pain), No constipation, No diarrhea , No nausea, No vomiting Male : + dysuria, + hematuria, No urinary frequency Skin: No bleeding, No itch, No rash Medications Current Inpatient Medications Medications (Trade) Dose Ordered Sig/Jossie Route Start Time Stop Time Status Last Admin Dose Admin Acetaminophen (Tylenol Tab) 650 mg Q4H PRN PO 02/26/17 20:30 03/28/17 20:29 Al Hydrox/Mg Hydrox/Simethicone (Maalox Max Susp) 15 ml Q4H PRN PO 02/26/17 20:30 03/28/17 20:29 Magnesium Hydroxide (Milk Of Magnesia Susp) 30 ml Q6H PRN PO 02/26/17 20:30 03/28/17 20:29 Polyethylene (Miralax Powder Packet) 17 gm DAILY PRN PO 02/26/17 20:30 03/28/17 20:29 Ondansetron HCl (Zofran Inj) 4 mg Q6H PRN IV 02/26/17 20:30 03/28/17 20:29 Allopurinol (Zyloprim Tab) 100 mg QAM PO 02/27/17 08:00 03/29/17 08:59 02/28/17 08:00 100 MG Bisacodyl (Dulcolax Supp) 10 mg DAILY PRN [place] 02/26/17 20:30 03/28/17 20:29 Finasteride (Proscar Tab) 5 mg QAM PO 02/27/17 08:00 03/29/17 08:59 02/28/17 08:02 5 MG Fluticasone Propionate (Flonase Nasal [place]) 1 sprays DAILY LUIS 02/27/17 08:00 03/29/17 08:59 02/28/17 08:02 1 SPRAYS Furosemide (Lasix Tab) 40 mg UD PRN PO 02/26/17 20:30 03/28/17 20:29 Magnesium Oxide (Mag-Ox Tab) 400 mg QAM PO 02/27/17 08:00 03/29/17 08:59 02/28/17 08:01 400 MG Metoprolol Succinate (Toprol Xl Tab) 25 mg Q12H PO 02/26/17 21:00 03/28/17 20:59 02/28/17 08:01 25 MG Ondansetron HCl (Zofran Tab) 4 mg Q6 PRN PO 02/26/17 20:30 03/28/17 20:29 Oxycodone HCl (Roxicodone Immediate Rel Tab) 5 mg Q4 PRN PO 02/26/17 20:30 03/12/17 20:29 02/27/17 03:04 5 MG Pyridoxine HCl (Vitamin B-6 Tab) 100 mg QAM PO 02/27/17 08:00 03/29/17 08:59 02/28/17 08:02 100 MG Ferrous Sulfate (Feosol Tab) 325 mg BID PO 02/26/17 21:00 03/28/17 20:59 02/28/17 08:00 325 MG Hydrocortisone/ Pramoxine (Proctofoam Hc) 1 gm Q6 PRN [place] 02/26/17 20:30 03/28/17 20:29 Pantoprazole Sodium (Protonix Tab) 40 mg BID PO 02/26/17 21:00 03/28/17 20:59 02/28/17 08:01 40 MG Trazodone HCl (Desyrel Tab) 150 mg HS PO 02/26/17 21:00 03/28/17 20:59 02/27/17 20:10 150 MG Insulin Aspart SLIDING SCALE G... ACHS SC 02/27/17 06:30 03/29/17 06:29 Sodium Chloride (1/2 Nss 1000ml) 1,000 ml @ 150 mls/hr Q6H40M IV 02/26/17 22:00 03/28/17 21:59 02/28/17 05:23 150 MLS/HR Morphine Sulfate (MoRPHine SULFATE INJ) 2 mg Q2H PRN IV 02/27/17 02:47 03/13/17 02:46 02/27/17 07:51 2 MG Oxybutynin Chloride (Ditropan Tab) 5 mg TID PO 02/27/17 08:00 03/29/17 07:59 02/28/17 08:01 5 MG Lidocaine HCl (Xylocaine Jelly 2%) 5 ml UD PRN EXT 02/27/17 08:00 03/29/17 07:59 Objective Vital Signs Date Time Temp Pulse Resp B/P Pulse Ox O2 Delivery O2 Flow Rate FiO2 02/28/17 10:32 37.0 72 18 112/72 02/28/17 10:00 36.8 71 18 125/77 02/28/17 09:05 37.0 81 18 129/82 02/28/17 08:49 36.9 69 18 116/72 02/28/17 07:18 36.8 67 18 108/69 96 Room Air 02/28/17 01:02 37.0 78 20 107/66 90 Room Air 02/28/17 00:00 Room Air 02/27/17 20:00 Room Air 02/27/17 17:15 Room Air 02/27/17 14:45 36.6 81 18 119/81 98 Room Air 02/27/17 11:26 Room Air Physical Exam General Appearance: WD/WN, no apparent distress Eyes: normal inspection Respiratory/Chest: lungs clear, normal breath sounds, no respiratory distress Cardiovascular: regular rate, rhythm, no edema, + systolic murmur, + normal peripheral pulses Abdomen: normal bowel sounds, soft, + tenderness (suprapubic), + pertinent finding (Grimes in place with CBI, , Urine from catheter contained no gross blood ) Extremities: normal range of motion, non-tender, normal inspection Neurologic/Psychiatric: alert, normal mood/affect, oriented x 3 Skin: normal color, warm/dry, no rash Laboratory Results Results Past 24 Hours Test 02/27/17 11:28 02/27/17 16:21 02/27/17 16:50 02/27/17 20:18 Range/Units Bedside Glucose 113 109 106 70-99 mg/dl Hemoglobin 8.3 14.0-18.0 g/dL Hematocrit 26.9 42-52 % Test 02/27/17 23:10 02/28/17 06:20 02/28/17 07:24 02/28/17 10:44 Range/Units Hemoglobin 8.3 7.7 14.0-18.0 g/dL Hematocrit 25.8 24.0 42-52 % White Blood Count 3.60 4.8-10.8 K/uL Red Blood Count 2.57 4.7-6.1 M/uL Mean Corpuscular Volume 93.4 80-100 fL Mean Corpuscular Hemoglobin 30.0 25-34 pg Mean Corpuscular Hemoglobin Concent 32.1 32-36 g/dl RDW Standard Deviation 56.5 36.4-46.3 fL RDW Coefficient of Variation 16.6 11.5-14.5 % Platelet Count 74 130-400 K/uL Mean Platelet Volume 10.8 7.4-10.4 fL Sodium Level 139 136-145 mmol/L Potassium Level 3.8 3.5-5.1 mmol/L Chloride Level 110 98-107 mmol/L Carbon Dioxide Level 22 21-32 mmol/L Anion Gap 7.0 3-11 mmol/L Blood Urea Nitrogen 32 7-18 mg/dl Creatinine 1.30 0.60-1.40 mg/dl Est Creatinine Clear Calc Drug Dose 36.7 ml/min Estimated GFR () 56.5 Estimated GFR (Non- 48.7 BUN/Creatinine Ratio 25.0 10-20 Random Glucose 88 70-99 mg/dl Calcium Level 8.0 8.5-10.1 mg/dl Bedside Glucose 95 70-99 mg/dl Assessment and Plan Documented By: Omid Canales 86 yo M w/ hx of Afib, AA, CAD, HTL, p/w hematuria and pain with urination, anemia. VSS s/p transfusion [address] with Continuous Bladder irrigation Gross hematuria, Anemia Hb 7.7 <--8.3, transfused 1 unit this morning. -asx for anemia - Follow serial h/h -Transfuse if Hbg <8 - Maintain Continuous Bladder irrigation catheter placed - Nursing completed irrigation and manual clot removal overnight - Continue Morphine 2 mg every 4 hours -Urology considering further fulguration -NPO after midnight Chronic kidney disease - Creatinine improved, 1.3 <-1.4 <--1.5 - Continue to monitor daily BMP Abdominal aortic aneurysm - CT 02/21: stable 51 mm infrarenal AAA - stable asx, - will wait for urology to evaluate bladder prior to possible further evaluation Atrial Fibrillation - Continue metoprolol - Remains rate controlled - Anticoagulation held Coronary Artery Disease -Con't metoprolol - Not on aspirin or statin Diabetes - sliding scale - Every 6 hour blood sugars as patient is nothing by mouth Hypertension - Continue metoprolol DVT prophylaxis - SCD - Anticoagulation held for bleeding CODE STATUS - DO NOT RESUSCITATE Disposition - [facility] - PT/OT; - plan to return to [facility] Physician Supervision Note: I interviewed and examined the patient. Discussed with Dr. Del Real and agree with findings and plan as documented in the note. Any exceptions or clarifications are listed here: When I saw patient, he was out of bed, seated in a chair, and reading a newspaper. He denied complaints at present. Grimes with yellow urine, a marked improvement compared to yesterday. Patient transfused 1 unit this morning for a HgB less than 8. Repeat HgB drawn when I was in the room with results pending. PLAN 1) Continue bladder irrigation. 2) NPO after MN 3) Monitor HgB, transfuse to keep greater than 8. Discharge planning: other ([facility]) Resident Tracking Resident Involvement: Resident Care Provided Care Provided: Adult Hospital Medicine
[2017-02-28 12:36] LABS: HEMATOCRIT 30.3 % (42-52)
[2017-02-28 17:59] LABS: HEMATOCRIT 28.3 % (42-52)
[2017-02-28] MEDS: TRAZODONE HCL 50 MG TAB PO SCH (20:28)
[2017-02-28] MEDS: MoRPHine SULFATE 2 MG/ML CARP IV PRN (21:22)
[2017-02-28 22:47] LABS: HEMATOCRIT 28.3 % (42-52)
[2017-03-01 00:17] VITALS: BP 113/74; PULSE 83; TEMP 36.4; O2SAT 95
[2017-03-01] MEDS ORDERED: SODIUM CHLORIDE 0.65% NA SOLN 45 ML (OCEAN) ONE (02:36)
[2017-03-01] MEDS: SODIUM CHLORIDE 0.45% 1000ML 1,000 ML IV SCH ×3 (03:21→15:47)
[2017-03-01 06:27] LABS: HEMATOCRIT 25.9 % (42-52); MEAN CELL VOLUME 92.2 fL (80-100); MEAN CORPUSCULAR HEMOGLOBIN 30.2 pg (25-34); MEAN CORPUSCULAR HGB CONC 32.8 g/dl (32-36); RED BLOOD COUNT 2.81 M/uL (4.7-6.1); WHITE BLOOD COUNT 3.87 K/uL (4.8-10.8)
[2017-03-01 06:28] LABS: MEAN PLATELET VOLUME 10.7 fL (7.4-10.4); PLATELET COUNT 70 K/uL (130-400)
[2017-03-01 06:42] LABS: BUN/CREATININE RATIO 23.5 (10-20); CALCIUM 7.8 mg/dl (8.5-10.1); CREATININE 1.4 mg/dl (0.60-1.40); POTASSIUM 3.8 mmol/L (3.5-5.1)
--- NOTE | 2017-03-01 08:24 | Progress Note ---
Subjective Date of Service: Mar 01, 2017. Subjective Pt evaluation today including: conversation w/ patient, chart review, lab review Voiding: grimes catheter in place (patent, draining clear, yellow urine with CBI running ) 86 yo male with gross hematuria. Pt denies pain this morning. Hematuria improved. Grimes draining clear, yellow urine with CBI running. H&H 8.5 and 25.9 this morning. Problem List Medical Problems: (1) Aortic aneurysm Status: Acute (2) Failure of outpatient treatment Status: Acute (3) Hematuria Status: Acute (4) Hypotension Status: Acute (5) Hypoxia Status: Acute (6) Inguinal hernia Status: Acute (7) PNA (pneumonia) Status: Acute (8) Severe anemia Status: Acute (9) Thrombocytopenia Status: Acute (10) Unstable angina Status: Acute Review of Systems Constitutional: No chills, No fever Respiratory: No shortness of breath Cardiac: No chest pain Abdomen: No nausea, No pain, No vomiting Male : No hematuria Heme: No abnormal bleeding/bruising Objective Vital Signs Date Time Temp Pulse Resp B/P Pulse Ox O2 Delivery O2 Flow Rate FiO2 03/01/17 00:17 36.4 83 16 113/74 95 Room Air 03/01/17 00:15 Room Air 02/28/17 17:01 Room Air 02/28/17 15:34 36.6 63 18 112/72 97 Room Air 02/28/17 10:32 37.0 72 18 112/72 02/28/17 10:00 36.8 71 18 125/77 02/28/17 10:00 Room Air 02/28/17 09:05 37.0 81 18 129/82 02/28/17 08:49 36.9 69 18 116/72 Physical Exam General Appearance: no apparent distress Eyes: normal inspection ENT: hearing grossly normal Neck: no JVD Respiratory/Chest: no respiratory distress, no accessory muscle use Cardiovascular: no JVD Extremities: normal inspection Neurologic/Psychiatric: alert, normal mood/affect, oriented x 3 Skin: normal color Laboratory Results Last 24 Hours Test 02/28/17 11:12 02/28/17 12:21 02/28/17 16:49 02/28/17 17:12 Bedside Glucose 102 mg/dl 107 mg/dl Hemoglobin 9.7 g/dL 9.1 g/dL Hematocrit 30.3 % 28.3 % Test 02/28/17 20:04 02/28/17 22:35 03/01/17 05:46 03/01/17 07:55 Bedside Glucose 139 mg/dl 106 mg/dl Hemoglobin 9.2 g/dL 8.5 g/dL Hematocrit 28.3 % 25.9 % White Blood Count 3.87 K/uL Red Blood Count 2.81 M/uL Mean Corpuscular Volume 92.2 fL Mean Corpuscular Hemoglobin 30.2 pg Mean Corpuscular Hemoglobin Concent 32.8 g/dl RDW Standard Deviation 56.1 fL RDW Coefficient of Variation 16.6 % Platelet Count 70 K/uL Mean Platelet Volume 10.7 fL Sodium Level 139 mmol/L Potassium Level 3.8 mmol/L Chloride Level 110 mmol/L Carbon Dioxide Level 22 mmol/L Anion Gap 7.0 mmol/L Blood Urea Nitrogen 33 mg/dl Creatinine 1.40 mg/dl Est Creatinine Clear Calc Drug Dose 34.1 ml/min Estimated GFR () 51.6 Estimated GFR (Non- 44.5 BUN/Creatinine Ratio 23.5 Random Glucose 101 mg/dl Calcium Level 7.8 mg/dl Assessment and Plan A/P: Gross hematuria AFVSS. Hematuria improved this morning. Will clamp CBI today. Restart CBI if bleeding restarts. Consider trial of void tomorrow if urine remains clear. Transfuse PRN per primary service. Continue to monitor H&H. Will provide a diet today. Avoid OR for now. Will eventually need cysto as outpatient to complete evaluation for hematuria. Will continue to follow along with primary service at this time. Continued [facility] stay due to: other (gross hematuria, anemia) Discharge planning: other ([facility])
[2017-03-01 08:30] VITALS: BP 105/69; PULSE 61; TEMP 36.3; O2SAT 97
[2017-03-01] MEDS: FLUTICASONE PROPIONATE NA SPR 16 GM BTL NAE SCH (09:15)
[2017-03-01] MEDS: FINASTERIDE 5 MG TAB PO SCH (09:15)
[2017-03-01] MEDS: MAGNESIUM OXIDE 400 MG TAB PO SCH (09:15)
[2017-03-01] MEDS: PYRIDOXINE HCL 50 MG TAB PO SCH (09:15)
[2017-03-01] MEDS: OXYBUTYNIN CHLORIDE 5 MG TAB PO SCH ×3 (09:16→19:23)
[2017-03-01] MEDS: PANTOprazole SOD 40 MG TAB PO SCH ×2 (09:16→19:23)
[2017-03-01] MEDS: ALLOPURINOL 100 MG TAB PO SCH (09:16)
[2017-03-01] MEDS: FERROUS SULFATE 325 MG TAB PO SCH ×2 (09:16→19:22)
[2017-03-01] MEDS: METOPROLOL SUCC 25MG EXT REL TAB PO SCH ×2 (09:16→19:28)
[2017-03-01] MEDS: INSULIN ASPART 100 UNITS/ML 3 ML PEN SC SCH ×4 (09:26→20:50)
[2017-03-01 11:03] VITALS: BP 105/68; PULSE 72; O2SAT 100
--- NOTE | 2017-03-01 11:03 | Family Medicine Progress Note ---
Progress Note Date of Service Mar 01, 2017. Subjective Pt evaluation today including: conversation w/ patient, physical exam, chart review, lab review, review of studies, review of inpatient medication list Pain: denies pain at present although has intermittent bladder pain PO Intake: adequate Voiding: grimes catheter in place NO acute events over night. NO further gross hematuria from Grimes. Patient as been reporting intermittent bladder pain but reports pain medication has helped. Patient seen by Urology this AM , CBI is being clamped provider prabhat has no further bleeding. Constitutional: No chills, No fever, No weakness Respiratory: No cough, No shortness of breath Cardiovascular: No chest pain, No edema, No palpitations Abdomen: + problem reported (intermittent pain at bladder), No constipation , No diarrhea, No nausea, No vomiting Male : + dysuria, + hematuria (gross hematuria resolved ), No urinary frequency Medications Current Inpatient Medications Medications (Trade) Dose Ordered Sig/Jossie Route Start Time Stop Time Status Last Admin Dose Admin Acetaminophen (Tylenol Tab) 650 mg Q4H PRN PO 02/26/17 20:30 03/28/17 20:29 Al Hydrox/Mg Hydrox/Simethicone (Maalox Max Susp) 15 ml Q4H PRN PO 02/26/17 20:30 03/28/17 20:29 Magnesium Hydroxide (Milk Of Magnesia Susp) 30 ml Q6H PRN PO 02/26/17 20:30 03/28/17 20:29 Polyethylene (Miralax Powder Packet) 17 gm DAILY PRN PO 02/26/17 20:30 03/28/17 20:29 Ondansetron HCl (Zofran Inj) 4 mg Q6H PRN IV 02/26/17 20:30 03/28/17 20:29 Allopurinol (Zyloprim Tab) 100 mg QAM PO 02/27/17 08:00 03/29/17 08:59 03/01/17 09:16 100 MG Bisacodyl (Dulcolax Supp) 10 mg DAILY PRN NM 02/26/17 20:30 03/28/17 20:29 03/01/17 05:43 10 MG Finasteride (Proscar Tab) 5 mg QAM PO 02/27/17 08:00 03/29/17 08:59 03/01/17 09:15 5 MG Fluticasone Propionate (Flonase Nasal [place]) 1 sprays DAILY LUIS 02/27/17 08:00 03/29/17 08:59 03/01/17 09:15 1 SPRAYS Furosemide (Lasix Tab) 40 mg UD PRN PO 02/26/17 20:30 03/28/17 20:29 Magnesium Oxide (Mag-Ox Tab) 400 mg QAM PO 02/27/17 08:00 03/29/17 08:59 03/01/17 09:15 400 MG Metoprolol Succinate (Toprol Xl Tab) 25 mg Q12H PO 02/26/17 21:00 03/28/17 20:59 03/01/17 09:16 25 MG Ondansetron HCl (Zofran Tab) 4 mg Q6 PRN PO 02/26/17 20:30 03/28/17 20:29 Oxycodone HCl (Roxicodone Immediate Rel Tab) 5 mg Q4 PRN PO 02/26/17 20:30 03/12/17 20:29 02/27/17 03:04 5 MG Pyridoxine HCl (Vitamin B-6 Tab) 100 mg QAM PO 02/27/17 08:00 03/29/17 08:59 03/01/17 09:15 100 MG Ferrous Sulfate (Feosol Tab) 325 mg BID PO 02/26/17 21:00 03/28/17 20:59 03/01/17 09:16 325 MG Hydrocortisone/ Pramoxine (Proctofoam Hc) 1 gm Q6 PRN NM 02/26/17 20:30 03/28/17 20:29 Pantoprazole Sodium (Protonix Tab) 40 mg BID PO 02/26/17 21:00 03/28/17 20:59 03/01/17 09:16 40 MG Trazodone HCl (Desyrel Tab) 150 mg HS PO 02/26/17 21:00 03/28/17 20:59 02/28/17 20:28 150 MG Insulin Aspart SLIDING SCALE G... ACHS SC 02/27/17 06:30 03/29/17 06:29 Sodium Chloride (1/2 Nss 1000ml) 1,000 ml @ 150 mls/hr Q6H40M IV 02/26/17 22:00 03/28/17 21:59 03/01/17 09:22 150 MLS/HR Morphine Sulfate (MoRPHine SULFATE INJ) 2 mg Q2H PRN IV 02/27/17 02:47 03/13/17 02:46 02/28/17 21:22 2 MG Oxybutynin Chloride (Ditropan Tab) 5 mg TID PO 02/27/17 08:00 03/29/17 07:59 03/01/17 09:16 5 MG Lidocaine HCl (Xylocaine Jelly 2%) 5 ml UD PRN EXT 02/27/17 08:00 03/29/17 07:59 Objective Vital Signs Date Time Temp Pulse Resp B/P Pulse Ox O2 Delivery O2 Flow Rate FiO2 03/01/17 08:30 36.3 61 18 105/69 97 Room Air 03/01/17 08:00 Room Air 03/01/17 00:17 36.4 83 16 113/74 95 Room Air 03/01/17 00:15 Room Air 02/28/17 17:01 Room Air 02/28/17 15:34 36.6 63 18 112/72 97 Room Air Physical Exam Notes: General Appearance: WD/WN, no apparent distress Eyes: normal inspection Respiratory/Chest: lungs clear, normal breath sounds, no respiratory distress Cardiovascular: regular rate, rhythm, no edema, + systolic murmur, + normal peripheral pulses Abdomen: normal bowel sounds, soft, + tenderness (suprapubic), + pertinent finding (Grimes in place, CBI clamped, , Urine from catheter contained no gross blood) Extremities: normal range of motion, non-tender, normal inspection Neurologic/Psychiatric: alert, normal mood/affect, oriented x 3 Skin: normal color, warm/dry, no rash Laboratory Results Results Past 24 Hours Test 02/28/17 11:12 02/28/17 12:21 02/28/17 16:49 02/28/17 17:12 Range/Units Bedside Glucose 102 107 70-99 mg/dl Hemoglobin 9.7 9.1 14.0-18.0 g/dL Hematocrit 30.3 28.3 42-52 % Test 02/28/17 20:04 02/28/17 22:35 03/01/17 05:46 03/01/17 07:55 Range/Units Bedside Glucose 139 106 70-99 mg/dl Hemoglobin 9.2 8.5 14.0-18.0 g/dL Hematocrit 28.3 25.9 42-52 % White Blood Count 3.87 4.8-10.8 K/uL Red Blood Count 2.81 4.7-6.1 M/uL Mean Corpuscular Volume 92.2 80-100 fL Mean Corpuscular Hemoglobin 30.2 25-34 pg Mean Corpuscular Hemoglobin Concent 32.8 32-36 g/dl RDW Standard Deviation 56.1 36.4-46.3 fL RDW Coefficient of Variation 16.6 11.5-14.5 % Platelet Count 70 130-400 K/uL Mean Platelet Volume 10.7 7.4-10.4 fL Sodium Level 139 136-145 mmol/L Potassium Level 3.8 3.5-5.1 mmol/L Chloride Level 110 98-107 mmol/L Carbon Dioxide Level 22 21-32 mmol/L Anion Gap 7.0 3-11 mmol/L Blood Urea Nitrogen 33 7-18 mg/dl Creatinine 1.40 0.60-1.40 mg/dl Est Creatinine Clear Calc Drug Dose 34.1 ml/min Estimated GFR () 51.6 Estimated GFR (Non- 44.5 BUN/Creatinine Ratio 23.5 10-20 Random Glucose 101 70-99 mg/dl Calcium Level 7.8 8.5-10.1 mg/dl Assessment and Plan 86 yo M w/ hx of Afib, AA, CAD, HTL, p/w hematuria and pain with urination, anemia. VSS s/p transfusion [address] with Continuous Bladder irrigation Gross hematuria, Acute blood loss Anemia Hb 8.5 <--9.2 s/p transfusion 2u -asx for anemia - Follow serial h/h -Transfuse if Hbg <8 - Continuous Bladder irrigation clamped, NO blood from grimes overnight - Continue Morphine 2 mg every 4 hours -Per Urology, patient can likely be evaluated with cystoscopy outpatient Chronic kidney disease - Creatinine stable , 1.4<-1.3 <-1.4 <--1.5 - Continue to monitor daily BMP Abdominal aortic aneurysm - CT 02/21: stable 51 mm infrarenal AAA - stable asx, - will wait for urology to evaluate bladder prior to possible further evaluation Atrial Fibrillation - Continue metoprolol - Remains rate controlled - Anticoagulation held Coronary Artery Disease -Con't metoprolol - Not on aspirin or statin Diabetes - sliding scale - Every 6 hour blood sugars as patient is nothing by mouth Hypertension - Continue metoprolol DVT prophylaxis - SCD - Anticoagulation held for bleeding CODE STATUS - DO NOT RESUSCITATE Disposition - [facility] - [facility]; - plan to return to [facility] Resident Physician Supervision Note: I interviewed and examined the patient. Discussed with Dr. Lilly and agree with findings and plan as documented in the note. Any exceptions or clarifications are listed here: Upon my examination this afternoon, the patient was again out of bed seated in a chair. He was alert and oriented. He was no acute distress. He denied any pain; specifically does not have any suprapubic tenderness or pain in the groin as he did upon admission. His Grimes is draining clear yellow urine; no reports of blood or blood clots in the last 24 hours. Urology consult reviewed and appreciated. If remains stable, trial of voiding tomorrow a.m. Continue to monitor hemoglobin and transfuse if less than 8; at this point however, we can discontinue every 8 hours hemoglobins and just recheck in the a.m. Documented By: Omid Canales Resident Tracking Resident Involvement: Resident Care Provided Care Provided: Adult Hospital Medicine
--- NOTE | 2017-03-01 13:46 | Progress Note ---
Progress Note Date of Service Mar 01, 2017. Progress Note Pt seen this afternoon. Urine remains clear, yellow with CBI clamped. Will keep clamped for now. Possible TOV in AM if urine remains clear. Will continue to follow along with primary service.
[2017-03-01 15:30] VITALS: BP 116/75; PULSE 62; TEMP 36.7; O2SAT 96
[2017-03-01] MEDS: TRAZODONE HCL 50 MG TAB PO SCH (19:23)
[2017-03-01 19:30] VITALS: BP 90/58
[2017-03-02] MEDS: SODIUM CHLORIDE 0.45% 1000ML 1,000 ML IV SCH ×2 (00:55→06:35)
[2017-03-02 04:55] VITALS: BP 127/76; PULSE 75; TEMP 36.2; O2SAT 95
[2017-03-02 06:30] LABS: HEMATOCRIT 24.9 % (42-52); MEAN CELL VOLUME 91.5 fL (80-100); MEAN CORPUSCULAR HEMOGLOBIN 29.4 pg (25-34); MEAN CORPUSCULAR HGB CONC 32.1 g/dl (32-36); RED BLOOD COUNT 2.72 M/uL (4.7-6.1); WHITE BLOOD COUNT 3.51 K/uL (4.8-10.8)
[2017-03-02 06:37] LABS: INR 1.2 (0.9-1.1); PROTHROMBIN TIME (PATIENT) 13.4 SECONDS (9.0-12.0)
[2017-03-02 07:03] LABS: MEAN PLATELET VOLUME 9.7 fL (7.4-10.4); PLATELET COUNT 70 K/uL (130-400)
[2017-03-02 07:04] LABS: BUN/CREATININE RATIO 20.9 (10-20); CALCIUM 7.7 mg/dl (8.5-10.1); CREATININE 1.4 mg/dl (0.60-1.40); POTASSIUM 3.9 mmol/L (3.5-5.1)
[2017-03-02 07:22] LABS: BASO % 0.3 %; BASO ABS # 0.01 K/uL (0-0.2); COMPLETE YES; ECHINOCYTES 1+; EOS % 3.4 %; IG% 0.6 %; LYMPH % 19.7 %; LYMPH ABS # 0.69 K/uL (1.2-3.4); MONO % 10.5 %; NEUT % 65.5 %; OVALOCYTES 1+
[2017-03-02 07:41] VITALS: BP 119/79; PULSE 62; TEMP 36.4; O2SAT 98
[2017-03-02] MEDS: INSULIN ASPART 100 UNITS/ML 3 ML PEN SC SCH ×2 (08:26→11:58)
--- NOTE | 2017-03-02 08:46 | Progress Note ---
Subjective Date of Service: Mar 02, 2017. Subjective Pt evaluation today including: conversation w/ patient, physical exam, chart review, lab review Voiding: grimes catheter in place 86 year old admitted for recurrent hematuria. CBI was stopped yesterday. Grimes intact - urine is clear yellow. Afvss Pt states he is feeling well. Problem List Medical Problems: (1) Aortic aneurysm Status: Acute (2) Failure of outpatient treatment Status: Acute (3) Hematuria Status: Acute (4) Hypotension Status: Acute (5) Hypoxia Status: Acute (6) Inguinal hernia Status: Acute (7) PNA (pneumonia) Status: Acute (8) Severe anemia Status: Acute (9) Thrombocytopenia Status: Acute (10) Unstable angina Status: Acute Review of Systems Constitutional: No chills, No fever ENT: No hearing loss Respiratory: No cough, No shortness of breath Cardiac: No chest pain Abdomen: No pain Male : + see HPI Heme: No abnormal bleeding/bruising Objective Vital Signs Date Time Temp Pulse Resp B/P Pulse Ox O2 Delivery O2 Flow Rate FiO2 03/02/17 07:41 36.4 62 18 119/79 98 03/02/17 04:55 36.2 75 18 127/76 95 Room Air 03/02/17 00:00 Room Air 03/01/17 19:30 90/58 03/01/17 16:00 Room Air 03/01/17 15:30 36.7 62 18 116/75 96 Room Air 03/01/17 11:03 72 100 Physical Exam General Appearance: WD/WN, no apparent distress Eyes: normal inspection Respiratory/Chest: no respiratory distress, no accessory muscle use Abdomen: soft Extremities: no pedal edema, no calf tenderness Neurologic/Psychiatric: alert, normal mood/affect Laboratory Results Last 24 Hours Test 03/01/17 11:28 03/01/17 16:50 03/01/17 20:06 03/02/17 05:50 Bedside Glucose 133 mg/dl 126 mg/dl 127 mg/dl White Blood Count 3.51 K/uL Red Blood Count 2.72 M/uL Hemoglobin 8.0 g/dL Hematocrit 24.9 % Mean Corpuscular Volume 91.5 fL Mean Corpuscular Hemoglobin 29.4 pg Mean Corpuscular Hemoglobin Concent 32.1 g/dl Platelet Count 70 K/uL Mean Platelet Volume 9.7 fL Neutrophils (%) (Auto) 65.5 % Lymphocytes (%) (Auto) 19.7 % Monocytes (%) (Auto) 10.5 % Eosinophils (%) (Auto) 3.4 % Basophils (%) (Auto) 0.3 % Neutrophils # (Auto) 2.30 K/uL Lymphocytes # (Auto) 0.69 K/uL Monocytes # (Auto) 0.37 K/uL Eosinophils # (Auto) 0.12 K/uL Basophils # (Auto) 0.01 K/uL RDW Standard Deviation 54.6 fL RDW Coefficient of Variation 16.3 % Immature Granulocyte % (Auto) 0.6 % Immature Granulocyte # (Auto) 0.02 K/uL Ovalocytes 1+ Echinocytes 1+ Prothrombin Time 13.4 SECONDS Prothromb Time International Ratio 1.2 Sodium Level 140 mmol/L Potassium Level 3.9 mmol/L Chloride Level 111 mmol/L Carbon Dioxide Level 23 mmol/L Anion Gap 6.0 mmol/L Blood Urea Nitrogen 29 mg/dl Creatinine 1.40 mg/dl Est Creatinine Clear Calc Drug Dose 34.1 ml/min Estimated GFR () 51.6 Estimated GFR (Non- 44.5 BUN/Creatinine Ratio 20.9 Random Glucose 98 mg/dl Calcium Level 7.7 mg/dl Test 03/02/17 07:44 Bedside Glucose 102 mg/dl Assessment and Plan Hematuria Urine is clear since CBI has been stopped. Discontinue grimes and trial of void. Will try to avoid replacing catheter. If unable to void he can be straight cathed at [facility] and prn. Ok to d/c back to [facility] from perspective. Will follow up as outpt. Continued [facility] stay due to: other (gross hematuria, anemia) Discharge planning: other ([facility])
[2017-03-02] MEDS: METOPROLOL SUCC 25MG EXT REL TAB PO SCH (09:43)
[2017-03-02] MEDS: PYRIDOXINE HCL 50 MG TAB PO SCH (09:43)
[2017-03-02] MEDS: OXYBUTYNIN CHLORIDE 5 MG TAB PO SCH ×2 (09:43→14:41)
[2017-03-02] MEDS: PANTOprazole SOD 40 MG TAB PO SCH (09:43)
[2017-03-02] MEDS: FERROUS SULFATE 325 MG TAB PO SCH (09:43)
[2017-03-02] MEDS: ALLOPURINOL 100 MG TAB PO SCH (09:43)
[2017-03-02] MEDS: MAGNESIUM OXIDE 400 MG TAB PO SCH (09:44)
[2017-03-02] MEDS: FINASTERIDE 5 MG TAB PO SCH (09:44)
[2017-03-02] MEDS: FLUTICASONE PROPIONATE NA SPR 16 GM BTL NAE SCH (09:44)
--- NOTE | 2017-03-02 11:47 | Family Medicine Progress Note ---
Progress Note Date of Service Mar 02, 2017. Subjective Pt evaluation today including: conversation w/ patient, physical exam, chart review, lab review, review of studies, review of inpatient medication list Pain: intermittent bladder pain PO Intake: adequate Voiding: grimes catheter in place NO acute events overnight. No further bleeding from Grimes per nurse. Patient seen by Urology with plans to do trial of voiding today. He continues to report intermittent bladder pain but feels significantly better in general. denies fever/s chills, CP sob, N/V,flank pain, hematuria, Constitutional: No chills, No fever Respiratory: No cough, No shortness of breath, No sputum Cardiovascular: No chest pain, No edema Abdomen: + problem reported (bladder pain ), No diarrhea, No nausea, No vomiting Male : No hematuria, No urinary frequency Skin: No itch, No rash Medications Current Inpatient Medications Medications (Trade) Dose Ordered Sig/Jossie Route Start Time Stop Time Status Last Admin Dose Admin Acetaminophen (Tylenol Tab) 650 mg Q4H PRN PO 02/26/17 20:30 03/28/17 20:29 Al Hydrox/Mg Hydrox/Simethicone (Maalox Max Susp) 15 ml Q4H PRN PO 02/26/17 20:30 03/28/17 20:29 Magnesium Hydroxide (Milk Of Magnesia Susp) 30 ml Q6H PRN PO 02/26/17 20:30 03/28/17 20:29 Polyethylene (Miralax Powder Packet) 17 gm DAILY PRN PO 02/26/17 20:30 03/28/17 20:29 Ondansetron HCl (Zofran Inj) 4 mg Q6H PRN IV 02/26/17 20:30 03/28/17 20:29 Allopurinol (Zyloprim Tab) 100 mg QAM PO 02/27/17 08:00 03/29/17 08:59 03/02/17 09:43 100 MG Bisacodyl (Dulcolax Supp) 10 mg DAILY PRN AL 02/26/17 20:30 03/28/17 20:29 03/01/17 05:43 10 MG Finasteride (Proscar Tab) 5 mg QAM PO 02/27/17 08:00 03/29/17 08:59 03/02/17 09:44 5 MG Fluticasone Propionate (Flonase Nasal [place]) 1 sprays DAILY LUIS 02/27/17 08:00 03/29/17 08:59 03/02/17 09:44 1 SPRAYS Furosemide (Lasix Tab) 40 mg UD PRN PO 02/26/17 20:30 03/28/17 20:29 Magnesium Oxide (Mag-Ox Tab) 400 mg QAM PO 02/27/17 08:00 03/29/17 08:59 03/02/17 09:44 400 MG Metoprolol Succinate (Toprol Xl Tab) 25 mg Q12H PO 02/26/17 21:00 03/28/17 20:59 03/02/17 09:43 25 MG Ondansetron HCl (Zofran Tab) 4 mg Q6 PRN PO 02/26/17 20:30 03/28/17 20:29 Oxycodone HCl (Roxicodone Immediate Rel Tab) 5 mg Q4 PRN PO 02/26/17 20:30 03/12/17 20:29 02/27/17 03:04 5 MG Pyridoxine HCl (Vitamin B-6 Tab) 100 mg QAM PO 02/27/17 08:00 03/29/17 08:59 03/02/17 09:43 100 MG Ferrous Sulfate (Feosol Tab) 325 mg BID PO 02/26/17 21:00 03/28/17 20:59 03/02/17 09:43 325 MG Hydrocortisone/ Pramoxine (Proctofoam Hc) 1 gm Q6 PRN AL 02/26/17 20:30 03/28/17 20:29 Pantoprazole Sodium (Protonix Tab) 40 mg BID PO 02/26/17 21:00 03/28/17 20:59 03/02/17 09:43 40 MG Trazodone HCl (Desyrel Tab) 150 mg HS PO 02/26/17 21:00 03/28/17 20:59 03/01/17 19:23 150 MG Insulin Aspart (novoLOG ASPART) SLIDING SCALE G... ACHS SC 02/27/17 06:30 03/29/17 06:29 Morphine Sulfate (MoRPHine SULFATE INJ) 2 mg Q2H PRN IV 02/27/17 02:47 03/13/17 02:46 02/28/17 21:22 2 MG Oxybutynin Chloride (Ditropan Tab) 5 mg TID PO 02/27/17 08:00 03/29/17 07:59 03/02/17 09:43 5 MG Lidocaine HCl (Xylocaine Jelly 2%) 5 ml UD PRN EXT 02/27/17 08:00 03/29/17 07:59 Objective Vital Signs Date Time Temp Pulse Resp B/P Pulse Ox O2 Delivery O2 Flow Rate FiO2 03/02/17 07:41 36.4 62 18 119/79 98 03/02/17 04:55 36.2 75 18 127/76 95 Room Air 03/02/17 00:00 Room Air 03/01/17 19:30 90/58 03/01/17 16:00 Room Air 03/01/17 15:30 36.7 62 18 116/75 96 Room Air Physical Exam Notes: General Appearance: WD/WN, no apparent distress Eyes: normal inspection Respiratory/Chest: lungs clear, normal breath sounds, no respiratory distress Cardiovascular: regular rate, rhythm, no edema, + systolic murmur, + normal peripheral pulses Abdomen: normal bowel sounds, soft, + tenderness (suprapubic), + pertinent finding (Grimes in place, CBI clamped, , Urine from catheter contained no gross blood) Extremities: normal range of motion, non-tender, normal inspection Neurologic/Psychiatric: alert, normal mood/affect, oriented x 3 Skin: normal color, warm/dry, no rash Laboratory Results Results Past 24 Hours Test 03/01/17 16:50 03/01/17 20:06 03/02/17 05:50 03/02/17 07:44 Range/Units Bedside Glucose 126 127 102 70-99 mg/dl White Blood Count 3.51 4.8-10.8 K/uL Red Blood Count 2.72 4.7-6.1 M/uL Hemoglobin 8.0 14.0-18.0 g/dL Hematocrit 24.9 42-52 % Mean Corpuscular Volume 91.5 80-100 fL Mean Corpuscular Hemoglobin 29.4 25-34 pg Mean Corpuscular Hemoglobin Concent 32.1 32-36 g/dl Platelet Count 70 130-400 K/uL Mean Platelet Volume 9.7 7.4-10.4 fL Neutrophils (%) (Auto) 65.5 % Lymphocytes (%) (Auto) 19.7 % Monocytes (%) (Auto) 10.5 % Eosinophils (%) (Auto) 3.4 % Basophils (%) (Auto) 0.3 % Neutrophils # (Auto) 2.30 1.4-6.5 K/uL Lymphocytes # (Auto) 0.69 1.2-3.4 K/uL Monocytes # (Auto) 0.37 0.11-0.59 K/uL Eosinophils # (Auto) 0.12 0-0.5 K/uL Basophils # (Auto) 0.01 0-0.2 K/uL RDW Standard Deviation 54.6 36.4-46.3 fL RDW Coefficient of Variation 16.3 11.5-14.5 % Immature Granulocyte % (Auto) 0.6 % Immature Granulocyte # (Auto) 0.02 0.00-0.02 K/uL Ovalocytes 1+ Echinocytes 1+ Prothrombin Time 13.4 9.0-12.0 SECONDS Prothromb Time International Ratio 1.2 0.9-1.1 Sodium Level 140 136-145 mmol/L Potassium Level 3.9 3.5-5.1 mmol/L Chloride Level 111 98-107 mmol/L Carbon Dioxide Level 23 21-32 mmol/L Anion Gap 6.0 3-11 mmol/L Blood Urea Nitrogen 29 7-18 mg/dl Creatinine 1.40 0.60-1.40 mg/dl Est Creatinine Clear Calc Drug Dose 34.1 ml/min Estimated GFR () 51.6 Estimated GFR (Non- 44.5 BUN/Creatinine Ratio 20.9 10-20 Random Glucose 98 70-99 mg/dl Calcium Level 7.7 8.5-10.1 mg/dl Test 03/02/17 11:26 Range/Units Bedside Glucose 159 70-99 mg/dl Microbiology Results 03/02/17 Urine Culture, Received Pending Assessment and Plan 86 yo M w/ hx of Afib, AA, CAD, HTL, p/w hematuria and pain with urination, anemia. VSS s/p transfusion 2 units. CBI clamped, grimes to be removed for trial of void Gross hematuria, Acute blood loss Anemia s/p transfusion 2u -Hb 8.0 <--8.5 <--9.2 , no further gross hematuria, -Anemia may be dilutional, Stop fluids, recheck CBC in the AM -asx for anemia ,- Continuous Bladder irrigation clamped, NO blood from grimes overnight -Transfuse if Hbg <8 - Continue Morphine 2 mg every 4 hours -Per Urology, patient can likely be evaluated with cystoscopy outpatient -If failure of trial of void, patient will need straight cath prn at [facility] Chronic kidney disease - Creatinine stable , 1.4<-1.3 <-1.4 <--1.5 - Continue to monitor daily BMP Abdominal aortic aneurysm - CT 02/21: stable 51 mm infrarenal AAA - stable asx, - will wait for urology to evaluate bladder prior to possible further evaluation Atrial Fibrillation - Continue metoprolol - Remains rate controlled - Anticoagulation held Coronary Artery Disease -Con't metoprolol - Not on aspirin or statin Diabetes - sliding scale - Every 6 hour blood sugars as patient is nothing by mouth Hypertension - Continue metoprolol DVT prophylaxis - SCD - Anticoagulation held for bleeding CODE STATUS - DO NOT RESUSCITATE Disposition - [facility] - PT/OT; - plan to return to [facility] following Voiding trial and repeat CBC tmr Resident Physician Supervision Note: I interviewed and examined the patient. Discussed with Dr. Lilly and agree with findings and plan as documented in the note. Any exceptions or clarifications are listed here: Please see discharge summary of the same date. Documented By: Omid Canales Discharge planning: assisted facility Resident Tracking Resident Involvement: Resident Care Provided Care Provided: Adult Hospital Medicine
--- NOTE | 2017-03-02 13:52 | Discharge Instructions ---
Discharge Instructions Date of Service Mar 02, 2017. Admission Reason for Admission: Hematuria Discharge Discharge Diagnosis / Problem: Hematuria, Anemia Discharge Goals Goal(s): Decrease discomfort, Improve function, Increase independence, Improve disease control, Improve nutritional status, Learn about illness, Diagnostic testing, Therapeutic intervention, Screening, Prevent Disease Progression, Specific goals Activity Recommendations Activity Level: Up Ad Sindi . Additional Information Patient informed of condition: Yes Advance Directives: Yes DNR: Yes Level of Care: Skilled Communicable Disease: No Prognosis: Improving Grimes Catheter: No Instructions / Follow-Up Instructions / Follow-Up 86 yo M w/ hx of Afib, AA, CAD, HTL, p/w hematuria and pain with urination, anemia. VSS s/p transfusion [address] with Continuous Bladder irrigation Gross hematuria, intermittent bladder pain, Acute blood loss Anemia - arrived with bladder pain with urination, gross hematuria - asx for anemia , Hb 9.2 on arrival - Started on Continuous Bladder irrigation on arrival -received 2 units of PRBC during hospital stay - Continuous Bladder irrigation clamped 03/01 - Hematuria resolved, Hb 8.0 on discharge -IV fluids stopped on day of discharge -Per Urology, patient can be evaluated with followup cystoscopy outpatient -Check CBC following d/c on 03/05 Chronic kidney disease - Creatinine stable Abdominal aortic aneurysm - CT 02/21: stable 51 mm infrarenal AAA - stable asx, Atrial Fibrillation - Continue metoprolol - Remains rate controlled - Not on Anticoagulation Coronary Artery Disease stable -Con't metoprolol Diabetes - sliding scale - Every 6 hour blood sugars as patient is nothing by mouth Hypertension - Continue metoprolol DVT prophylaxis - SCD - Anticoagulation contraindicated CODE STATUS - DO NOT RESUSCITATE Disposition [facility] Current Hospital Diet Patient's current hospital diet: AHA Diet (Heart Healthy) Discharge Diet Recommended Diet: AHA Diet (Heart Healthy) Procedures Procedures Performed: BLADDER ULTRASONOGRAPHY CLINICAL HISTORY: Hematuria COMPARISON STUDY: No previous studies for comparison. FINDINGS: There is indwelling Grimes catheter. The bladder was empty. This limits the evaluation for bladder masses. Single images of each kidney were acquired. There is no hydronephrosis. IMPRESSION: 1. No evidence of hydronephrosis 2. Grimes catheter within the bladder Pending Studies Studies pending at discharge: no Physician Orders On Transfer Additional Orders: Follow Daily Vital Signs, CBC pn Hgb 8 on discharge If unable to void, Straight Cath prn or qshift, 03/05 Laboratory Results Hemoglobin A1c Test 02/23/17 08:01 Range/Units Estimated Average Glucose 140 mg/dl Hemoglobin A1c 6.5 H 4.5-5.6 % Lipid Panel Test 02/23/17 08:01 Range/Units Triglycerides Level 54 0-150 mg/dl Cholesterol Level 82 0-200 mg/dl HDL Cholesterol 38 mg/dl Cholesterol/HDL Ratio 2.2 LDL Cholesterol, Calculated 33 mg/dl Medical Emergencies . Who to Call and When: Medical Emergencies: If at any time you feel your situation is an emergency, please call 911 immediately. . Non-Emergent Contact Non-Emergency issues call your: Primary Care Provider Call Non-Emergent contact if: temperature is above 100.5, your pain is not controlled, your pain is worsening, your pain is unusual for you, your pain is concerning you, you have any medication questions . . "Provider Documentation" section prepared by Yvan Lilly. . Core Measure Problem Core Measures: None
[2017-03-02 15:11] VITALS: BP 102/66; PULSE 52; TEMP 36.8; O2SAT 99
[2017-03-02 15:43] VITALS: BP 102/66; PULSE 52; TEMP 36.8; O2SAT 99
--- NOTE | 2017-03-02 16:28 | Discharge Summary ---
Discharge Summary Date of Service Mar 02, 2017. (Yvan Lilly MD) Discharge Summary Admission Date: Feb 26, 2017 at 20:28 Discharge Date: Mar 02, 2017 Discharge Disposition: Home Principal Diagnosis: Hematuria, Acute Blood loss Anemia Problems/Secondary Diagnoses: Afib,AAA. DMII, HTN Procedures: BLADDER ULTRASONOGRAPHY CLINICAL HISTORY: Hematuria COMPARISON STUDY: No previous studies for comparison. FINDINGS: There is indwelling Mendoza catheter. The bladder was empty. This limits the evaluation for bladder masses. Single images of each kidney were acquired. There is no hydronephrosis. IMPRESSION: 1. No evidence of hydronephrosis 2. Mendoza catheter within the bladder Consultations: Urology (Yvan Lilly MD) Medication Reconciliation Continued Medications: Acetaminophen (Tylenol) 650 Mg Supp 650 MG FL Q4 PRN for ELEVATED TEMPERATURE Acetaminophen Tab (Tylenol) 325 Mg Tab 650 MG PO Q4H PRN for RN, TAB Allopurinol (Allopurinol) 100 Mg Tab 100 MG PO QAM Ascorbic Acid (Vitamin C) 500 Mg Cap 500 MG PO QAM Bisacodyl (Bisacodyl) 10 Mg Sup 10 MG FL DAILY PRN for Constipation Cholecalciferol (Vitamin D) 2,000 Unit Tab 2000 UNIT PO QAM Coenzyme Q10 (Ubidecarenone) (Coq10) 100 Mg Cap 100 MG PO QAM Cyanocobalamin (Vitamin B12) 1,000 Mcg Tab 1000 MCG PO QAM Ferrous Sulfate (Kp Ferrous Sulfate) 325 Mg Tab 325 MG PO BID for anemia, TAB Finasteride (Proscar) 5 Mg Tab 5 MG PO QAM, TAB Fluticasone Propionate (Nasal) (Flonase Allergy Relief Ch) 50 Mcg/Act Spr 2 SPRAY LUIS DAILY Furosemide (Lasix) 40 Mg Tab 40 MG PO UD PRN for IF WT >OR= 164 LBS, TAB Hydrocortisone/Pramoxine (Proctofoam Hc) Aer 1 APPL FL Q6 PRN for HEMORRHOID PAIN, CAN Magnesium Hydroxide (Milk of Magnesia) 30 Ml Susp 30 ML PO DAILY PRN for 2 DAYS NO BM Magnesium Oxide (Mag-Ox) 400 Mg Tab 400 MG PO QAM, TAB Metoprolol Succ (Toprol Xl) (Toprol-Xl) 25 Mg Tabcr 25 MG PO Q12, #30 TAB Omeprazole (Prilosec) 20 Mg Capcr 20 MG PO BID for 30 Days, #60 CAP Ondansetron Hcl (Zofran) 4 Mg Tab 4 MG PO Q6 PRN for Nausea, TAB Oxycodone HCl (Oxycodone HCl) 5 Mg Tab 5 MG PO Q4 PRN for Pain Pyridoxine (Vitamin B6) 100 Mg Tab 100 MG PO QAM, TAB Sodium Phosphate/Biphosphate (Fleet Enema) Amy 1 EA FL DAILY PRN for Constipation, BTL Trazodone HCl (Trazodone HCl) 150 Mg Tab 150 MG PO HS Discharge Exam NO acute events overnight. No further bleeding from Mendoza per nurse. Patient seen by Urology with plans to do trial of voiding today. He continues to report intermittent bladder pain but feels significantly better in general. denies fever/s chills, CP sob, N/V,flank pain, hematuria, Constitutional: No chills, No fever Respiratory: No cough, No shortness of breath, No sputum Cardiovascular: No chest pain, No edema Abdomen: + problem reported (bladder pain ), No diarrhea, No nausea, No vomiting Male : No hematuria, No urinary frequency Skin: No itch, No rash General Appearance: WD/WN, no apparent distress Eyes: normal inspection Respiratory/Chest: lungs clear, normal breath sounds, no respiratory distress Cardiovascular: regular rate, rhythm, no edema, + systolic murmur, + normal peripheral pulses Abdomen: normal bowel sounds, soft, + tenderness (suprapubic), + pertinent finding (Mendoza in place, CBI clamped, , Urine from catheter contained no gross blood) Extremities: normal range of motion, non-tender, normal inspection Neurologic/Psychiatric: alert, normal mood/affect, oriented x 3 Skin: normal color, warm/dry, no rash (Yvan Lilly MD) Hospital Course This is an 86 yo M resident of [facility] with Hx of Afin AAA, CAD, HTN DMII admitted with gross hematuria and pain with urination. He had previously gone to ED the day prior for the same symptoms and was sent home following after symptoms seemed to resolve. Patient returned to the ED and Mendoza was placed and patient was placed on Continuous bladder Irrigation. Urology was consulted on admission. During hosital stay, patient had significan bleeding per the [place] despite Bladder irrigation and clots were manually evacuated. Hemoglobin dropped during hospital stay from 9.2 on arrival to 8 and then he received 2 units PRBC while in the Hospital. Vital signs remained stable. By Discharge date, Hbg was 8 but patient was no longer bleeding per Mendoza catheter and was asymptomatic for anemia. CBI was clamped, Mendoza removed per Urology, It was decided that patient could be discharged to [facility] with instructions for repeat CBC on 03/05 and followup with Urology outpatient subsequently. Total Time Spent: Less than 30 minutes This includes examination of the patient, discharge planning, medication reconciliation, and communication with other providers. (Yvan Lilly MD) Resident Physician Supervision Note: I was present with Dr. Lilly during the history and exam. I discussed the case with the resident and agree with the findings and plan as documented in the note. Any exceptions or clarifications are listed here: Upon my summation today, the patient is alert and oriented, conversational. Denies any pain. His urine continues to be clear yellow without evidence of bleeding or clots. Hemoglobin today is 8. With no active bleeding, the patient is looking forward to returning to [facility]. Recommend repeat CBC on Sunday. If the patient begins to bleed again , it will become apparent rather quickly and he can always return to the ED should this occur. Documented By: Omid Canales (Omid Canales.,D.O.) Discharge Instructions Please refer to the electronic Patient Visit Report (Discharge Instructions) for additional information. (Yvan Lilly MD)
[2017-06-11] MEDS ORDERED: FURO40TA3 PO (11:18)
[2017-06-11] MEDS ORDERED: LCTS240 PO (11:18)
[2017-06-11] MEDS ORDERED: SPIR50TA2 PO (11:20)
== END 2017-03-02 17:00 | disposition home or self-care (01) | DRG 696 ==
LOC: ENRESERVTM → ENRESERVDT → ENRESERV → EDBD 17:57 → C.EDA 17:59 → C.4E 20:28
PROVIDERS: ADMIT Student in an Organized Health Care Education/Training Program; ATTEND Family Medicine
DX: R31.0 Gross hematuria (principal); D62 Acute posthemorrhagic anemia; I13.0 Hypertensive heart and chronic kidney disease with heart failure and stage 1 through stage 4 chronic kidney disease, or unspecified chronic kidney disease; I71.4 Abdominal aortic aneurysm, without rupture; E11.22 Type 2 diabetes mellitus with diabetic chronic kidney disease; N40.0 Benign prostatic hyperplasia without lower urinary tract symptoms; I25.10 Atherosclerotic heart disease of native coronary artery without angina pectoris; Z66 Do not resuscitate; I48.2 Chronic atrial fibrillation; N18.9 Chronic kidney disease, unspecified; Z79.01 Long term (current) use of anticoagulants; G89.29 Other chronic pain; Z82.49 Family history of ischemic heart disease and other diseases of the circulatory system; Z80.9 Family history of malignant neoplasm, unspecified; R33.9 Retention of urine, unspecified; Z85.820 Personal history of malignant melanoma of skin; Z98.890 Other specified postprocedural states; Z79.899 Other long term (current) drug therapy

== ENCOUNTER → 2017-02-26 | Outpatient (CLI) | payer OTHER, BC ==
[~2017-02-26] MED LIST changes: +ACET650S10 PR; -ALEN70TA4 PO; +BACI500O11 NAE; +BISA10SU5 PR; -CARB0.5D8 OP; +DSY/150 PO; +FLUT1SPR12 NAE; +FURO40TA3 PO; +GABA-112 PO; +GABA1CAP4 PO; +HYDR1AER23 PR; +LCTS240 PO; +LPR25 PO; +LSX20 PO; +MAGN400T6 PO; +METO1TAB54 PO; +MOMLX PO; +ONDA4TAB46 PO; +RXC5 PO; +SALI0.658 NAE; +SALI1SPR3 NAE; +SODIENE PR; +SPIR50TA2 PO; -TRAZ50TA35 PO
[2017-02-26 10:24] LABS: HEMATOCRIT 31.7 % (42-52)
[2017-02-26 10:56] LABS: BLOOD UREA NITROGEN 47 mg/dl (7-18); BUN/CREATININE RATIO 27.8 (10-20); CALCIUM 9.1 mg/dl (8.5-10.1); CARBON DIOXIDE 22 mmol/L (21-32); CHLORIDE 110 mmol/L (98-107); GLUCOSE 141 mg/dl (70-99); POTASSIUM 4.4 mmol/L (3.5-5.1); SODIUM 142 mmol/L (136-145)
== END | disposition home or self-care (01) ==
LOC: C.LABFOXDH 09:58
PROVIDERS: ATTEND Internal Medicine
DX: R31.0 Gross hematuria (principal); I50.22 Chronic systolic (congestive) heart failure

== ENCOUNTER → 2017-03-05 | Outpatient (CLI) | payer OTHER, BC ==
[~2017-03-05] MED LIST changes: -ALEN70TA4 PO; -AMB5 PO; -ASPI81TA28 PO; +BACI500O11 NAE; -CARB0.5D8 OP; +FURO40TA3 PO; +GABA1CAP4 PO; -GABA1CAP5 PO; +LCTS240 PO; +LPR25 PO; -LPT40 PO; +LSX20 PO; -MAGN1TAB19 PO; -MAGNSUS5 PO; +METO1TAB54 PO; -OXYC-57 PO; -PROP20TA66 PO; +RXC5 PO; +SALI0.658 NAE; +SALI1SPR3 NAE; -SPIR25TA PO; +SPIR50TA2 PO; -TRAZ50TA35 PO
[2017-03-05 09:22] LABS: HEMATOCRIT 27.7 % (42-52); MEAN CELL VOLUME 93.6 fL (80-100); MEAN CORPUSCULAR HEMOGLOBIN 29.4 pg (25-34); MEAN CORPUSCULAR HGB CONC 31.4 g/dl (32-36); MEAN PLATELET VOLUME 10.9 fL (7.4-10.4); PLATELET COUNT 103 K/uL (130-400); RED BLOOD COUNT 2.96 M/uL (4.7-6.1); WHITE BLOOD COUNT 4.22 K/uL (4.8-10.8)
== END | disposition home or self-care (01) ==
LOC: C.LABFOXDH 08:53
PROVIDERS: ATTEND Internal Medicine
DX: R31.0 Gross hematuria (principal)

== ENCOUNTER → 2017-03-15 | Outpatient (CLI) | payer OTHER, BC ==
[2017-03-15 09:02] LABS: BLOOD UREA NITROGEN 53 mg/dl (7-18); BUN/CREATININE RATIO 27.9 (10-20); CARBON DIOXIDE 28 mmol/L (21-32); CHLORIDE 107 mmol/L (98-107); GLUCOSE 100 mg/dl (70-99); MAGNESIUM 2.8 mg/dl (1.8-2.4); POTASSIUM 4.1 mmol/L (3.5-5.1); SODIUM 142 mmol/L (136-145)
[2017-03-15 09:19] LABS: CALCIUM 8.8 mg/dl (8.5-10.1)
== END | disposition home or self-care (01) ==
LOC: C.LABFOXDH 08:38
PROVIDERS: ATTEND Internal Medicine Nephrology
DX: N18.3 Chronic kidney disease, stage 3 (moderate) (principal)

== ENCOUNTER → 2017-04-16 | Outpatient (CLI) | payer OTHER, BC ==
[2017-04-16 15:41] LABS: BASO % 0.3 %; BASO ABS # 0.01 K/uL (0-0.2); COMPLETE YES; EOS % 2.8 %; HEMATOCRIT 33.3 % (42-52); IG% 0.3 %; LYMPH % 27.1 %; LYMPH ABS # 1.08 K/uL (1.2-3.4); MEAN CELL VOLUME 95.7 fL (80-100); MEAN CORPUSCULAR HEMOGLOBIN 29.3 pg (25-34); MEAN CORPUSCULAR HGB CONC 30.6 g/dl (32-36); MEAN PLATELET VOLUME 10.1 fL (7.4-10.4); NEUT % 59.5 %; PLATELET COUNT 100 K/uL (130-400); RED BLOOD COUNT 3.48 M/uL (4.7-6.1); WHITE BLOOD COUNT 3.99 K/uL (4.8-10.8)
[2017-04-16 16:02] LABS: BLOOD UREA NITROGEN 48 mg/dl (7-18); BUN/CREATININE RATIO 26.6 (10-20); CALCIUM 8.4 mg/dl (8.5-10.1); CARBON DIOXIDE 28 mmol/L (21-32); CHLORIDE 107 mmol/L (98-107); GLUCOSE 123 mg/dl (70-99); MAGNESIUM 2.7 mg/dl (1.8-2.4); POTASSIUM 4.2 mmol/L (3.5-5.1); SODIUM 143 mmol/L (136-145)
[2017-04-16 16:08] LABS: FERRITIN 115.8 ng/ml (8.0-388.0); PHOSPHORUS 4.4 mg/dl (2.5-4.9); TOTAL IRON BINDING CAPACITY 347 mcg/dl (250-450)
== END | disposition home or self-care (01) ==
LOC: C.LAB1850 14:31
PROVIDERS: ATTEND Internal Medicine Nephrology
DX: D64.9 Anemia, unspecified (principal); N18.3 Chronic kidney disease, stage 3 (moderate)

== ENCOUNTER → 2017-04-23 | Outpatient (CLI) | payer OTHER, BC ==
[2017-04-23 10:51] LABS: CHOLESTEROL/HDL RATIO 2.8
== END | disposition home or self-care (01) ==
LOC: C.LABFOXDH 09:14
PROVIDERS: ATTEND Internal Medicine
DX: E78.4 Other hyperlipidemia (principal)

== ENCOUNTER 2017-06-08 14:42 | Inpatient (IN) | payer OTHER, BC ==
[~2017-06-08] VITALS: Ht 167.6 cm; Wt 77.8 kg
[~2017-06-08 14:42] MED LIST changes: -BACI500O11 NAE; -FURO40TA3 PO; -GABA-112 PO; -GABA1CAP4 PO; -HYDR1AER23 PR; +HYDRAER4 PR; -LCTS240 PO; -LPR25 PO; -LSX20 PO; -METO1TAB54 PO; -SALI0.658 NAE; -SALI1SPR3 NAE; -SPIR50TA2 PO
--- NOTE | 2017-06-08 15:02 | EMERGENCY ROOM VISIT NOTE ---
History Report prepared by Rg: Enio Sanches Under the Supervision of: Dr. Fernando Madsen D.O. First contact with patient: 14:45 Chief Complaint: OTHER COMPLAINT Stated Complaint: ABD DISTENTION History of Present Illness The patient is a 86 year old male who presents to the Emergency Room with complaints of abdominal distention that began 3-5 days ago. The patient lives at [facility] currently. Per the nursing staff there, he has been constipated and distended for this time. However, their main concern was that he had a GI bleed last year. The staff was getting low blood pressure readings, and he looks pale. Per the patient, his abdominal distention and constipation is normal for him per IBS. He is dizzy with standing. He denies any fevers, chest pain, or shortness of breath. Source of History: patient Onset: 3-5 days ago Position: abdomen Symptom Intensity: moderate Quality: other (Distention) Timing: constant Associated Symptoms: No fevers, No chest pain, No SOB Note: He has been constipated. He is dizzy with standing. Review of Systems See HPI for pertinent positives & negatives. A total of 10 systems reviewed and were otherwise negative. 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 (8) CORONARY ATHEROSCLEROSIS OF [place] CORONARY VESSEL (9) Diabetes (10) GI bleed (11) Heart disease (12) Heart murmur (13) Herpes zoster (14) Hypertension (15) HYPERTENSION NOS (16) Inguinal hernia (17) Malignant melanoma Surgical Problems: (1) History of herniorrhaphy Family History Cancer Heart disease Hypertension Social History Smoking Status: Never Smoker Alcohol Use: occasionally Drug Use: none Marital Status: Housing Status: lives with significant other Occupation Status: retired Current/Historical Medications Scheduled Allopurinol (Allopurinol), 100 MG PO QAM Ascorbic Acid (Vitamin C), 500 MG PO QAM Bacitracin (Topical) (Bacitracin), 1 APPLN LUIS BID Cholecalciferol (Vitamin D), 2,000 UNIT PO QAM Coenzyme Q10 (Ubidecarenone) (Coq10), 100 MG PO QAM Cyanocobalamin (Vitamin B12), 1,000 MCG PO QAM Ferrous Sulfate (Kp Ferrous Sulfate), 325 MG PO BID Finasteride (Proscar), 5 MG PO QAM Fluticasone Propionate (Nasal) (Flonase Allergy Relief Ch), 2 SPRAY LUIS DAILY Furosemide (Furosemide), 1 TAB PO DAILY Gabapentin (Neurontin), 100 MG PO DAILY Gabapentin (Gabapentin), 1 TAB PO HS Magnesium Oxide (Mag-Ox), 400 MG PO Q2D Metoclopramide Hcl (Reglan), 5 MG PO ACHS Metoprolol Tartrate (Lopressor), 1 TAB PO Q12 Omeprazole (Prilosec), 20 MG PO BID Pyridoxine (Vitamin B6), 100 MG PO QAM Saline ([place] Nasal Drops), 1 DROPS LUIS QAM Saline (Saline Nasal [place]), 4 PUFFS LUIS BID Trazodone HCl (Trazodone HCl), 150 MG PO HS Scheduled PRN Acetaminophen (Tylenol), 650 MG MN Q4 PRN for ELEVATED TEMPERATURE Acetaminophen Tab (Tylenol), 650 MG PO Q4H PRN for RN Bisacodyl (Bisacodyl), 10 MG MN DAILY PRN for Constipation Hydrocortisone/Pramoxine (Proctofoam Hc), 1 APPL MN Q6 PRN for HEMORRHOID PAIN Magnesium Hydroxide (Milk of Magnesia), 30 ML PO DAILY PRN for 2 DAYS NO BM Ondansetron Hcl (Zofran), 4 MG PO Q6 PRN for Nausea Oxycodone HCl (Oxycodone HCl), 5 MG PO Q4 PRN for Pain Sodium Phosphate/Biphosphate (Fleet Enema), 1 EA MN DAILY PRN for Constipation Allergies Coded Allergies: No Known Allergies (Verified , 06/08/17) Physical Exam Vital Signs Date Time Temp Pulse Resp B/P (MAP) Pulse Ox O2 Delivery O2 Flow Rate FiO2 06/08/17 18:09 Room Air 06/08/17 17:40 65 22 110/60 94 Room Air 06/08/17 15:42 68 22 119/73 97 Room Air 06/08/17 15:13 68 06/08/17 14:57 36.7 65 18 114/72 94 Room Air Physical Exam GENERAL: Patient is awake, alert, and in no acute distress. Patient is resting comfortably and showing no signs of anxiety. EYES: The conjunctivae are clear. The pupils are round and reactive. EARS, NOSE, MOUTH AND THROAT: The nose is without any evidence of any deformity. Mucous membranes are moist tongue is midline NECK: The neck is nontender and supple. RESPIRATORY: Breath sounds are diminished in the left base. Rales noted in the left base as well. Mild tachypnea noted on conversation. CARDIOVASCULAR: Regular rate and rhythm noted there no murmurs rubs or gallops normal S1 normal S2 GASTROINTESTINAL: The abdomen is soft. Bowel sounds are present in all quadrants. Abdomen is nontender. Moderately distended. No guarding or rigidity. MUSCULOSKELETAL/EXTREMITIES: There is no evidence of gross deformity full range of motion is noted in the hips and shoulders SKIN: There is no obvious evidence of any rash. There are no petechiae, pallor or cyanosis noted. NEUROLOGIC: Patient is awake alert and oriented x3. Medical Decision & Procedures ER Provider Diagnostic Interpretation: Radiology results as stated below per my review and radiologist interpretation: CHEST ONE VIEW PORTABLE CLINICAL HISTORY: ABDOMINAL PAIN/GI pain COMPARISON STUDY: 10/18/2016 FINDINGS: Stable cardiomegaly. Stable prominence of the mid mediastinum. Diaphragms smooth. Lungs are clear. IMPRESSION: Chronic change. No acute process. The above report was generated using voice recognition software. It may contain grammatical, syntax or spelling errors. Electronically signed by: Jim Rutherford M.D. 06/08/2017 3:23 PM Dictated Date/Time: 06/08/2017 3:22 PM ABD/PELVIS NO IV OR ORAL CONT CT DOSE: 789.84 mGycm HISTORY: Distention abd distention TECHNIQUE: Multiaxial CT images of the abdomen and pelvis were performed without contrast. A dose lowering technique was utilized adhering to the principles of ALARA. COMPARISON STUDY: 02/21/2017 FINDINGS: Right pleural effusion unchanged in the prior study. Significant abdominal and pelvic ascites. Cirrhotic liver morphology. Contracted gallbladder nonobstructive bowel pattern. Bladder is midline. No significant abdominal pelvic or inguinal adenopathy. Stable 5.1 cm aneurysm abdominal aorta. Degenerative changes of the osseous structures throughout.. Kidneys negative for hydronephrosis. Mild body wall anasarca. IMPRESSION: 1. Considerable abdominal and pelvic ascites. 2. Nonobstructive bowel pattern. 3. Right pleural effusion unchanged in the prior study. 4. Cirrhotic liver morphology and unchanged from the prior exam. The above report was generated using voice recognition software. It may contain grammatical, syntax or spelling errors. Electronically signed by: Jim Rutherford M.D. 06/08/2017 3:45 PM Dictated Date/Time: 06/08/2017 3:40 PM Laboratory Results 06/08/17 15:15 Red Blood Count 2.94, Mean Corpuscular Volume 98.0, Mean Corpuscular Hemoglobin 30.6, Mean Corpuscular Hemoglobin Concent 31.3, Mean Platelet Volume 10.7, Neutrophils (%) (Auto) 66.1, Lymphocytes (%) (Auto) 21.0, Monocytes (%) (Auto) 10.3, Eosinophils (%) (Auto) 2.4, Basophils (%) (Auto) 0.2, Neutrophils # (Auto ) 2.70, Lymphocytes # (Auto) 0.86, Monocytes # (Auto) 0.42, Eosinophils # (Auto ) 0.10, Basophils # (Auto) 0.01 06/08/17 15:15 Test 06/08/17 15:15 06/08/17 16:32 White Blood Count 4.09 K/uL (4.8-10.8) Red Blood Count 2.94 M/uL (4.7-6.1) Hemoglobin 9.0 g/dL (14.0-18.0) Hematocrit 28.8 % (42-52) Mean Corpuscular Volume 98.0 fL (80-100) Mean Corpuscular Hemoglobin 30.6 pg (25-34) Mean Corpuscular Hemoglobin Concent 31.3 g/dl (32-36) Platelet Count 108 K/uL (130-400) Mean Platelet Volume 10.7 fL (7.4-10.4) Neutrophils (%) (Auto) 66.1 % Lymphocytes (%) (Auto) 21.0 % Monocytes (%) (Auto) 10.3 % Eosinophils (%) (Auto) 2.4 % Basophils (%) (Auto) 0.2 % Neutrophils # (Auto) 2.70 K/uL (1.4-6.5) Lymphocytes # (Auto) 0.86 K/uL (1.2-3.4) Monocytes # (Auto) 0.42 K/uL (0.11-0.59) Eosinophils # (Auto) 0.10 K/uL (0-0.5) Basophils # (Auto) 0.01 K/uL (0-0.2) RDW Standard Deviation 66.4 fL (36.4-46.3) RDW Coefficient of Variation 19.0 % (11.5-14.5) Immature Granulocyte % (Auto) 0.0 % Immature Granulocyte # (Auto) 0.00 K/uL (0.00-0.02) Prothrombin Time 12.7 SECONDS (9.0-12.0) Prothromb Time International Ratio 1.2 (0.9-1.1) Activated Partial Thromboplast Time 25.5 SECONDS (21.0-31.0) Partial Thromboplastin Ratio 1.0 Anion Gap 6.0 mmol/L (3-11) Est Creatinine Clear Calc Drug Dose 23.2 ml/min Estimated GFR () 29.9 Estimated GFR (Non- 25.8 BUN/Creatinine Ratio 25.8 (10-20) Calcium Level 8.4 mg/dl (8.5-10.1) Total Bilirubin 0.4 mg/dl (0.2-1) Direct Bilirubin 0.2 mg/dl (0-0.2) Aspartate Amino Transf (AST/SGOT) 23 U/L (15-37) Alanine Aminotransferase (ALT/SGPT) 20 U/L (12-78) Alkaline Phosphatase 108 U/L (45-117) Troponin I 0.021 ng/ml (0-0.045) Pro-B-Type Natriuretic Peptide 02390 pg/ml (0-1800) Total Protein 7.0 gm/dl (6.4-8.2) Albumin 3.3 gm/dl (3.4-5.0) Lipase 261 U/L (73-393) Thyroid Stimulating Hormone (TSH) 1.730 uIu/ml (0.300-4.500) Urine Color YELLOW Urine Appearance CLEAR (CLEAR) Urine pH 5.0 (4.5-7.5) Urine Specific [place] 1.022 (1.000-1.030) Urine Protein NEG (NEG) Urine Glucose (UA) NEG (NEG) Urine Ketones NEG (NEG) Urine Occult Blood NEG (NEG) Urine Nitrite NEG (NEG) Urine Bilirubin NEG (NEG) Urine Urobilinogen NEG (NEG) Urine Leukocyte Esterase NEG (NEG) Laboratory results per my review. Medications Administered Medications (Trade) Dose Ordered Sig/Jossie Route Start Time Stop Time Status Last Admin Dose Admin Sodium Chloride 500 ml @ 999 mls/hr Q31M STAT IV 06/08/17 15:57 06/08/17 16:27 DC 06/08/17 16:06 999 MLS/HR Sodium Chloride 1,000 ml @ 80 mls/hr [id number] IV 06/08/17 18:31 06/09/17 00:45 06/08/17 20:35 80 MLS/HR ECG Indication: abdominal pain (distention) Rate (beats per minute): 60 Rhythm: atrial fibrillation Findings: other (No PVCs, no acute ST segment abnormalities) Comparison ECG Date: February, Change: no significant change ED Course 1445: The patient was evaluated in room C11. A complete history and physical examination were performed. 1557: Ordered NSS 500 ml @ 999 mls/hr IV 1604: I spoke with Dr. Diamond of Gastroenterology at this time. They recommended that the patient be evaluated and treated further as an inpatient. 1649: Upon reevaluation, the patient is resting. I discussed results and treatment plan with him. He verbalizes agreement and understanding. I spoke with Dr. Matos of the [facility]. The patient will be evaluated for further management and care. Medical Decision Differential diagnosis: Etiologies such as appendicitis, diverticulitis, PUD, biliary pathology, UTI, pancreatitis, obstruction, mesenteric ischemia, aortic pathology, infections, inflammatory bowel disease, renal colic, as well as others were entertained. Nursing notes reviewed. The patient is an 86-year-old male who presented to emergency department for evaluation of abdominal distention and reported constipation. The patient has a history of a AAA and GI bleeding and so he was sent from the personal [facility] to the ER for further evaluation. I reviewed the patient's previous electronic medical records does show that he has had a history of ascites in the past it does not appear that this is been worked up completely. On CAT scan studies. Worsened and the patient is hypotensive and appears dehydrated. I discussed his case with the on-call power shear operator that his seen in the past. I also discussed his case with the on-call [facility] hospitalist. They've agreed to evaluate the patient in emergency apartment for further management and disposition. Medication Reconcilliation Current Medication List: was personally reviewed by me Blood Pressure Screening Patient's blood pressure: Normal blood pressure Blood pressure disposition: Did not require urgent referral Consults Time Called: 1600 Consulting Physician: Dr. Diamond - Gastroenterology Returned Call: 1604 We discussed the patient's case. They would like the patient to be evaluated further as an inpatient. Additional Consults: Time Called: 1645 Consulted Physician: Dr. Matos - [facility] Returned Call: 1649 Additional Comments: I discussed the patient's case with him. The patient will be evaluated for further management. Impression Primary Impression: Abdominal pain Additional Impressions: Hypotension Ascites Acute kidney failure Scribe Attestation The scribe's documentation has been prepared under my direction and personally reviewed by me in its entirety. I confirm that the note above accurately reflects all work, treatment, procedures, and medical decision making performed by me. Departure Information Dispostion Being Evaluated By Hospitalist Referrals Tyler Miller (PCP) Patient Instructions My [facility] Problem Qualifiers Primary Impression: Abdominal pain Abdominal location: generalized Qualified Codes: R10.84 - Generalized abdominal pain Additional Impressions: Hypotension Hypotension type: unspecified hypotension type Qualified Codes: I95.9 - Hypotension, unspecified Ascites Ascites type: other type Qualified Codes: R18.8 - Other ascites Acute kidney failure Acute renal failure type: unspecified Qualified Codes: N17.9 - Acute kidney failure, unspecified
--- NOTE | 2017-06-08 15:24 | DIAGNOSTIC IMAGING REPORT ---
CHEST ONE VIEW PORTABLE CLINICAL HISTORY: ABDOMINAL PAIN/GI pain COMPARISON STUDY: 10/18/2016 FINDINGS: Stable cardiomegaly. Stable prominence of the mid mediastinum. Diaphragms smooth. Lungs are clear. IMPRESSION: Chronic change. No acute process. The above report was generated using voice recognition software. It may contain grammatical, syntax or spelling errors. Electronically signed by: Jim Rutherford M.D. 06/08/2017 3:23 PM Dictated Date/Time: 06/08/2017 3:22 PM
[2017-06-08 15:32] LABS: BASO % 0.2 %; BASO ABS # 0.01 K/uL (0-0.2); COMPLETE YES; EOS % 2.4 %; HEMATOCRIT 28.8 % (42-52); LYMPH ABS # 0.86 K/uL (1.2-3.4); MEAN CORPUSCULAR HEMOGLOBIN 30.6 pg (25-34); MEAN CORPUSCULAR HGB CONC 31.3 g/dl (32-36); MEAN PLATELET VOLUME 10.7 fL (7.4-10.4); MONO % 10.3 %; NEUT % 66.1 %; PLATELET COUNT 108 K/uL (130-400); RED BLOOD COUNT 2.94 M/uL (4.7-6.1); WHITE BLOOD COUNT 4.09 K/uL (4.8-10.8)
[2017-06-08 15:42] LABS: INR 1.2 (0.9-1.1); PROTHROMBIN TIME (PATIENT) 12.7 SECONDS (9.0-12.0)
--- NOTE | 2017-06-08 15:46 | DIAGNOSTIC IMAGING REPORT ---
ABD/PELVIS NO IV OR ORAL CONT CT DOSE: 789.84 mGycm HISTORY: Distention abd distention TECHNIQUE: Multiaxial CT images of the abdomen and pelvis were performed without contrast. A dose lowering technique was utilized adhering to the principles of ALARA. COMPARISON STUDY: 02/21/2017 FINDINGS: Right pleural effusion unchanged in the prior study. Significant abdominal and pelvic ascites. Cirrhotic liver morphology. Contracted gallbladder nonobstructive bowel pattern. Bladder is midline. No significant abdominal pelvic or inguinal adenopathy. Stable 5.1 cm aneurysm abdominal aorta. Degenerative changes of the osseous structures throughout.. Kidneys negative for hydronephrosis. Mild body wall anasarca. IMPRESSION: 1. Considerable abdominal and pelvic ascites. 2. Nonobstructive bowel pattern. 3. Right pleural effusion unchanged in the prior study. 4. Cirrhotic liver morphology and unchanged from the prior exam. The above report was generated using voice recognition software. It may contain grammatical, syntax or spelling errors. Electronically signed by: Jim Rutherford M.D. 06/08/2017 3:45 PM Dictated Date/Time: 06/08/2017 3:40 PM
[2017-06-08 15:47] LABS: BUN/CREATININE RATIO 25.8 (10-20); CALCIUM 8.4 mg/dl (8.5-10.1); CREATININE 2.2 mg/dl (0.60-1.40); POTASSIUM 4.4 mmol/L (3.5-5.1)
[2017-06-08] MEDS ORDERED: SODIUM CHLORIDE 0.9% 500ML 500 ML IV STA (15:57)
[2017-06-08] MEDS ORDERED: GABA-112 PO (16:22)
[2017-06-08] MEDS ORDERED: SALI0.658 NAE (16:22)
[2017-06-08] MEDS ORDERED: GABA1CAP4 PO (16:26)
[2017-06-08] MEDS ORDERED: LSX20 PO (16:26)
[2017-06-08] MEDS ORDERED: BACI500O11 NAE (16:31)
[2017-06-08] MEDS ORDERED: LPR25 PO (16:32)
[2017-06-08] MEDS ORDERED: SALI1SPR3 NAE (16:34)
[2017-06-08] MEDS ORDERED: METO1TAB54 PO (16:36)
[2017-06-08 16:49] LABS: URINE APPEARANCE CLEAR (CLEAR); URINE BILIRUBIN NEG (NEG); URINE COLOR YELLOW; URINE NITRITE NEG (NEG); URINE SPECIFIC GRAVITY 1.022 (1.000-1.030); UROBILINOGEN NEG (NEG)
[2017-06-08 16:50] LABS: MANUAL MICROSCOPIC REQUIRED? NO; REVIEW REQ? NO
[2017-06-08 18:09] VITALS: Ht 167.6 cm; Wt 77.8 kg
[2017-06-08] MEDS ORDERED: SODIUM CHLORIDE 0.9% 1000ML 1,000 ML IV SCH (18:31)
[2017-06-08] MEDS ORDERED: BISACODYL 10 MG SUPP PR PRN (18:45)
[2017-06-08] MEDS ORDERED: MAGNESIUM HYDROXIDE SUSP 30 ML UDC PO PRN (18:45)
[2017-06-08] MEDS ORDERED: OXYCODONE HCL IR 5 MG TAB (IMMEDIATE RELEASE) PO PRN (18:45)
[2017-06-08] MEDS ORDERED: ONDANSETRON INJ 2 MG/ML 2 ML VIAL IV PRN (18:45)
[2017-06-08] MEDS ORDERED: NITROGLYCERIN 0.4 MG SL PER TAB CHARGE SL PRN (18:45)
--- NOTE | 2017-06-08 18:51 | Medical Student: [facility] ---
Med Student History & Physical Date & Time of Service: Jun 08, 2017 at 18:30 Chief Complaint: Abd Distention Primary Care Physician: Tyler Miller History of Present Illness Abhijeet is an 86 yo male with multiple medical issues including diabetes , afib, HTN, AAA, and CAD who presents following 3-5 days of constipation and progressive abdominal distension for the past 4-5 years. He lives in [facility] living and they thought he did not look well and decided to bring him to the hospital. He has a history of non-alcoholic liver dysfunction, and a history of severe GI bleed requiring treatment at [place] and requiring "27 units of blood" (per patient's recollection). He denies fevers, chills, n/v/d, mental status changes, hallucination, paraesthesias, and skin color changes. Past Medical/Surgical History Medical Problems: (1) Abdominal pain Status: Acute (2) Acute kidney failure Status: Acute (3) Aortic aneurysm Status: Acute (4) Ascites Status: Acute (5) Failure of outpatient treatment Status: Acute (6) Hematuria Status: Acute (7) Hypotension Status: Acute (8) Hypotension Status: Acute (9) Hypoxia Status: Acute (10) Inguinal hernia Status: Acute (11) PNA (pneumonia) Status: Acute (12) Severe anemia Status: Acute (13) Thrombocytopenia Status: Acute (14) Unstable angina Status: Acute Surgical Problems: (1) History of herniorrhaphy Status: Resolved Social History Smoking Status: Never Smoker Alcohol Use: occasionally Drug Use: none Marital Status: Housing status: lives with significant other Occupational Status: retired Allergies Coded Allergies: No Known Allergies (Verified , 06/08/17) Medications Acetaminophen (Tylenol), 650 MG PA Q4 PRN for ELEVATED TEMPERATURE Acetaminophen Tab (Tylenol), 650 MG PO Q4H PRN for RN Allopurinol (Allopurinol), 100 MG PO QAM Ascorbic Acid (Vitamin C), 500 MG PO QAM Bacitracin (Topical) (Bacitracin), 1 APPLN LUIS BID Bisacodyl (Bisacodyl), 10 MG [place] DAILY PRN for Constipation Cholecalciferol (Vitamin D), 2,000 UNIT PO QAM Coenzyme Q10 (Ubidecarenone) (Coq10), 100 MG PO QAM Cyanocobalamin (Vitamin B12), 1,000 MCG PO QAM Ferrous Sulfate (Kp Ferrous Sulfate), 325 MG PO BID Finasteride (Proscar), 5 MG PO QAM Fluticasone Propionate (Nasal) (Flonase Allergy Relief Ch), 2 SPRAY LUIS DAILY Furosemide (Furosemide), 1 TAB PO DAILY Gabapentin (Neurontin), 100 MG PO DAILY Gabapentin (Gabapentin), 1 TAB PO HS Hydrocortisone/Pramoxine (Proctofoam Hc), 1 APPL PA Q6 PRN for HEMORRHOID PAIN Magnesium Hydroxide (Milk of Magnesia), 30 ML PO DAILY PRN for 2 DAYS NO BM Magnesium Oxide (Mag-Ox), 400 MG PO Q2D Metoclopramide Hcl (Reglan), 5 MG PO ACHS Metoprolol Tartrate (Lopressor), 1 TAB PO Q12 Omeprazole (Prilosec), 20 MG PO BID Ondansetron Hcl (Zofran), 4 MG PO Q6 PRN for Nausea Oxycodone HCl (Oxycodone HCl), 5 MG PO Q4 PRN for Pain Pyridoxine (Vitamin B6), 100 MG PO QAM Saline ([place] Nasal Drops), 1 DROPS LUIS QAM Saline (Saline Nasal [place]), 4 PUFFS LUIS BID Sodium Phosphate/Biphosphate (Fleet Enema), 1 EA [place] DAILY PRN for Constipation Trazodone HCl (Trazodone HCl), 150 MG PO HS Review of Systems Constitutional: No fever, No chills, No sweats, No weight loss, No weakness, No problem reported Eyes: + worsening of vision (chronic), No eye pain, No redness, No discharge, No diplopia ENT: + hearing loss (chronic), + unusual epistaxis (about a month ago), No nasal symptoms, No sore throat, No tinnitus, No trouble swallowing Respiratory: No cough, No sputum, No wheezing, No shortness of breath, No dyspnea on exertion, No dyspnea at rest, No hemoptysis, No problem reported Cardiovascular: No chest pain, No orthopnea, No PND, No edema, No claudication , No palpitations, No problem reported Abdomen: + constipation, No pain, No nausea, No vomiting, No diarrhea, No GI bleeding Musculoskeletal: No swelling, No calf pain Genitourinary - Male: No hematuria, No dysuria, No urinary frequency, No urinary urgency, No urinary hesitancy, No urinary retention, No urinary incontinence, No problem reported Psychiatric: No depression symptoms, No anxiety, No insomnia Endocrine: No fatigue, No excessive thirst, No excessive urination Hematologic / Lymphatic: No abnormal bleeding/bruising, No swollen lymph nodes Allergic / Immunologic: No problem reported Physical Exam Vital Signs (24 Hours) Date Time Temp Pulse Resp B/P (MAP) Pulse Ox O2 Delivery O2 Flow Rate FiO2 06/08/17 15:42 68 22 119/73 97 Room Air 06/08/17 15:13 68 06/08/17 14:57 36.7 65 18 114/72 94 Room Air General Appearance: WD/WN, no apparent distress Head: normocephalic, atraumatic Eyes: normal inspection, sclerae normal ENT: normal ENT inspection, hearing grossly normal, + pertinent finding ( Geographic tongue. Dry oral mucosa) Neck: supple, no adenopathy, no carotid bruits, trachea midline, + JVD Respiratory/Chest: chest non-tender, lungs clear, normal breath sounds, no respiratory distress, no accessory muscle use Cardiovascular: regular rate, rhythm, no edema, no gallop, normal peripheral pulses, + systolic murmur (loud crescendo decrescendo, heard best at LLSB) Abdomen/GI: normal bowel sounds, non tender, no organomegaly, no pulsatile mass , + distended, + pertinent finding (positive fluid wave) Extremities/Musculoskelatal: normal inspection, no calf tenderness, normal capillary refill, non-tender Neurologic/Psych: alert, normal mood/affect, normal reflexes, + pertinent finding (Mental processing seems abnormal. Generally, he seems to answer questions in an odd way, and seems mildly slowed.) Diagnostics Laboratory Results Results Past 24 Hours Test 06/08/17 15:15 06/08/17 16:32 Range/Units White Blood Count 4.09 4.8-10.8 K/uL Red Blood Count 2.94 4.7-6.1 M/uL Hemoglobin 9.0 14.0-18.0 g/dL Hematocrit 28.8 42-52 % Mean Corpuscular Volume 98.0 80-100 fL Mean Corpuscular Hemoglobin 30.6 25-34 pg Mean Corpuscular Hemoglobin Concent 31.3 32-36 g/dl Platelet Count 108 130-400 K/uL Mean Platelet Volume 10.7 7.4-10.4 fL Neutrophils (%) (Auto) 66.1 % Lymphocytes (%) (Auto) 21.0 % Monocytes (%) (Auto) 10.3 % Eosinophils (%) (Auto) 2.4 % Basophils (%) (Auto) 0.2 % Neutrophils # (Auto) 2.70 1.4-6.5 K/uL Lymphocytes # (Auto) 0.86 1.2-3.4 K/uL Monocytes # (Auto) 0.42 0.11-0.59 K/uL Eosinophils # (Auto) 0.10 0-0.5 K/uL Basophils # (Auto) 0.01 0-0.2 K/uL RDW Standard Deviation 66.4 36.4-46.3 fL RDW Coefficient of Variation 19.0 11.5-14.5 % Immature Granulocyte % (Auto) 0.0 % Immature Granulocyte # (Auto) 0.00 0.00-0.02 K/uL Prothrombin Time 12.7 9.0-12.0 SECONDS Prothromb Time International Ratio 1.2 0.9-1.1 Activated Partial Thromboplast Time 25.5 21.0-31.0 SECONDS Partial Thromboplastin Ratio 1.0 Sodium Level 142 136-145 mmol/L Potassium Level 4.4 3.5-5.1 mmol/L Chloride Level 111 98-107 mmol/L Carbon Dioxide Level 25 21-32 mmol/L Anion Gap 6.0 3-11 mmol/L Blood Urea Nitrogen 57 7-18 mg/dl Creatinine 2.20 0.60-1.40 mg/dl Est Creatinine Clear Calc Drug Dose 23.2 ml/min Estimated GFR () 29.9 Estimated GFR (Non- 25.8 BUN/Creatinine Ratio 25.8 10-20 Random Glucose 122 70-99 mg/dl Calcium Level 8.4 8.5-10.1 mg/dl Total Bilirubin 0.4 0.2-1 mg/dl Direct Bilirubin 0.2 0-0.2 mg/dl Aspartate Amino Transf (AST/SGOT) 23 15-37 U/L Alanine Aminotransferase (ALT/SGPT) 20 12-78 U/L Alkaline Phosphatase 108 45-117 U/L Troponin I 0.021 0-0.045 ng/ml Pro-B-Type Natriuretic Peptide 28364 0-1800 pg/ml Total Protein 7.0 6.4-8.2 gm/dl Albumin 3.3 3.4-5.0 gm/dl Lipase 261 73-393 U/L Urine Color YELLOW Urine Appearance CLEAR CLEAR Urine pH 5.0 4.5-7.5 Urine Specific [place] 1.022 1.000-1.030 Urine Protein NEG NEG Urine Glucose (UA) NEG NEG Urine Ketones NEG NEG Urine Occult Blood NEG NEG Urine Nitrite NEG NEG Urine Bilirubin NEG NEG Urine Urobilinogen NEG NEG Urine Leukocyte Esterase NEG NEG Impression Assessment and Plan Abhijeet is an 86 yo male with multiple medical conditions who presents with findings suggestive of ascites as a result of portal hypertension. Ascites in setting of portal hypertension: - CT showed about 5cm deep ascites worse on Right side. CT negative for bowel obstruction. AAA stable. No other pathologies seen on CT. - Physical exam supports diagnosis - He is currently stable and seems only mildly discomforted. Vitals within normal limits. - He seems intravascularly dehydrated at this time - Plan to drain ascitic fluid for therapeutic relief - correction therapy could involve a TIPS procedure, but with his age and comorbidities, this is unlikely to happen - IV hydration to restore intravascular volume AFib: - Non-symptomatic - Currently anticoagulated to some degree from hepatic failure - History of severe GI bleed - Monitor on telemetry, especially during and following drainage procedure - Treat with metoprolol if worsening of afib Diabetes: - Hold home meds - Start sliding scale insulin HTN: - Continue to monitor, as he is currently hypotensive Advanced Directives Existing Living Will: Yes Existing Power of Gis Software Engineer: Yes
[2017-06-08 20:00] VITALS: BP 116/68; PULSE 75; TEMP 36; O2SAT 93
--- NOTE | 2017-06-08 20:24 | History and Physical ---
History & Physical Date & Time of Service: Jun 08, 2017 at 19:59 Chief Complaint: Abd Distention Primary Care Physician: Tyler Miller History of Present Illness Source: patient, hospital records 86yo male with previous diagnosis of cirrhosis, HTN, AAA, chronic diastolic CHF , CKD stage 3, a. fib, and prior h/o severe GI bleeding requiring copious PRBCs and transfer to tertiary care who presents with concerns of worsening abdominal distension. He is a very poor historian and states "I guess the girls at [facility] wanted me to come over." When asked how long he has had abdominal swelling he states "for months." He denies abdominal pain, diarrhea, nausea, or emesis. He complains of being thirsty during the visit. He c/o some element of constipation. Denies any dyspnea despite the abdominal swelling. When asked about his cirrhosis he stated he was not aware he had such a diagnosis. While in the ER he underwent CT abd/pelvis demonstrating a moderate-large amount of ascites. 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 no prior etoh use CKD stage 3 - baseline Cr high 1's Type 2 Diabetes mellitus Peripheral neuropathy Dyslipidemia Gout Hypertension Incomplete bladder emptying Irritable bowel syndrome Osteoporosis Severe mitral regurgitation Lacunar stroke History of severe GI bleeding - 10/2016 - requiring transfer to 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) Multi-Drug Resistant Organisms History of MDRO: No Allergies Coded Allergies: No Known Allergies (Verified , 06/08/17) Home Medications Scheduled Allopurinol (Allopurinol), 100 MG PO QAM Ascorbic Acid (Vitamin C), 500 MG PO QAM Bacitracin (Topical) (Bacitracin), 1 APPLN LUIS BID Cholecalciferol (Vitamin D), 2,000 UNIT PO QAM Coenzyme Q10 (Ubidecarenone) (Coq10), 100 MG PO QAM Cyanocobalamin (Vitamin B12), 1,000 MCG PO QAM Ferrous Sulfate (Kp Ferrous Sulfate), 325 MG PO BID Finasteride (Proscar), 5 MG PO QAM Fluticasone Propionate (Nasal) (Flonase Allergy Relief Ch), 2 SPRAY LUIS DAILY Furosemide (Furosemide), 1 TAB PO DAILY Gabapentin (Neurontin), 100 MG PO DAILY Gabapentin (Gabapentin), 1 TAB PO HS Magnesium Oxide (Mag-Ox), 400 MG PO Q2D Metoclopramide Hcl (Reglan), 5 MG PO ACHS Metoprolol Tartrate (Lopressor), 1 TAB PO Q12 Omeprazole (Prilosec), 20 MG PO BID Pyridoxine (Vitamin B6), 100 MG PO QAM Saline ([place] Nasal Drops), 1 DROPS LUIS QAM Saline (Saline Nasal [place]), 4 PUFFS LUIS BID Trazodone HCl (Trazodone HCl), 150 MG PO HS Scheduled PRN Acetaminophen (Tylenol), 650 MG WI Q4 PRN for ELEVATED TEMPERATURE Acetaminophen Tab (Tylenol), 650 MG PO Q4H PRN for RN Bisacodyl (Bisacodyl), 10 MG WI DAILY PRN for Constipation Hydrocortisone/Pramoxine (Proctofoam Hc), 1 APPL WI Q6 PRN for HEMORRHOID PAIN Magnesium Hydroxide (Milk of Magnesia), 30 ML PO DAILY PRN for 2 DAYS NO BM Ondansetron Hcl (Zofran), 4 MG PO Q6 PRN for Nausea Oxycodone HCl (Oxycodone HCl), 5 MG PO Q4 PRN for Pain Sodium Phosphate/Biphosphate (Fleet Enema), 1 EA WI DAILY PRN for Constipation Review of Systems Constitutional: No fever, No chills, No fatigue Eyes: No worsening of vision ENT: No nasal symptoms, No sore throat, No trouble swallowing Respiratory: No cough, No sputum, No wheezing, No shortness of breath Cardiovascular: No chest pain, No orthopnea, No PND, No edema Abdomen: + constipation, No pain, No nausea, No vomiting, No diarrhea, No GI bleeding Musculoskeletal: No joint pain Genitourinary - Male: No dysuria Neurologic: No paralysis, No weakness Psychiatric: No depression symptoms Endocrine: No fatigue Hematologic / Lymphatic: + abnormal bleeding/bruising Integumentary: No rash Physical Exam Vital Signs Date Time Temp Pulse Resp B/P (MAP) Pulse Ox O2 Delivery O2 Flow Rate FiO2 06/08/17 18:50 65 20 124/80 93 Room Air 06/08/17 18:09 Room Air 06/08/17 17:40 65 22 110/60 94 Room Air 06/08/17 15:42 68 22 119/73 97 Room Air 06/08/17 15:13 68 06/08/17 14:57 36.7 65 18 114/72 94 Room Air General Appearance: no apparent distress, + pertinent finding (poor historian, slightly confused) Head: normocephalic, atraumatic Eyes: PERRL, sclerae normal (no icterus), + pertinent finding (lens implants present b/l) ENT: + pertinent finding (MM dry, geographic tongue, no lesions) Neck: + JVD Respiratory/Chest: lungs clear, normal breath sounds, no respiratory distress, no accessory muscle use Cardiovascular: no gallop, + systolic murmur (3-4/6 holosystolic murmur heard loudest RUSB), + irregularly irregular Abdomen/GI: normal bowel sounds, non tender, no organomegaly, + distended ( with ascites with fluid wave), + pertinent finding (dilated superficial veins on abdominal wall) Back: + pertinent finding (bruise on left flank) Extremities/Musculoskelatal: no pedal edema Neurologic/Psych: alert, normal reflexes, + pertinent finding (strength 5/5 x 4 exts; no asterixis ) Skin: + pertinent finding (stasis changes feet/ankles/shins) Lymphatic: no adenopathy (no cervical lymphadenopathy ) Diagnostics Laboratory Results Results Past 24 Hours Test 06/08/17 15:15 06/08/17 16:32 06/08/17 19:10 Range/Units White Blood Count 4.09 4.8-10.8 K/uL Red Blood Count 2.94 4.7-6.1 M/uL Hemoglobin 9.0 14.0-18.0 g/dL Hematocrit 28.8 42-52 % Mean Corpuscular Volume 98.0 80-100 fL Mean Corpuscular Hemoglobin 30.6 25-34 pg Mean Corpuscular Hemoglobin Concent 31.3 32-36 g/dl Platelet Count 108 130-400 K/uL Mean Platelet Volume 10.7 7.4-10.4 fL Neutrophils (%) (Auto) 66.1 % Lymphocytes (%) (Auto) 21.0 % Monocytes (%) (Auto) 10.3 % Eosinophils (%) (Auto) 2.4 % Basophils (%) (Auto) 0.2 % Neutrophils # (Auto) 2.70 1.4-6.5 K/uL Lymphocytes # (Auto) 0.86 1.2-3.4 K/uL Monocytes # (Auto) 0.42 0.11-0.59 K/uL Eosinophils # (Auto) 0.10 0-0.5 K/uL Basophils # (Auto) 0.01 0-0.2 K/uL RDW Standard Deviation 66.4 36.4-46.3 fL RDW Coefficient of Variation 19.0 11.5-14.5 % Immature Granulocyte % (Auto) 0.0 % Immature Granulocyte # (Auto) 0.00 0.00-0.02 K/uL Prothrombin Time 12.7 9.0-12.0 SECONDS Prothromb Time International Ratio 1.2 0.9-1.1 Activated Partial Thromboplast Time 25.5 21.0-31.0 SECONDS Partial Thromboplastin Ratio 1.0 Sodium Level 142 136-145 mmol/L Potassium Level 4.4 3.5-5.1 mmol/L Chloride Level 111 98-107 mmol/L Carbon Dioxide Level 25 21-32 mmol/L Anion Gap 6.0 3-11 mmol/L Blood Urea Nitrogen 57 7-18 mg/dl Creatinine 2.20 0.60-1.40 mg/dl Est Creatinine Clear Calc Drug Dose 23.2 ml/min Estimated GFR () 29.9 Estimated GFR (Non- 25.8 BUN/Creatinine Ratio 25.8 10-20 Random Glucose 122 70-99 mg/dl Calcium Level 8.4 8.5-10.1 mg/dl Total Bilirubin 0.4 0.2-1 mg/dl Direct Bilirubin 0.2 0-0.2 mg/dl Aspartate Amino Transf (AST/SGOT) 23 15-37 U/L Alanine Aminotransferase (ALT/SGPT) 20 12-78 U/L Alkaline Phosphatase 108 45-117 U/L Troponin I 0.021 0-0.045 ng/ml Pro-B-Type Natriuretic Peptide 19839 0-1800 pg/ml Total Protein 7.0 6.4-8.2 gm/dl Albumin 3.3 3.4-5.0 gm/dl Lipase 261 73-393 U/L Thyroid Stimulating Hormone (TSH) 1.730 0.300-4.500 uIu/ml Urine Color YELLOW Urine Appearance CLEAR CLEAR Urine pH 5.0 4.5-7.5 Urine Specific [place] 1.022 1.000-1.030 Urine Protein NEG NEG Urine Glucose (UA) NEG NEG Urine Ketones NEG NEG Urine Occult Blood NEG NEG Urine Nitrite NEG NEG Urine Bilirubin NEG NEG Urine Urobilinogen NEG NEG Urine Leukocyte Esterase NEG NEG Ammonia 41.0 11-32 umol/L Diagnostic Radiology 1. cxr, portable, no edema or infiltrates 2. CT abd/pelvis - IMPRESSION: 1. Considerable abdominal and pelvic ascites. 2. Nonobstructive bowel pattern. 3. Right pleural effusion unchanged in the prior study. 4. Cirrhotic liver morphology and unchanged from the prior exam. EKG my reading: a. fib, rate about 60; IRBBB, LAFB, no ST changes Impression Assessment and Plan 86yo male with previous diagnosis of cirrhosis, HTN, AAA, chronic diastolic CHF , CKD stage 3, a. fib, and prior h/o severe GI bleeding presenting with worsening abdominal distension due to ascites. 1. cirrhosis with decompensation and ascites - I suspect his cirrhosis is due to CURTIS. He has no prior h/o etoh use and hepatitis serologies in the past were negative. He has evidence of portal HTN with known esophageal varices, hemorrhoids, etc. GI consultation requested. Plan to keep patient comfortable overnight and perform therapeutic paracentesis in the AM. I do not suspect SBP given the lack of abdominal pain/tenderness, fever, leukocytosis, etc. Check ammonia level. Continue beta rubens. He appears total body volume overloaded but intravascularly dry. Will hold lasix today. 2. acute kidney failure in setting of CKD stage 3 - received 1 L of NS in the ER; will give additional 500cc of NS overnight then saline lock. Repeat BMP am. 3. a. fib - rates controlled with metoprolol. 4. pancytopenia - likely due to cirrhosis. TSH, b12, folate, etc in the recent past have been normal. CBC in am for stability. 5. AAA - stable on CT today. 6. h/o CAD - no ischemic symptoms at this time. He is not on asa or plavix due to h/o massive GI bleeding. Continue beta rubens. 7. chronic diastolic CHF - appears compensated with clear lungs. Continue beta rubens. 8. DVT proph - SCDs for now pending paracentesis in am. 9. HTN - controlled. 10. FEN - lytes are stable; check mag in AM; AHA diet. NS x 500cc then saline lock. 11. BPH - continue home meds. 12. severe - noted. Avoid afterload reduction. 13. history of stroke - noted. He is not on secondary stroke prevention, presumably due to prior GI bleeding. 14. GI proph - chronically takes PPI twice daily. code status - DNR, level 5. Advanced Directives Existing Advance Directive: Yes Existing Living Will: Yes Existing Power of Event Staff Member: Yes Existing Health Care Proxy: Yes Resuscitation Status DO NOT RESUSCITATE VTE Prophylaxis VTE Risk Assessment Done? Y/N: Yes Risk Level: Moderate Given or contraindicated: SCD's Social Service Consult Lives in Retirement Note total visit time about 60 minutes Additional Copies To Tyler Miller
[2017-06-08] MEDS ORDERED: LACTULOSE SYRUP 10 GM/15 ML BTL 473 ML PO ONE (20:30)
[2017-06-08] MEDS: METOPROLOL TARTRATE 25 MG TAB PO SCH (21:50)
[2017-06-08] MEDS: GABAPENTIN 300 MG CAP PO SCH (21:51)
[2017-06-08] MEDS: TRAZODONE HCL 100 MG TAB PO SCH (21:51)
[2017-06-08] MEDS: PANTOprazole SOD 40 MG TAB PO SCH (21:52)
[2017-06-08] MEDS: SODIUM CHLORIDE 0.65% NA SOLN 45 ML (OCEAN) NAE SCH (21:58)
[2017-06-08] MEDS: METOCLOPRAMIDE HCL 5 MG TAB PO SCH (21:58)
[2017-06-08 23:12] VITALS: BP 95/62; PULSE 59; TEMP 36.8; O2SAT 93
[2017-06-09] VITALS (10 sets, daily range): BP systolic 99–119; BP diastolic 59–94; PULSE 48–76; TEMP 36.5–36.9; O2SAT 91–97
[2017-06-09] MEDS: METOCLOPRAMIDE HCL 5 MG TAB PO SCH ×4 (06:28→20:13)
[2017-06-09 06:42] LABS: HEMATOCRIT 27.5 % (42-52); MEAN CELL VOLUME 98.2 fL (80-100); MEAN CORPUSCULAR HEMOGLOBIN 29.6 pg (25-34); MEAN CORPUSCULAR HGB CONC 30.2 g/dl (32-36); WHITE BLOOD COUNT 3.49 K/uL (4.8-10.8)
[2017-06-09 06:47] LABS: PLATELET COUNT 92 K/uL (130-400)
[2017-06-09 07:16] LABS: BUN/CREATININE RATIO 27.2 (10-20); CREATININE 1.9 mg/dl (0.60-1.40); MAGNESIUM 2.8 mg/dl (1.8-2.4); POTASSIUM 4.1 mmol/L (3.5-5.1)
[2017-06-09 07:47] LABS: PLT ESTIMATE DECREASED
[2017-06-09] MEDS: SODIUM CHLORIDE 0.65% NA SOLN 45 ML (OCEAN) NAE SCH ×2 (08:17→20:13)
[2017-06-09] MEDS: FERROUS SULFATE 325 MG TAB PO SCH ×2 (08:17→17:13)
[2017-06-09] MEDS: FLUTICASONE PROPIONATE NA SPR 16 GM BTL NAE SCH (08:17)
[2017-06-09] MEDS: METOPROLOL TARTRATE 25 MG TAB PO SCH ×2 (08:18→20:12)
[2017-06-09] MEDS: PANTOprazole SOD 40 MG TAB PO SCH ×2 (08:21→20:12)
[2017-06-09] MEDS: FINASTERIDE 5 MG TAB PO SCH (08:21)
[2017-06-09] MEDS: PYRIDOXINE HCL 50 MG TAB PO SCH (08:22)
[2017-06-09] MEDS: ALLOPURINOL 100 MG TAB PO SCH (08:22)
--- NOTE | 2017-06-09 10:28 | DIAGNOSTIC IMAGING REPORT ---
LIMITED ABDOMINAL ULTRASOUND FOR ASCITES EVALUATION CLINICAL HISTORY: Ascites. Physician request to yuliana largest pocket. COMPARISON STUDY: CT scan of the abdomen pelvis dated 06/08/2017 FINDINGS: There is moderate ascites. The patient was placed with is left-sided elevated. In this position, there is a large pocket of ascites within the right lower quadrant. This was marked for possible subsequent paracentesis. IMPRESSION: Moderate ascites. Electronically signed by: Manas Bautista M.D. 06/09/2017 10:27 AM Dictated Date/Time: 06/09/2017 10:25 AM
[2017-06-09] MEDS: GABAPENTIN 100 MG CAP PO SCH (12:02)
[2017-06-09] MEDS: ALBUMIN HUMAN 25% 12.5 GM/50 ML VIAL IV SCH ×2 (15:30→16:42)
--- NOTE | 2017-06-09 15:45 | GASTROINTESTINAL CONSULTATION ---
DATE OF CONSULTATION: 06/09/2017 AGE: 86. SEX: Male. RACE: . ATTENDING PHYSICIAN: Dr. Harley. CONSULTING PHYSICIAN: Dr. Norman. REASON FOR CONSULTATION: Ascites. HISTORY OF PRESENT ILLNESS: Abhijeet Lanza is an 86-year-old male who has a known history of ascites, which was felt to be cardiogenic as his prior SAAG was greater than 1.1 and his total protein was greater than 2.5 on prior workup of his ascitic fluid in August of 2015. He returned to the Department of Emergency Medicine on June 08 with increased abdominal girth and upon arrival to the ER, was noted to have elevated BUN and creatinine of 57 and 2.2. He also was noted to have H&H of 9.0 and 28.8. He underwent a CT scan of the abdomen and pelvis, which noted considerable abdominal and pelvic ascites and nonobstructive bowel pattern and a right-sided pleural effusion with cirrhotic liver morphology, unchanged from his prior CT of the abdomen and pelvis. He was subsequently admitted. He did undergo an abdominal ultrasound to yuliana an area for a paracentesis and I spoke with Dr. Harley earlier today and his team will carry out a diagnostic and therapeutic paracentesis at the earliest possible time. It should be noted that the patient has undergone a workup prior with [facility] gastroenterology including a most recent upper endoscopy in October of 2016, at which time he was noted to have grade 2 esophageal varices and some gastritis. His most recent colonoscopy was performed by Dr. Diamond in September 2015, at which time he was noted to have diverticulosis as well as internal hemorrhoids, but no other findings. At the time that I saw the patient today, he denied any abdominal pain, though he is a poor historian. He denied any hematemesis, melena or hematochezia as well. When asked why he presented to the ER, he states that his made him come. He denies any other complaints at this time. PAST MEDICAL HISTORY: Significant for cardiogenic ascites, anemia, abdominal aortic aneurysm 5 cm, aortic insufficiency, severe aortic stenosis, coronary artery disease, diastolic heart failure, CURTIS cirrhosis, chronic kidney disease, type 2 diabetes mellitus, peripheral neuropathy, dyslipidemia, gout, hypertension, incomplete bladder emptying, osteoporosis, irritable bowel syndrome, mitral regurgitation, lacunar stroke, history of severe GI bleeding, pancytopenia, and a history of melanoma. PAST SURGICAL HISTORY: Hand surgery, tonsillectomy, cataract surgery, and inguinal hernia repair. ALLERGIES: None. MEDICATIONS: At the present time include Mag-Ox 400 mg p.o. every second day, Zyloprim 100 mg p.o. q.a.m., Proscar 5 mg p.o. q.a.m., Flonase 2 sprays via each nostril daily, Neurontin 100 mg p.o. daily, vitamin B6 at 100 mg p.o. q.a.m., Feosol 325 mg p.o. b.i.d., Neurontin 300 mg p.o. at bedtime, Reglan 5 mg p.o. a.c. and at bedtime, Lopressor 25 mg p.o. q. 12 hours, Protonix 40 mg p.o. b.i.d., Desyrel 150 mg p.o. at bedtime, Zofran 4 mg IV q. 6 hours p.r.n. nausea, Nitrostat 0.4 mg sublingual as directed as needed for chest pain, Dulcolax suppository 10 mg per rectum daily as needed for constipation, milk of magnesia 30 mL p.o. daily p.r.n. no bowel movement for 2 days, and oxycodone 5 mg p.o. q. 4 hours p.r.n. pain. SOCIAL HISTORY: He currently resides at [facility] and lives with his . He has 3 children. He denies any smoking, alcohol or illicit drug use. FAMILY HISTORY: Negative for GI malignancy or inflammatory bowel disease. REVIEW OF SYSTEMS: Unobtainable secondary to his dementia. PHYSICAL EXAMINATION: VITAL SIGNS: Includes a temp 36.9, pulse 63, respirations 18, blood pressure 117/82, and pulse ox 96% on room air. GENERAL: He is awake, cooperative, chronic ill appearing, in no acute distress. HEAD: Normocephalic and atraumatic. EYES: Pupils equally round. Extraocular muscles are intact. Sclerae are nonicteric. ENT: External evaluation of ears and nose is normal. Oropharynx is clear. NECK: Soft and supple. No JVD or lymphadenopathy. CHEST: Clear to auscultation bilaterally. CARDIOVASCULAR SYSTEM: Regular rate and rhythm. ABDOMEN: Soft and nontender. It is distended with positive fluid wave. There is no appreciable hepatosplenomegaly. EXTREMITIES: No clubbing, cyanosis, or edema. LABORATORY STUDIES AND RADIOGRAPHIC STUDIES: Reviewed in the HPI. IMPRESSION: An 86-year-old male with ascites from questionable congestive hepatopathy from right-sided heart failure versus nonalcoholic steatohepatitis cirrhosis. PLAN: I would recommend that the patient's ascitic fluid studies to be sent for cell count with diff, culture and sensitivity, albumin, total protein, LDH, bilirubin and cytology. Following the return of ascitic fluid studies, further recommendations can be made regarding the need for diuretic therapy. Also, I would recommend monitoring the patient for signs of overt GI blood loss as he does have a history of esophageal varices, though his most recent endoscopy was performed by Dr. Diamond in October of 2016. PAULY
--- NOTE | 2017-06-09 15:48 | GASTROINTESTINAL CONSULTATION ---
DATE OF CONSULTATION: 06/09/2017 ADDENDUM PLAN: I would recommend that the patient's ascitic fluid studies to be sent for cell count with diff, culture and sensitivity, albumin, total protein, LDH, bilirubin and cytology. Following the return of ascitic fluid studies, further recommendations can be made regarding the need for diuretic therapy. Also, I would recommend monitoring the patient for signs of overt GI blood loss as he does have a history of esophageal varices, though his most recent endoscopy was performed by Dr. Diamond in October of 2016 ____. DICTATION ENDS HERE. MTDD
[2017-06-09] MEDS ORDERED: LIDOCAINE HCL 1% 20 ML VIAL ONE (16:13)
[2017-06-09 17:38] LABS: PERIT FL WBC 243 /uL (0-300); PERITONEAL FLUID RBC 45000 /uL
--- NOTE | 2017-06-09 17:48 | Procedure Note ---
Procedure Note Procedure Date Jun 09, 2017. Procedure Description Procedure Name: abdominal paracentesis Procedure time out: side/site verified, patient ID confirmed, correct procedure Consent obtained: written Time of procedure: 16:05 Performed by: attending, resident (Dr. Fili Echevarria, PGY3) Indications: diagnostic, therapeutic Contraindications: none Description: Earlier in the day the patient had the largest pocket of ascitic fluid marked by ultrasound in radiology. This was in the RLQ. After betadine prep and draping using sterile technique, 4cc of 1% lidocaine was used to anesthetize the skin and subcutaneous tissues. Using a standard thoracentesis kit a blunted tip catheter was introduced into the peritoneal cavity using Seldinger technique. There was immediate return of dark, serosanguinous fluid. There was no gross blood. About 800cc of fluid was collected into standard vacutainer bottles. The procedure was stopped after there was no additional free flowing fluid. About 50cc was sent for fluid analysis including gram stain, culture, cell counts, differential, total protein, albumin, LDH, and cytologies. The patient tolerated the procedure well. Vital signs remained stable the entire procedure. As a precaution to prevent post-procedure ascites leaking one 3-0 prolene suture was used to close the needle track. The procedure was performed by Dr. Fili Echevarria, PGY3, and assisted in its entirety by Dr. Jay Harley. Jay Harley MD Complications: none Patient tolerated procedure: well Post-procedure vital signs: reviewed and stable
[2017-06-09] MEDS ORDERED: FUROSEMIDE 40 MG TAB PO ONE (18:00)
--- NOTE | 2017-06-09 19:57 | Progress Note ---
Subjective Date of Service: Jun 09, 2017. Subjective Pt evaluation today including: conversation w/ patient, physical exam, chart review, lab review, review of studies (abd u/s), conversation w/ political consultant (GI) , review of inpatient medication list Pain: denies abd pain PO Intake: normal Voiding: no voiding problems tele stable overnight had large BM last night after lactulose - feels better but still w/ bloating from ascites feels more mentally sharp today denies dyspnea or orthopnea Problem List Medical Problems: (1) Abdominal pain Status: Acute (2) Acute kidney failure Status: Acute (3) Aortic aneurysm Status: Acute (4) Ascites Status: Acute (5) Failure of outpatient treatment Status: Acute (6) Hematuria Status: Acute (7) Hypotension Status: Acute (8) Hypotension Status: Acute (9) Hypoxia Status: Acute (10) Inguinal hernia Status: Acute (11) PNA (pneumonia) Status: Acute (12) Severe anemia Status: Acute (13) Thrombocytopenia Status: Acute (14) Unstable angina Status: Acute Review of Systems Constitutional: No fever, No chills Respiratory: No cough, No sputum Cardiac: No chest pain, No orthopnea Abdomen: No pain, No nausea, No vomiting, No diarrhea, No GI bleeding Objective Vital Signs Date Time Temp Pulse Resp B/P (MAP) Pulse Ox O2 Delivery O2 Flow Rate FiO2 06/09/17 16:00 97 Room Air 06/09/17 15:05 36.5 70 112/72 (85) 93 Room Air 06/09/17 12:15 96 Room Air 06/09/17 12:00 36.9 63 18 117/82 (94) 96 Room Air 06/09/17 07:59 36.5 76 19 119/79 (92) 96 Room Air 06/09/17 07:45 91 Room Air 06/09/17 04:00 91 Room Air 06/09/17 03:33 36.8 48 16 99/59 (72) 92 Room Air 06/09/17 00:00 93 Room Air 06/08/17 23:12 36.8 59 18 95/62 (73) 93 Room Air 06/08/17 20:00 36.0 75 116/68 (84) 93 Room Air 06/08/17 20:00 93 Room Air 06/08/17 18:50 65 20 124/80 93 Room Air 06/08/17 18:09 Room Air Physical Exam General Appearance: no apparent distress ENT: pharynx normal Neck: + JVD Respiratory/Chest: no respiratory distress, no accessory muscle use, + rales ( mild, bases) Cardiovascular: regular rate, rhythm, no gallop, + systolic murmur (3-4/6 holosystolic murmur RUSB) Abdomen: normal bowel sounds, non tender, no organomegaly, + distended (w/ ascites), + pertinent finding (+fluid wave) Extremities: no pedal edema Neurologic/Psychiatric: alert, oriented x 3, + pertinent finding (more awake and sharp today) Laboratory Results Last 24 Hours Test 06/08/17 19:10 06/09/17 00:00 06/09/17 06:03 Ammonia 41.0 umol/L Peritoneal Fluid Color RED Peritoneal Fluid Appearance BLOODY Peritoneal Fluid WBC 243 /uL Peritoneal Fluid RBC 69480 /uL White Blood Count 3.49 K/uL Red Blood Count 2.80 M/uL Hemoglobin 8.3 g/dL Hematocrit 27.5 % Mean Corpuscular Volume 98.2 fL Mean Corpuscular Hemoglobin 29.6 pg Mean Corpuscular Hemoglobin Concent 30.2 g/dl RDW Standard Deviation 67.5 fL RDW Coefficient of Variation 19.0 % Platelet Count 92 K/uL Mean Platelet Volume 10.0 fL Platelet Estimate DECREASED Sodium Level 143 mmol/L Potassium Level 4.1 mmol/L Chloride Level 113 mmol/L Carbon Dioxide Level 26 mmol/L Anion Gap 4.0 mmol/L Blood Urea Nitrogen 52 mg/dl Creatinine 1.90 mg/dl Est Creatinine Clear Calc Drug Dose 26.9 ml/min Estimated GFR () 35.7 Estimated GFR (Non- 30.8 BUN/Creatinine Ratio 27.2 Random Glucose 94 mg/dl Calcium Level 8.0 mg/dl Magnesium Level 2.8 mg/dl Assessment and Plan 86yo male with previous diagnosis of cirrhosis, HTN, AAA, chronic diastolic CHF , CKD stage 3, a. fib, severe , and prior h/o severe GI bleeding who presented with worsening abdominal distension due to ascites. 1. cirrhosis with decompensation and ascites - I suspect his cirrhosis is due to CURTIS. He has no prior h/o etoh use and hepatitis serologies in the past were negative. He has evidence of portal HTN with known esophageal varices, hemorrhoids, etc. GI consultation requested and appreciated. s/p diagnostic/therapeutic paracentesis today - see procedure note. await fluid studies. fluid grossly very suspicious for malignancy. 2. acute kidney failure in setting of CKD stage 3 - BRUNO improved, Cr now at baseline. Fluids have been stopped. 3. a. fib - rates controlled with metoprolol. 4. pancytopenia - likely due to cirrhosis. TSH, b12, folate, etc in the recent past have been normal. CBC stable today. 5. AAA - stable on CT yesterday. 6. h/o CAD - no ischemic symptoms at this time. He is not on asa or plavix due to h/o massive GI bleeding. Continue beta rubens. 7. chronic diastolic CHF - appears compensated with clear lungs. Continue beta rubens. Resume lasix today. 8. DVT proph - SCDs for now. 9. HTN - controlled. 10. FEN - lytes are stable; AHA diet. Saline lock IV. 11. BPH - continue home meds. 12. severe - noted. Avoid afterload reduction. 13. history of stroke - noted. He is not on secondary stroke prevention, presumably due to prior GI bleeding. 14. GI proph - chronically takes PPI twice daily. 15. probable mild hepatic encephalopathy - improved today. cont lactulose 15cc daily. will help his constipation issues as well. PT, OT to ensure safe to return to assisted living at d/c code status - DNR, level 5. Discharge planning: other (assisted living at [facility])
[2017-06-09] MEDS: TRAZODONE HCL 100 MG TAB PO SCH (20:12)
[2017-06-09] MEDS: GABAPENTIN 300 MG CAP PO SCH (20:13)
[2017-06-10] VITALS (7 sets, daily range): BP systolic 90–128; BP diastolic 51–79; PULSE 58–84; TEMP 35.9–37.1; O2SAT 93–100
[2017-06-10 06:05] LABS: HEMATOCRIT 29.5 % (42-52); MEAN CELL VOLUME 98.7 fL (80-100); MEAN CORPUSCULAR HEMOGLOBIN 30.8 pg (25-34); MEAN CORPUSCULAR HGB CONC 31.2 g/dl (32-36); RED BLOOD COUNT 2.99 M/uL (4.7-6.1); WHITE BLOOD COUNT 4.26 K/uL (4.8-10.8)
[2017-06-10 06:12] LABS: MEAN PLATELET VOLUME 10.9 fL (7.4-10.4); PLATELET COUNT 93 K/uL (130-400)
[2017-06-10] MEDS: METOCLOPRAMIDE HCL 5 MG TAB PO SCH ×4 (06:18→21:03)
[2017-06-10 06:32] LABS: BUN/CREATININE RATIO 27.4 (10-20); CALCIUM 8.2 mg/dl (8.5-10.1); CREATININE 1.7 mg/dl (0.60-1.40); POTASSIUM 4.3 mmol/L (3.5-5.1)
[2017-06-10] MEDS: METOPROLOL TARTRATE 25 MG TAB PO SCH ×3 (07:38→21:04)
[2017-06-10] MEDS: FINASTERIDE 5 MG TAB PO SCH (07:38)
[2017-06-10] MEDS: PYRIDOXINE HCL 50 MG TAB PO SCH (07:38)
[2017-06-10] MEDS: GABAPENTIN 100 MG CAP PO SCH (07:39)
[2017-06-10] MEDS: PANTOprazole SOD 40 MG TAB PO SCH ×2 (07:39→21:05)
[2017-06-10] MEDS: ALLOPURINOL 100 MG TAB PO SCH (07:40)
[2017-06-10] MEDS: FERROUS SULFATE 325 MG TAB PO SCH ×2 (07:41→16:46)
[2017-06-10] MEDS: FLUTICASONE PROPIONATE NA SPR 16 GM BTL NAE SCH (07:41)
[2017-06-10] MEDS: SODIUM CHLORIDE 0.65% NA SOLN 45 ML (OCEAN) NAE SCH ×2 (07:42→21:05)
[2017-06-10] MEDS ORDERED: MAGNESIUM OXIDE 400 MG TAB PO SCH (09:00)
[2017-06-10] MEDS ORDERED: LACTULOSE SYRUP 20 GM/30 ML UDC PO SCH (09:00)
[2017-06-10] MEDS: FUROSEMIDE 40 MG TAB PO SCH (09:29)
--- NOTE | 2017-06-10 13:15 | PROGRESS NOTE ---
DATE: 06/10/2017 AGE: 86. SEX: Male. RACE: . I had the pleasure of seeing Abhijeet Lanza at his bedside today. He states he is feeling slightly improved from yesterday. He did tolerate p.o. intake and did have a small nonbloody bowel movement yesterday. He denies any fevers, chills, lightheadedness, dizziness, chest pain, palpitations, shortness of breath, cough, abdominal pain, nausea, vomiting, hematemesis, melena or hematochezia and has no further complaints. REVIEW OF SYSTEMS: Negative x10 system review. PHYSICAL EXAMINATION: VITAL SIGNS: Include a temp 36.8, pulse 60, respirations 21, blood pressure 128/79, and pulse ox 93% on room air. GENERAL: He is alert and oriented x3, cooperative, chronic ill appearing, in no acute distress. ABDOMEN: Soft and distended. Positive fluid wave. Obvious ascites and positive bowel sounds. LABORATORY STUDIES: From today include an H&H 9.2 and 29.5. His ascitic fluid studies showed findings consistent with portal hypertension with a serum ascites albumin gradient of greater than 1.1. There was no evidence of SBP based on ascitic fluid evaluation. IMPRESSION: An 86-year-old male with ascites from 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 PLAN: At the present time, I would recommend that the patient continue to receive Lasix 40 mg p.o. q.a.m. I would recommend considering the addition of Aldactone 100 mg p.o. daily and I will start this today. I would recommend continuing supportive care. DICTATION ENDS HERE.
[2017-06-10] MEDS ORDERED: SPIRONOLACTONE 25 MG TAB PO ONE (17:00)
--- NOTE | 2017-06-10 17:04 | Progress Note ---
Subjective Date of Service: Jun 10, 2017. Subjective Pt evaluation today including: conversation w/ patient, physical exam, chart review, lab review, conversation w/ information consultant (gastroenterolgoy ), review of inpatient medication list Pain: denies abd pain PO Intake: fair Voiding: no voiding problems tele stable with rate-controlled a. fib denies nausea, emesis, abd pain, diarrhea no bowel movement since 2 days ago denies orthopnea or dyspnea at rest very sleepy today; in fact he was falling asleep during the visit Problem List Medical Problems: (1) Abdominal pain Status: Acute (2) Acute kidney failure Status: Acute (3) Aortic aneurysm Status: Acute (4) Ascites Status: Acute (5) Failure of outpatient treatment Status: Acute (6) Hematuria Status: Acute (7) Hypotension Status: Acute (8) Hypotension Status: Acute (9) Hypoxia Status: Acute (10) Inguinal hernia Status: Acute (11) PNA (pneumonia) Status: Acute (12) Severe anemia Status: Acute (13) Thrombocytopenia Status: Acute (14) Unstable angina Status: Acute Review of Systems Constitutional: + fatigue, No fever, No chills Cardiac: No chest pain Abdomen: No pain, No nausea, No vomiting, No diarrhea, No constipation, No GI bleeding Objective Vital Signs Date Time Temp Pulse Resp B/P (MAP) Pulse Ox O2 Delivery O2 Flow Rate FiO2 06/10/17 15:27 Room Air 06/10/17 15:12 35.9 64 22 103/67 (79) 94 Room Air 06/10/17 11:59 36.8 60 21 128/79 (95) 93 Room Air 06/10/17 11:31 Room Air 06/10/17 10:37 58 93 06/10/17 08:00 Room Air 06/10/17 07:01 36.9 64 18 93/64 (74) 96 Room Air 06/10/17 04:00 Room Air 06/10/17 03:16 36.4 66 16 97/60 (72) 93 Room Air 06/10/17 00:00 Room Air 06/09/17 22:59 36.8 63 20 101/94 (96) 94 Room Air 06/09/17 20:00 Room Air Physical Exam General Appearance: no apparent distress, + pertinent finding (very sleepy) ENT: pharynx normal Neck: no JVD Respiratory/Chest: lungs clear, no respiratory distress, no accessory muscle use Cardiovascular: no gallop, + systolic murmur (3-4/6 holosystolic murmur RUSB), + irregularly irregular Abdomen: normal bowel sounds, non tender, soft, no organomegaly, + distended ( with +fluid wave) Extremities: no pedal edema Neurologic/Psychiatric: + pertinent finding (sleepy but no asterixis) Skin: + pertinent finding (suture in RLQ from paracentesis clean, w/o drainage , intact) Laboratory Results Last 24 Hours Test 06/09/17 19:17 06/10/17 05:19 Lactate Dehydrogenase 159 U/L Total Protein 7.2 gm/dl Albumin 3.5 gm/dl White Blood Count 4.26 K/uL Red Blood Count 2.99 M/uL Hemoglobin 9.2 g/dL Hematocrit 29.5 % Mean Corpuscular Volume 98.7 fL Mean Corpuscular Hemoglobin 30.8 pg Mean Corpuscular Hemoglobin Concent 31.2 g/dl RDW Standard Deviation 68.6 fL RDW Coefficient of Variation 19.2 % Platelet Count 93 K/uL Mean Platelet Volume 10.9 fL Sodium Level 144 mmol/L Potassium Level 4.3 mmol/L Chloride Level 113 mmol/L Carbon Dioxide Level 24 mmol/L Anion Gap 7.0 mmol/L Blood Urea Nitrogen 47 mg/dl Creatinine 1.70 mg/dl Est Creatinine Clear Calc Drug Dose 30.1 ml/min Estimated GFR () 40.8 Estimated GFR (Non- 35.2 BUN/Creatinine Ratio 27.4 Random Glucose 103 mg/dl Calcium Level 8.2 mg/dl Assessment and Plan 86yo male with previous diagnosis of cirrhosis, HTN, AAA, chronic diastolic CHF , CKD stage 3, a. fib, severe , and prior h/o severe GI bleeding who presented with worsening abdominal distension due to ascites. 1. cirrhosis with decompensation and ascites - I suspect his cirrhosis is due to CURTIS. He has no prior h/o etoh use and hepatitis serologies in the past were negative. He has evidence of portal HTN with known esophageal varices, hemorrhoids, etc. SAAG ratio on paracentesis was >1.1. GI consultation - Dr. Norman - appreciated. Thus far no evidence of SBP; culture remains negative. Await cytologies. Dr. Norman recommending starting aldactone. Need to do so carefully in light of severe aortic stenosis. First dose today. Cont lasix. Will need suture on abdominal wall removed in about 10 days from the paracentesis date. 2. acute kidney failure in setting of CKD stage 3 - BRUNO improved, Cr now at baseline. 3. a. fib - rates controlled with metoprolol. 4. pancytopenia - likely due to cirrhosis. TSH, b12, folate, etc in the recent past have been normal. CBC stable once again today. 5. AAA - stable on CT at admission. 6. h/o CAD - no ischemic symptoms at this time. He is not on asa or plavix due to h/o massive GI bleeding. Continue beta rubens. 7. chronic diastolic CHF - appears compensated; cont BB, lasix. 8. DVT proph - SCDs for now. 9. HTN - controlled. 10. FEN - lytes are stable; AHA diet. Saline lock IV. 11. BPH - continue home meds. 12. severe - noted. Avoid afterload reduction. 13. history of stroke - noted. He is not on secondary stroke prevention, presumably due to prior GI bleeding. 14. GI proph - chronically takes PPI twice daily. 15. probable mild hepatic encephalopathy - seems ongoing (very tired/sleepy). No bowel movement in 2 days. Increase lactulose to 15cc BID. PT, OT to ensure safe to return to assisted living at d/c code status - DNR, level 5 will update anticipate d/c back to [facility] on Sunday repeat labs in am Continued [facility] stay due to: other (ascites) Discharge planning: other (assisted living at [facility])
[2017-06-10] MEDS: LACTULOSE SYRUP 10 GM/15 ML BTL 473 ML PO SCH (17:57)
[2017-06-10] MEDS: GABAPENTIN 300 MG CAP PO SCH (21:03)
[2017-06-10] MEDS: TRAZODONE HCL 100 MG TAB PO SCH (21:04)
[2017-06-11 04:00] VITALS: BP 100/63; PULSE 59; TEMP 36.9; O2SAT 91
--- NOTE | 2017-06-11 07:35 | Progress Note ---
Subjective Date of Service: Jun 11, 2017. Problem List Medical Problems: (1) Abdominal pain Status: Acute (2) Acute kidney failure Status: Acute (3) Aortic aneurysm Status: Acute (4) Ascites Status: Acute (5) Failure of outpatient treatment Status: Acute (6) Hematuria Status: Acute (7) Hypotension Status: Acute (8) Hypotension Status: Acute (9) Hypoxia Status: Acute (10) Inguinal hernia Status: Acute (11) PNA (pneumonia) Status: Acute (12) Severe anemia Status: Acute (13) Thrombocytopenia Status: Acute (14) Unstable angina Status: Acute Objective Vital Signs Date Time Temp Pulse Resp B/P (MAP) Pulse Ox O2 Delivery O2 Flow Rate FiO2 06/11/17 04:36 Room Air 06/11/17 04:00 36.9 59 17 100/63 (75) 91 Room Air 06/11/17 00:36 Room Air 06/10/17 23:20 37.1 64 20 90/51 (64) 94 Room Air 06/10/17 20:35 Room Air 06/10/17 19:10 36.6 84 20 107/69 (82) 100 Room Air 06/10/17 15:27 Room Air 06/10/17 15:12 35.9 64 22 103/67 (79) 94 Room Air 06/10/17 11:59 36.8 60 21 128/79 (95) 93 Room Air 06/10/17 11:31 Room Air 06/10/17 10:37 58 93 06/10/17 08:00 Room Air Assessment and Plan 86yo male with previous diagnosis of cirrhosis, due to [place], presents with worsening ascites, chronic diastolic CHF, severe , a. fib, HTN, AAA. Previous severe GI bleeding cirrhosis with decompensation and ascites - history of portal HTN with known esophageal varices No evidence of SBP as culture remains negative. Dr. Norman recommending starting aldactone and lasix cautiously with history of severe Will need suture on abdominal wall removed in about 10 days from the paracentesis date pancytopenia - likely due to cirrhosis Hepatic encephalopathy, assure good bowel movements with lactulose Cardiac, Chronic diastolic heart failure, managed by diuretics, a. fib - rates controlled with metoprolol, . He is not on asa or plavix due to h/o massive GI bleeding. Acute on chronic kidney falure noted on admission improved AAA - stable on CT at admission. DVT proph - SCDs for now. GI proph - chronically takes PPI twice daily. PT, OT to ensure safe to return to assisted living at d/c code status - DNR, level 5 Continued [facility] stay due to: other (ascites) Discharge planning: other (assisted living at [facility])
[2017-06-11 08:19] VITALS: BP 129/68; PULSE 75; TEMP 36.8; O2SAT 93
[2017-06-11] MEDS: LACTULOSE SYRUP 10 GM/15 ML BTL 473 ML PO SCH (09:00)
--- NOTE | 2017-06-11 09:00 | Gastroenterology Progress Note ---
Progress Note Date of Service: Jun 11, 2017 Subjective Pt evaluation today including: conversation w/ patient, physical exam, chart review, lab review Pt was seen and evaluated this AM. He tells me he is very tired. He did not sleep well overnight. He has no GI complaints. Medications Current Inpatient Medications Medications (Trade) Dose Ordered Sig/Jossie Route Start Time Stop Time Status Last Admin Dose Admin Ondansetron HCl (Zofran Inj) 4 mg Q6H PRN IV 06/08/17 18:45 07/08/17 18:44 Nitroglycerin (Nitrostat Tab) 0.4 mg UD PRN SL 06/08/17 18:45 07/08/17 18:44 Allopurinol (Zyloprim Tab) 100 mg QAM PO 06/09/17 09:00 07/09/17 08:59 06/10/17 07:40 100 MG Bisacodyl (Dulcolax Supp) 10 mg DAILY PRN WA 06/08/17 18:45 07/08/17 18:44 Finasteride (Proscar Tab) 5 mg QAM PO 06/09/17 09:00 07/09/17 08:59 06/10/17 07:38 5 MG Fluticasone Propionate (Flonase Nasal Dante) 2 sprays DAILY LUIS 06/09/17 09:00 07/09/17 08:59 06/10/17 07:41 2 SPRAYS Gabapentin (Neurontin Cap) 300 mg HS PO 06/08/17 21:00 07/08/17 20:59 06/10/17 21:03 300 MG Gabapentin (Neurontin Cap) 100 mg DAILY PO 06/09/17 09:00 07/09/17 08:59 06/10/17 07:39 100 MG Magnesium Hydroxide (Milk Of Magnesia Susp) 30 ml DAILY PRN PO 06/08/17 18:45 07/08/17 18:44 Metoclopramide HCl (Reglan Tab) 5 mg ACHS PO 06/08/17 21:00 07/08/17 20:59 06/10/17 21:03 5 MG Metoprolol Tartrate (Lopressor Tab) 25 mg Q12 PO 06/08/17 21:00 07/08/17 20:59 06/10/17 21:04 25 MG Oxycodone HCl (Roxicodone Immediate Rel Tab) 5 mg Q4 PRN PO 06/08/17 18:45 06/22/17 18:44 06/08/17 20:33 5 MG Pyridoxine HCl (Vitamin B-6 Tab) 100 mg QAM PO 06/09/17 09:00 07/09/17 08:59 06/10/17 07:38 100 MG Sodium Chloride ([place] Nasal Dante) 2 sprays BID LUIS 06/08/17 21:00 07/08/17 20:59 06/10/17 21:05 2 SPRAYS Ferrous Sulfate (Feosol Tab) 325 mg BIDM PO 06/09/17 07:30 07/09/17 07:59 06/10/17 16:46 325 MG Pantoprazole Sodium (Protonix Tab) 40 mg BID PO 06/08/17 21:00 07/08/17 20:59 06/10/17 21:05 40 MG Trazodone HCl (Desyrel Tab) 150 mg HS PO 06/08/17 21:00 07/08/17 20:59 06/10/17 21:04 150 MG Furosemide (Lasix Tab) 40 mg QAM PO 06/10/17 09:00 07/10/17 08:59 06/10/17 09:29 40 MG Lactulose (Chronulac Syrup) 15 gm BID17 PO 06/10/17 17:00 07/10/17 08:59 06/10/17 17:57 15 GM Objective Vital Signs Date Time Temp Pulse Resp B/P (MAP) Pulse Ox O2 Delivery O2 Flow Rate FiO2 06/11/17 08:19 36.8 75 18 129/68 (88) 93 06/11/17 04:36 Room Air 06/11/17 04:00 36.9 59 17 100/63 (75) 91 Room Air 06/11/17 00:36 Room Air 06/10/17 23:20 37.1 64 20 90/51 (64) 94 Room Air 06/10/17 20:35 Room Air 06/10/17 19:10 36.6 84 20 107/69 (82) 100 Room Air 06/10/17 15:27 Room Air 06/10/17 15:12 35.9 64 22 103/67 (79) 94 Room Air 06/10/17 11:59 36.8 60 21 128/79 (95) 93 Room Air 06/10/17 11:31 Room Air 06/10/17 10:37 58 93 Assessment and Plan 86-year-old male with ascites from 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 History of ascites and varices. He does have a history of a GIB requiring transfer to a tertiary care center. This AM he is feeling well, just very tired. - Lasix 40 mg daily - Aldactone 100 mg daily - Continue BB - Continue lactulose - Continue supportive care - Bowel regimen - GI will sign off. Call with any questions or concerns. ATTESTATION: I have performed a history and physical examination of this patient and reviewed the electronic record. Specifically, on physical examination there is no abdominal tenderness. I have discussed the case with PAULINE Bennett. The above note reflects my findings, conclusions, and recommendations. Fernando Cobian MD
[2017-06-11] MEDS: FLUTICASONE PROPIONATE NA SPR 16 GM BTL NAE SCH (09:52)
[2017-06-11] MEDS: SODIUM CHLORIDE 0.65% NA SOLN 45 ML (OCEAN) NAE SCH (09:52)
[2017-06-11] MEDS: FERROUS SULFATE 325 MG TAB PO SCH (09:52)
[2017-06-11] MEDS: METOCLOPRAMIDE HCL 5 MG TAB PO SCH ×2 (09:52→11:00)
[2017-06-11] MEDS: METOPROLOL TARTRATE 25 MG TAB PO SCH (09:53)
[2017-06-11] MEDS: PANTOprazole SOD 40 MG TAB PO SCH (09:53)
[2017-06-11] MEDS: FUROSEMIDE 40 MG TAB PO SCH (09:53)
[2017-06-11] MEDS: FINASTERIDE 5 MG TAB PO SCH (09:53)
[2017-06-11] MEDS: GABAPENTIN 100 MG CAP PO SCH (09:53)
[2017-06-11] MEDS: ALLOPURINOL 100 MG TAB PO SCH (09:54)
[2017-06-11] MEDS: PYRIDOXINE HCL 50 MG TAB PO SCH (09:54)
[2017-06-11] MEDS ORDERED: FURO40TA3 PO (11:18)
[2017-06-11] MEDS ORDERED: LCTS240 PO (11:18)
[2017-06-11] MEDS ORDERED: SPIR50TA2 PO (11:20)
--- NOTE | 2017-06-11 11:21 | Discharge Instructions ---
Discharge Instructions Date of Service Jun 11, 2017. Admission Reason for Admission: Acute Kidney Failure, Ascities Discharge Discharge Diagnosis / Problem: ascites, s/p paracentesis, encephalopathy Discharge Goals Goal(s): Diagnostic testing, Therapeutic intervention Activity Recommendations Activity Limitations: resume your previous activity Please take lactulose for at least one or possibly two bowel movements a day you may increase or decrease you dosing to achieve this goal . Current Hospital Diet Patient's current hospital diet: AHA Diet (Heart Healthy) Discharge Diet Recommended Diet: Low Sodium Diet (2gm Na) Pending Studies Studies pending at discharge: no Laboratory Results Lipid Panel Test 04/23/17 05:15 Range/Units Triglycerides Level 54 0-150 mg/dl Cholesterol Level 98 0-200 mg/dl HDL Cholesterol 35 mg/dl Cholesterol/HDL Ratio 2.8 LDL Cholesterol, Calculated 52 mg/dl Medical Emergencies . Who to Call and When: Medical Emergencies: If at any time you feel your situation is an emergency, please call 911 immediately. . Non-Emergent Contact Non-Emergency issues call your: Primary Care Provider Call Non-Emergent contact if: temperature is above 101, your pain is unusual for you . . "Provider Documentation" section prepared by Adiel Rose. . VTE Core Measure Inpt VTE Proph given/why not?: SCD's
[2017-06-11 11:53] VITALS: BP 90/66; PULSE 66; TEMP 36.8; O2SAT 95
[2017-06-11 13:55] VITALS: BP 90/66; PULSE 66; TEMP 36.8; O2SAT 95
--- NOTE | 2017-06-11 17:08 | Discharge Summary ---
Discharge Summary Date of Service Jun 11, 2017. Discharge Summary Admission Date: Jun 08, 2017 at 18:36 Discharge Date: Jun 11, 2017 Discharge Disposition: Home with services Principal Diagnosis: symptomatic ascites, cirrhosis, encephalopathy Procedures: paracentesis Medication Reconciliation New Medications: Spironolactone (Aldactone) 50 Mg Tab 1 TAB PO DAILY for 30 Days, #30 TAB 3 Refills Lactulose (Chronulac) 10 Gm/15 Ml Syrp 15 GM PO BID17, #1000 ML 6 Refills Changed Medications: Furosemide (Lasix) 40 Mg Tab 1 TAB PO DAILY for 90 Days, #90 TAB 3 Refills (Changed from: Furosemide 20 Mg Tab 1 Tab PO DAILY) Continued Medications: Acetaminophen (Tylenol) 650 Mg Supp 650 MG VT Q4 PRN for ELEVATED TEMPERATURE Allopurinol (Allopurinol) 100 Mg Tab 100 MG PO QAM Ascorbic Acid (Vitamin C) 500 Mg Cap 500 MG PO QAM Bacitracin (Topical) (Bacitracin) 500 Unit/Gm Oin 1 APPLN LUIS BID Bisacodyl (Bisacodyl) 10 Mg Sup 10 MG VT DAILY PRN for Constipation Cholecalciferol (Vitamin D) 2,000 Unit Tab 2000 UNIT PO QAM Coenzyme Q10 (Ubidecarenone) (Coq10) 100 Mg Cap 100 MG PO QAM Cyanocobalamin (Vitamin B12) 1,000 Mcg Tab 1000 MCG PO QAM Ferrous Sulfate (Kp Ferrous Sulfate) 325 Mg Tab 325 MG PO BID for anemia, TAB Finasteride (Proscar) 5 Mg Tab 5 MG PO QAM, TAB Fluticasone Propionate (Nasal) (Flonase Allergy Relief Ch) 50 Mcg/Act Spr 2 SPRAY LUIS DAILY Gabapentin (Neurontin) 100 Mg Cap 100 MG PO DAILY, CAP Gabapentin (Gabapentin) 300 Mg Cap 1 TAB PO HS Hydrocortisone/Pramoxine (Proctofoam Hc) Aer 1 APPL VT Q6 PRN for HEMORRHOID PAIN, CAN Magnesium Hydroxide (Milk of Magnesia) 30 Ml Susp 30 ML PO DAILY PRN for 2 DAYS NO BM Magnesium Oxide (Mag-Ox) 400 Mg Tab 400 MG PO Q2D, TAB Metoclopramide Hcl (Reglan) 5 Mg Tab 5 MG PO ACHS for GERD, TAB Metoprolol Tartrate (Lopressor) 25 Mg Tab 1 TAB PO Q12 Omeprazole (Prilosec) 20 Mg Capcr 20 MG PO BID for 30 Days, #60 CAP Ondansetron Hcl (Zofran) 4 Mg Tab 4 MG PO Q6 PRN for Nausea, TAB Oxycodone HCl (Oxycodone HCl) 5 Mg Tab 5 MG PO Q4 PRN for Pain Pyridoxine (Vitamin B6) 100 Mg Tab 100 MG PO QAM, TAB Saline ([place] Nasal Drops) 0.65 % Miguel 1 DROPS LUIS QAM, ML Saline (Saline Nasal [place]) 0.65 % Spr 4 PUFFS LUIS BID Sodium Phosphate/Biphosphate (Fleet Enema) Amy 1 EA VT DAILY PRN for Constipation, BTL Trazodone HCl (Trazodone HCl) 150 Mg Tab 150 MG PO HS Discontinued Medications: Acetaminophen Tab (Tylenol) 325 Mg Tab 650 MG PO Q4H PRN for RN, TAB Discharge Exam Review of Systems: Constitutional: No fever, No chills Respiratory: + dyspnea on exertion, No cough, No sputum, No shortness of breath Cardiovascular: + edema, No chest pain Abdomen: No pain, No nausea, No constipation Physical Exam: General Appearance: WD/WN, + mild distress Respiratory/Chest: chest non-tender, + decreased breath sounds Cardiovascular: regular rate, rhythm, no murmur Abdomen / GI: + pertinent finding (distended non tender abdomen suggesting reaccumulation of ascites) Hospital Course 86yo male with previous diagnosis of cirrhosis, due to [place], presents with worsening ascites, chronic diastolic CHF, severe , a. fib, HTN, AAA. Previous severe GI bleeding cirrhosis with decompensation and ascites - history of portal HTN with known esophageal varices No evidence of SBP as culture negative. Dr. Norman recommending starting aldactone and lasix cautiously with history of severe Will need suture on abdominal wall removed in about 10 days from the paracentesis date pancytopenia - likely due to cirrhosis Hepatic encephalopathy, assure good bowel movements with lactulose, pt given instructions to have goal of 2 bowel movements a day Cardiac, Chronic diastolic heart failure, managed by diuretics, a. fib - rates controlled with metoprolol, . He is not on asa or plavix due to h/o massive GI bleeding. Acute on chronic kidney falure noted on admission improved AAA - stable on CT at admission. GI proph - chronically takes PPI twice daily. code status - DNR, level 5 Total Time Spent: Greater than 30 minutes This includes examination of the patient, discharge planning, medication reconciliation, and communication with other providers. Discharge Instructions Please refer to the electronic Patient Visit Report (Discharge Instructions) for additional information. Additional Copies To Vikas Cook M.D.
== END 2017-06-11 15:03 | disposition home or self-care (01) | DRG 433 ==
LOC: EDBD 14:42 → C.EDC 14:43 → C.2T 18:36 → ENRESERV 18:54
PROVIDERS: ADMIT Internal Medicine; ATTEND Internal Medicine
PROC: 0W9G3ZZ Drainage of Peritoneal Cavity, Percutaneous Approach (ICD-10-PCS; principal; 2017-06-09)
PROC: 0W9G3ZX Drainage of Peritoneal Cavity, Percutaneous Approach, Diagnostic (ICD-10-PCS; principal; 2017-06-09)
DX: K74.69 Other cirrhosis of liver (principal); N17.9 Acute kidney failure, unspecified; R18.8 Other ascites; K72.90 Hepatic failure, unspecified without coma; I50.32 Chronic diastolic (congestive) heart failure; I13.0 Hypertensive heart and chronic kidney disease with heart failure and stage 1 through stage 4 chronic kidney disease, or unspecified chronic kidney disease; K76.6 Portal hypertension; I85.10 Secondary esophageal varices without bleeding; J90 Pleural effusion, not elsewhere classified; I25.110 Atherosclerotic heart disease of native coronary artery with unstable angina pectoris; D61.818 Other pancytopenia; K76.0 Fatty (change of) liver, not elsewhere classified; I71.4 Abdominal aortic aneurysm, without rupture; I48.91 Unspecified atrial fibrillation; Z85.820 Personal history of malignant melanoma of skin; N18.3 Chronic kidney disease, stage 3 (moderate); I35.0 Nonrheumatic aortic (valve) stenosis; E08.40 Diabetes mellitus due to underlying condition with diabetic neuropathy, unspecified; K58.9 Irritable bowel syndrome, unspecified; N40.0 Benign prostatic hyperplasia without lower urinary tract symptoms; Z86.73 Personal history of transient ischemic attack (TIA), and cerebral infarction without residual deficits

== ENCOUNTER → 2017-06-14 | Outpatient (CLI) | payer OTHER, BC ==
[~2017-06-14] MED LIST changes: -ACET325T96 PO; +BACI500O11 NAE; -FRS/40 PO; +FURO40TA3 PO; +GABA-112 PO; +GABA1CAP4 PO; +LCTS240 PO; +LPR25 PO; +METO1TAB54 PO; -METO25TA3 PO; +SALI0.658 NAE; +SALI1SPR3 NAE; +SPIR50TA2 PO
[2017-06-14 09:41] LABS: BLOOD UREA NITROGEN 51 mg/dl (7-18); CALCIUM 8.5 mg/dl (8.5-10.1); CARBON DIOXIDE 27 mmol/L (21-32); CHLORIDE 105 mmol/L (98-107); GLUCOSE 94 mg/dl (70-99); POTASSIUM 4.7 mmol/L (3.5-5.1); SODIUM 141 mmol/L (136-145)
== END | disposition home or self-care (01) ==
LOC: C.LABFOXDH 08:59
PROVIDERS: ATTEND Internal Medicine
DX: I50.9 Heart failure, unspecified (principal)

== ENCOUNTER → 2017-06-26 | Outpatient (CLI) | payer OTHER, BC ==
--- NOTE | 2017-06-26 15:47 | DIAGNOSTIC IMAGING REPORT ---
LEFT SHOULDER 3 VIEWS HISTORY: M25.512 Left shoulder [id number] COMPARISON: Left shoulder 12/16/2014. FINDINGS: Old, healed distal left clavicle fracture. No acute fracture or dislocation within the left shoulder. Moderate AC joint arthrosis, unchanged. Mild osteoarthritis at the glenohumeral joint demonstrated by cartilage space narrowing and marginal osteophytes. This is not significantly changed. Soft tissues are unremarkable. No radiopaque foreign bodies. IMPRESSION: 1. 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 2. No acute fracture or dislocation. 3. Old, healed left clavicle fracture. Electronically signed by: Bryan Roman M.D. 06/26/2017 3:46 PM Dictated Date/Time: 06/26/2017 3:43 PM
== END | disposition home or self-care (01) ==
LOC: C.RAD1850 15:27
PROVIDERS: ATTEND Physician Assistant Medical
DX: M19.012 Primary osteoarthritis, left shoulder (principal)

== ENCOUNTER → 2017-07-16 | Outpatient (CLI) | payer OTHER, BC ==
[2017-07-16 08:51] LABS: BASO % 0.2 %; BASO ABS # 0.01 K/uL (0-0.2); COMPLETE YES; EOS % 5.8 %; HEMATOCRIT 30.8 % (42-52); IG% 0.2 %; LYMPH % 25.1 %; LYMPH ABS # 1.16 K/uL (1.2-3.4); MEAN CELL VOLUME 95.7 fL (80-100); MEAN CORPUSCULAR HEMOGLOBIN 31.7 pg (25-34); MEAN CORPUSCULAR HGB CONC 33.1 g/dl (32-36); MEAN PLATELET VOLUME 11.7 fL (7.4-10.4); MONO % 15.2 %; NEUT % 53.5 %; PLATELET COUNT 128 K/uL (130-400); RED BLOOD COUNT 3.22 M/uL (4.7-6.1); WHITE BLOOD COUNT 4.62 K/uL (4.8-10.8)
[2017-07-16 09:01] LABS: BLOOD UREA NITROGEN 100 mg/dl (7-18); BUN/CREATININE RATIO 38.4 (10-20); CARBON DIOXIDE 26 mmol/L (21-32); CHLORIDE 102 mmol/L (98-107); GLUCOSE 118 mg/dl (70-99); MAGNESIUM 2.8 mg/dl (1.8-2.4); PHOSPHORUS 5.3 mg/dl (2.5-4.9); POTASSIUM 5.3 mmol/L (3.5-5.1); SODIUM 135 mmol/L (136-145)
== END | disposition home or self-care (01) ==
LOC: C.LABFOXDH 08:36
PROVIDERS: ATTEND Internal Medicine Nephrology
DX: N18.3 Chronic kidney disease, stage 3 (moderate) (principal)

== ENCOUNTER → 2017-07-17 | Outpatient (CLI) | payer OTHER, BC ==
[2017-07-17 21:35] LABS: URINE APPEARANCE CLEAR (CLEAR); URINE BILIRUBIN NEG (NEG); URINE COLOR YELLOW; URINE EPITHELIAL CELL AUTO 0-5 /lpf (0-5); URINE NITRITE NEG (NEG); URINE SPECIFIC GRAVITY 1.022 (1.000-1.030); UROBILINOGEN NEG (NEG); ZZUR CULT IF INDIC CLEAN CATCH NO
[2017-07-17 21:42] LABS: MANUAL MICROSCOPIC REQUIRED? NO; REVIEW REQ? NO
[2017-07-17 22:08] LABS: URINE PROTIEN/CREAT RATIO 0.1 (0-0.2); URINE TOTAL PROTEIN 7.6 mg/dl (0-11.9)
--- NOTE | 2017-07-26 10:07 | CODING QUERY NO DIAGNOSIS ---
TREATMENT RENDERED WITHOUT A DIAGNOSIS 11/16/28 To promote full compliance with coding requirements relating to patient care, physician participation is requested in all cases of general maintenance mechanic uncertainty. Please assist us with providing a diagnosis/symptom for the test(s) below: A diagnosis/symptom was not documented on your Order. A valid diagnosis/symptom is required to bill all insurances. Please remember that we are unable to code a diagnosis of rule out, probable, possible, questionable, or suspected. DOS 07/17/17 Tests that require a diagnosis: * UA CLEAN MICROS + CULTURE DIAGNOSIS: * SODIUM RANDOM URINE DIAGNOSIS: * URINE PROTEIN DIAGNOSIS: Provider Signature: Date: Thank you [facility] Information Management Once completed, please kindly fax back to [phone] For questions please call [phone]
== END ==
LOC: C.LABFOXDH 10:19
PROVIDERS: ATTEND Internal Medicine Nephrology
DX: R30.0 Dysuria (principal); E87.1 Hypo-osmolality and hyponatremia; N18.3 Chronic kidney disease, stage 3 (moderate)

== ENCOUNTER → 2017-07-24 | Outpatient (CLI) | payer OTHER, BC ==
[2017-07-24 10:03] LABS: BLOOD UREA NITROGEN 70 mg/dl (7-18); CALCIUM 8.9 mg/dl (8.5-10.1); CARBON DIOXIDE 27 mmol/L (21-32); CHLORIDE 106 mmol/L (98-107); GLUCOSE 115 mg/dl (70-99); MAGNESIUM 2.7 mg/dl (1.8-2.4); POTASSIUM 4.7 mmol/L (3.5-5.1); SODIUM 140 mmol/L (136-145)
== END | disposition home or self-care (01) ==
LOC: C.LABFOXDH 09:19
PROVIDERS: ATTEND Internal Medicine Nephrology
DX: I50.9 Heart failure, unspecified (principal); N28.9 Disorder of kidney and ureter, unspecified

== ENCOUNTER → 2017-08-24 | Outpatient (CLI) | payer OTHER, BC ==
[~2017-08-24] MED LIST changes: +HYDR1AER23 PR; -HYDRAER4 PR
[2017-08-24 08:08] LABS: BLOOD UREA NITROGEN 56 mg/dl (7-18); BUN/CREATININE RATIO 28.9 (10-20); CALCIUM 8.4 mg/dl (8.5-10.1); CARBON DIOXIDE 26 mmol/L (21-32); CHLORIDE 110 mmol/L (98-107); CREATININE 1.94 mg/dl (0.60-1.40); GLUCOSE 110 mg/dl (70-99); MAGNESIUM 2.6 mg/dl (1.8-2.4); POTASSIUM 4.3 mmol/L (3.5-5.1); SODIUM 142 mmol/L (136-145)
[2017-08-24 08:09] LABS: PHOSPHORUS 3.8 mg/dl (2.5-4.9)
== END | disposition home or self-care (01) ==
LOC: C.LABFOXDH 07:50
PROVIDERS: ATTEND Internal Medicine Nephrology
DX: N28.9 Disorder of kidney and ureter, unspecified (principal)

== ENCOUNTER → 2017-09-13 | Outpatient (CLI) | payer OTHER, BC ==
[2017-09-13 09:51] LABS: BLOOD UREA NITROGEN 64 mg/dl (7-18); BUN/CREATININE RATIO 25.4 (10-20); CALCIUM 8.5 mg/dl (8.5-10.1); CARBON DIOXIDE 27 mmol/L (21-32); CHLORIDE 107 mmol/L (98-107); CREATININE 2.52 mg/dl (0.60-1.40); GLUCOSE 114 mg/dl (70-99); POTASSIUM 4.7 mmol/L (3.5-5.1); SODIUM 140 mmol/L (136-145)
== END | disposition home or self-care (01) ==
LOC: C.LABFOXDH 08:37
PROVIDERS: ATTEND Internal Medicine
DX: I50.9 Heart failure, unspecified (principal)

== ENCOUNTER → 2017-09-18 | Outpatient (CLI) | payer OTHER, BC ==
[2017-09-18 10:07] LABS: BLOOD UREA NITROGEN 64 mg/dl (7-18); BUN/CREATININE RATIO 29.9 (10-20); CALCIUM 8.8 mg/dl (8.5-10.1); CARBON DIOXIDE 25 mmol/L (21-32); CHLORIDE 108 mmol/L (98-107); CREATININE 2.14 mg/dl (0.60-1.40); GLUCOSE 104 mg/dl (70-99); POTASSIUM 5.1 mmol/L (3.5-5.1); SODIUM 143 mmol/L (136-145)
== END ==
LOC: C.LABFOXDH 08:44
PROVIDERS: ATTEND Internal Medicine
DX: R60.0 Localized edema (principal)

== ENCOUNTER → 2017-09-25 | Outpatient (CLI) | payer OTHER, BC ==
[2017-09-25 08:38] LABS: BLOOD UREA NITROGEN 57 mg/dl (7-18); BUN/CREATININE RATIO 26.5 (10-20); CALCIUM 8.7 mg/dl (8.5-10.1); CARBON DIOXIDE 21 mmol/L (21-32); CHLORIDE 109 mmol/L (98-107); CREATININE 2.16 mg/dl (0.60-1.40); GLUCOSE 101 mg/dl (70-99); POTASSIUM 5.7 mmol/L (3.5-5.1); SODIUM 140 mmol/L (136-145)
== END | disposition home or self-care (01) ==
LOC: C.LABFOXDH 08:17
PROVIDERS: ATTEND Internal Medicine Hospice and Palliative Medicine
DX: R18.8 Other ascites (principal)

== ENCOUNTER → 2017-10-02 | Outpatient (CLI) | payer OTHER, BC ==
[2017-10-02 09:30] LABS: BLOOD UREA NITROGEN 56 mg/dl (7-18); BUN/CREATININE RATIO 27.5 (10-20); CARBON DIOXIDE 20 mmol/L (21-32); CHLORIDE 110 mmol/L (98-107); CREATININE 2.05 mg/dl (0.60-1.40); GLUCOSE 103 mg/dl (70-99); POTASSIUM 5.2 mmol/L (3.5-5.1); SODIUM 140 mmol/L (136-145)
== END | disposition home or self-care (01) ==
LOC: C.LABFOXDH 09:11
PROVIDERS: ATTEND Internal Medicine Hospice and Palliative Medicine
DX: R18.8 Other ascites (principal)

== ENCOUNTER → 2017-11-02 | Outpatient (CLI) | payer OTHER, BC ==
[~2017-11-02] MED LIST changes: +GABA-1219 PO; -GABA1CAP4 PO; +LACT10SO53 PO; -LCTS240 PO; +SALI-3 NAE; -SALI1SPR3 NAE
[2017-11-02 08:41] LABS: ALBUMIN 3.5 gm/dl (3.4-5.0); BLOOD UREA NITROGEN 95 mg/dl (7-18); CALCIUM 8.6 mg/dl (8.5-10.1); CARBON DIOXIDE 19 mmol/L (21-32); CREATININE 2.29 mg/dl (0.60-1.40); GLUCOSE 108 mg/dl (70-99); PHOSPHORUS 4.7 mg/dl (2.5-4.9); POTASSIUM 4.8 mmol/L (3.5-5.1); SODIUM 135 mmol/L (136-145)
== END | disposition home or self-care (01) ==
LOC: C.LABFOXDH 08:05
PROVIDERS: ATTEND Internal Medicine Nephrology
DX: N18.3 Chronic kidney disease, stage 3 (moderate) (principal); N25.81 Secondary hyperparathyroidism of renal origin

== ENCOUNTER → 2017-12-03 | Outpatient (CLI) | payer OTHER, BC ==
[~2017-12-03] MED LIST changes: -GABA-1219 PO; +GABA1CAP4 PO; -LACT10SO53 PO; +LCTS240 PO; -SALI-3 NAE; +SALI1SPR3 NAE
[2017-12-03 08:41] LABS: ALBUMIN 3.5 gm/dl (3.4-5.0); BLOOD UREA NITROGEN 78 mg/dl (7-18); CALCIUM 8.9 mg/dl (8.5-10.1); CARBON DIOXIDE 20 mmol/L (21-32); CREATININE 2.22 mg/dl (0.60-1.40); GLUCOSE 119 mg/dl (70-99); PHOSPHORUS 4.3 mg/dl (2.5-4.9); POTASSIUM 5.1 mmol/L (3.5-5.1); SODIUM 136 mmol/L (136-145)
== END | disposition home or self-care (01) ==
LOC: C.LABFOXDH 07:55
PROVIDERS: ATTEND Internal Medicine Nephrology
DX: N18.3 Chronic kidney disease, stage 3 (moderate) (principal)

== ENCOUNTER → 2018-01-02 | Outpatient (CLI) | payer OTHER, BC ==
[~2018-01-02] MED LIST changes: +GABA-1219 PO; -GABA1CAP4 PO
[2018-01-02 08:23] LABS: HEMATOCRIT 33.7 % (42-52); HEMOGLOBIN 10.9 g/dL (14.0-18.0); MEAN CELL VOLUME 94.4 fL (80-100); MEAN CORPUSCULAR HEMOGLOBIN 30.5 pg (25-34); MEAN CORPUSCULAR HGB CONC 32.3 g/dl (32-36); MEAN PLATELET VOLUME 11.7 fL (7.4-10.4); PLATELET COUNT 118 K/uL (130-400); WHITE BLOOD COUNT 4.34 K/uL (4.8-10.8)
[2018-01-02 08:31] LABS: ALBUMIN 3.5 gm/dl (3.4-5.0); BLOOD UREA NITROGEN 73 mg/dl (7-18); CALCIUM 8.8 mg/dl (8.5-10.1); CARBON DIOXIDE 26 mmol/L (21-32); CREATININE 1.98 mg/dl (0.60-1.40); GLUCOSE 99 mg/dl (70-99); POTASSIUM 4.7 mmol/L (3.5-5.1); SODIUM 136 mmol/L (136-145)
[2018-01-02 08:35] LABS: ALKALINE PHOSPHATASE 141 U/L (45-117); ALT/SGPT 21 U/L (12-78); AST/SGOT 26 U/L (15-37); TOTAL PROTEIN 7.9 gm/dl (6.4-8.2)
[2018-01-02 08:54] LABS: ALBUMIN 3.6 gm/dl (3.4-5.0); BLOOD UREA NITROGEN 75 mg/dl (7-18); CALCIUM 8.8 mg/dl (8.5-10.1); CARBON DIOXIDE 25 mmol/L (21-32); CREATININE 1.93 mg/dl (0.60-1.40); GLUCOSE 98 mg/dl (70-99); PHOSPHORUS 4.3 mg/dl (2.5-4.9); POTASSIUM 4.7 mmol/L (3.5-5.1); SODIUM 137 mmol/L (136-145)
== END | disposition home or self-care (01) ==
LOC: C.LABFOXDH 07:57
PROVIDERS: ATTEND Internal Medicine Nephrology
DX: K74.60 Unspecified cirrhosis of liver (principal); D64.9 Anemia, unspecified; N18.3 Chronic kidney disease, stage 3 (moderate)

== ENCOUNTER → 2018-01-31 | Outpatient (CLI) | payer OTHER, BC ==
[2018-01-31 10:07] LABS: ALBUMIN 3.4 gm/dl (3.4-5.0); BLOOD UREA NITROGEN 78 mg/dl (7-18); CALCIUM 8.5 mg/dl (8.5-10.1); CARBON DIOXIDE 22 mmol/L (21-32); CREATININE 2.16 mg/dl (0.60-1.40); GLUCOSE 104 mg/dl (70-99); PHOSPHORUS 4.4 mg/dl (2.5-4.9); POTASSIUM 5.4 mmol/L (3.5-5.1); SODIUM 141 mmol/L (136-145)
== END | disposition home or self-care (01) ==
LOC: C.LABFOXDH 08:49
PROVIDERS: ATTEND Internal Medicine Nephrology
DX: N18.3 Chronic kidney disease, stage 3 (moderate) (principal)

== ENCOUNTER → 2018-03-01 | Outpatient (CLI) | payer OTHER, BC ==
[~2018-03-01] MED LIST changes: +SALI-3 NAE; -SALI1SPR3 NAE
[2018-03-01 10:57] LABS: ALBUMIN 3.7 gm/dl (3.4-5.0); BLOOD UREA NITROGEN 87 mg/dl (7-18); CALCIUM 8.5 mg/dl (8.5-10.1); CARBON DIOXIDE 24 mmol/L (21-32); CREATININE 2.51 mg/dl (0.60-1.40); GLUCOSE 100 mg/dl (70-99); POTASSIUM 5.2 mmol/L (3.5-5.1); SODIUM 137 mmol/L (136-145)
== END | disposition home or self-care (01) ==
LOC: C.LABFOXDH 08:06
PROVIDERS: ATTEND Internal Medicine Nephrology
DX: N18.3 Chronic kidney disease, stage 3 (moderate) (principal)

== ENCOUNTER → 2018-03-18 | Outpatient (CLI) | payer OTHER, BC | END | disposition home or self-care (01) | LOC: C.LABFOXDH 08:49 | PROVIDERS: ATTEND Internal Medicine | DX: R63.5 Abnormal weight gain (principal); I50.9 Heart failure, unspecified ==

== ENCOUNTER → 2018-05-29 | Outpatient (CLI) | payer OTHER, BC ==
[~2018-05-29] MED LIST changes: +LACT10SO53 PO; -LCTS240 PO
[2018-05-29 08:36] LABS: ALBUMIN 3.5 gm/dl (3.4-5.0); BLOOD UREA NITROGEN 90 mg/dl (7-18); CALCIUM 8.9 mg/dl (8.5-10.1); CARBON DIOXIDE 26 mmol/L (21-32); CREATININE 2.46 mg/dl (0.60-1.40); GLUCOSE 104 mg/dl (70-99); PHOSPHORUS 4.4 mg/dl (2.5-4.9); POTASSIUM 4.8 mmol/L (3.5-5.1); SODIUM 136 mmol/L (136-145)
== END | disposition home or self-care (01) ==
LOC: C.LABFOXDH 07:44
PROVIDERS: ATTEND Internal Medicine Nephrology
DX: R18.8 Other ascites (principal)

== ENCOUNTER → 2018-06-28 | Outpatient (CLI) | payer OTHER, BC ==
[2018-06-28 09:54] LABS: ALBUMIN 3.4 gm/dl (3.4-5.0); BLOOD UREA NITROGEN 93 mg/dl (7-18); CALCIUM 8.9 mg/dl (8.5-10.1); CARBON DIOXIDE 26 mmol/L (21-32); CREATININE 2.46 mg/dl (0.60-1.40); GLUCOSE 110 mg/dl (70-99); PHOSPHORUS 4.8 mg/dl (2.5-4.9); POTASSIUM 5.3 mmol/L (3.5-5.1); SODIUM 136 mmol/L (136-145)
== END | disposition home or self-care (01) ==
LOC: C.LABFOXDH 09:22
PROVIDERS: ATTEND Internal Medicine Nephrology
DX: R18.8 Other ascites (principal)